=== PATIENT | male | born 1975 ===

== ENCOUNTER 2021-05-01 14:17 | Inpatient (IN) | payer BC, OTHER ==
[2021-05-01] MEDS ORDERED: MIDAZOLAM 1 MG/ML 5 ML VIAL IV STA (14:20)
[2021-05-01] MEDS ORDERED: ROCURONIUM 10 MG/ML (5 ML VIAL) IV STA (14:20)
[2021-05-01] MEDS ORDERED: AMIODARONE 360 MG in DEXTROSE 5% IN WATER 200 ML IV ONE ×2 (14:30)
[2021-05-01] MEDS ORDERED: METOPROLOL TARTRATE 5 MG/5 ML VIAL IVP STA (14:33)
[2021-05-01] MEDS ORDERED: NOREPINEPHRINE 4 MG in SODIUM CHLORIDE 0.9% 250 ML IV SCH (14:35)
[2021-05-01] MEDS ORDERED: NALOXONE 0.4 MG/ML 1 ML VIAL IV PRN (14:36)
[2021-05-01] MEDS ORDERED: HEPARIN SODIUM 1,000 UN/ML (10ML VL) IV STA (14:38)
--- NOTE | 2021-05-01 14:40 | ED ---
General Adult HPI - General Stated complaint: ROSC Source: EMS, RN notes reviewed, old records reviewed - History of Present Illness Initial comments: 45 YO presenting status post cardiac arrest. Initial call according to EMS was for an individual had collapsed while at work. He was found to be in the field. He was defibrillated by EMS. He received BVM respiration support during transport. He did also receive epinephrine and lidocaine prehospital. He had 2 episodes of recurrent V. fib and ventricular tachycardia. He received 2 defibrillations and one cardioversion. He received 1 dose of epinephrine, 1 dose of Narcan, and lidocaine prehospital. Patient did receive BVM during transport. Upon arrival the patient had a brief episode when he was alert and able to state his name and subsequently returned to ventricular fibrillation. - Related Data Allergies Allergy/AdvReac Type Severity Reaction Status Date / Time Unable to Assess Allergy Verified 05/01/21 14:27 Review of Systems ROS Statement: Those systems with pertinent positive or pertinent negative responses have been documented in the HPI. ROS Other: All systems not noted in ROS Statement are negative. General Exam General appearance: obtunded, in distress Head exam: Present: atraumatic, normocephalic Eye exam: Present: normal appearance, PERRL Respiratory exam: Present: respiratory distress, other (Patient receiving BVM) Cardiovascular Exam: Present: other (No spontaneous heart sounds) GI/Abdominal exam: Present: soft. Absent: distended, tenderness, guarding Extremities exam: Present: normal capillary refill. Absent: pedal edema, calf tenderness Neurological exam: Present: other (Patient had a brief episode where he was alert, oriented 1, moving all extremities. This was prior to rsi medication) Skin exam: Present: cyanosis, diaphoretic Course - Reevaluation(s) Reevaluation #1: 05/01/21 14:53 Please review the medical record regarding exact ACLS medications given. EKG Findings - EKG Comments: EKG Findings:: EKG: Wide complex rhythm tachycardic at rate of 156, no definitive atrial activity QRS duration widened at 162, QTC 480, ST segment elevation in the precordial leads. Procedures - Intubation Sedative: Versed Mg Given: 5 Paralytic: Rocuronium Mg Given: 50 Laryngoscope: Christen Size: 3 ET Tube Size: 7.5 ET Tube Uncuffed: Yes Tube Secured Depth (cm): 23 Tube Secured Location: lips Tube Placement Confirmation: equal breath sounds bilaterally, no breath sounds over epigastrium Patient Tolerated Procedure: well Intubation Complications: difficult intubation Additional Comments: Difficult intubation due to body habitus airway positioning. Vocal cords not visualized, cricoid repositioning performed. Patient did receive BVM in between attempts to intubate. Medical Decision Making - Medical Decision Making Patient had an out of hospital ventricular fibrillation arrest with return of spontaneous circulation. He had recurrent ventricular fibrillation and did receive defibrillation in the emergency department. He was loaded with amiodarone. He had an episode of PEA and organized bradycardia treated with both epinephrine and atropine. He was intubated. Cardiology was able to assist in the resuscitation, Dr. Aguilera available in the emergency department. Patient ultimately did have return of spontaneous circulation and was taken urgently to the [facility]. All laboratory studies and further workup is pending. I did discuss case with the admitting physician Dr. Maldonado, Dr. Portillo and Dr. Aguilera. Critical Care Time Critical Care Time: Yes Total Critical Care Time: 35 Disposition Clinical Impression: Ventricular fibrillation Disposition: ADMITTED IP TO THIS HOSP Condition: Critical Is patient prescribed a controlled substance at d/c from ED?: No Decision to Admit Reason: Admit from EC Decision Date: 05/01/21 Decision Time: 15:06
[2021-05-01] MEDS ORDERED: IV FLUID CONTINUATION 1,000 ML IV ONE (14:42)
[2021-05-01] MEDS ORDERED: LIDOCAINE 1% INJ 10MG/ML (20 ML MDV) SQ ONE (14:54)
[2021-05-01] MEDS ORDERED: HEPARIN SODIUM 1,000 UN/ML (10ML VL) ONE ×2 (14:56→16:31)
--- NOTE | 2021-05-01 15:01 | P.CRDCN ---
History of Present Illness Consult date: 05/01/21 History of present illness: HISTORY OF PRESENT ILLNESS: This is a 45-year-old male with unknown past medical history who was brought to the hospital via EMS secondary to cardiac arrest. 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 EMS was called. The patient was found to be in V. tach when EMS arrived. He was defibrillated in the field by EMS and bagged on the way to the hospital. EKG completed by EMS revealed ST elevation in septal anterolateral leads. Apparently there was some thought that the patient may have used drugs while at work. He was given Narcan by EMS with no response. Patient was lethargic but talking when he arrived to the ER. Patient then went into Vfib arrest. Patient was defibrillated and CPR was initiated. Patient received epi x 3, atropine, amiodarone, and bicarb. Patient also received a 4000 unit IV heparin bolus. Patient achieved ROSC in the emergency room. Patient was intubated by the emergency room physician. Please see code sheet for thorough code details. REVIEW OF SYSTEMS: At the time of my exam: Unable to obtain at the time of my examination secondary to mechanical ventilation PHYSICAL EXAM: VITAL SIGNS: Reviewed. GENERAL: Well-developed, unresponsive and intubated HEENT: Head is normocephalic. Pupils are equal, round. Sclerae anicteric. Mucous membranes of the mouth are moist. Neck supple. No JVD or thyromegaly LUNGS: Respirations even and unlabored-being bagged by respiratory therapy. Lungs essentially clear to auscultation bilaterally. HEART: Tachycardic. Regular rate and rhythm. S1 and S2 heard. ABDOMEN: Soft. Nondistended. Nontender. EXTREMITIES: No clubbing or cyanosis. Peripheral pulses intact. No lower extremity edema NEUROLOGIC: Obtunded ASSESSMENT: STEMI VT/VF arrest PLAN: Patient is currently intubated and there is no family present in the emergency room Patient was emergently taken for cardiac catheterization with Dr. Aguilera Will obtain 2-D echo to assess cardiac structure and function after cardiac catheterization Add aspirin, Lipitor, metoprolol Continue amiodarone infusion Further recommendations pending patient's course Nurse practitioner note has been reviewed by physician. Signing provider agrees with the documented findings, assessment, and plan of care. Medications and Allergies Allergies Allergy/AdvReac Type Severity Reaction Status Date / Time Unable to Assess Allergy Verified 05/01/21 14:27 Physical Exam Vitals: Intake and Output 04/30/21 05/01/21 05/01/21 22:59 06:59 14:59 Other: Weight 110.631 kg Results Current Medications Generic Name Dose Route Start Last Admin Trade Name Freq PRN Reason Stop Dose Admin Amiodarone HCl 360 mg/ 200 mls @ 33.333 mls/hr 05/01/21 14:30 05/01/21 14:35 Dextrose/Water IV 05/01/21 20:29 1 mg/min .Q6H ONE 33.333 mls/hr Administration Protocol 1 MG/MIN Naloxone HCl 0.2 mg 05/01/21 14:36 Naloxone 0.4 Mg/Ml 1 Ml Vial IV Q2M PRN Opioid Reversal Intake and Output 04/30/21 05/01/21 05/01/21 22:59 06:59 14:59 Other: Weight 110.631 kg Patient Weight 05/02/21 06:59 Weight 110.631 kg
[2021-05-01] MEDS: HEPARIN SODIUM 1,000 UN/ML (10ML VL) IV ONE ×4 (15:19→16:19)
[2021-05-01 15:20] LABS: Basophils # (A) 0.1 k/uL (0-0.2); Basophils % (A) 1 %; Eosinophils # (A) 0.1 k/uL (0-0.7); Eosinophils % (A) 1 %; HCT 41.1 % (39.0-53.0); HGB 13.8 gm/dL (13.0-17.5); Lymphocytes % (A) 33 %; MCH 30.3 pg (25.0-35.0); MCHC 33.6 g/dL (31.0-37.0); MCV 90.3 fL (80.0-100.0); Mean Platelet Volume 7.6; Monocytes # (A) 0.7 k/uL (0-1.0); Monocytes % (A) 5 %; Neutrophils # (A) 9.1 k/uL (1.3-7.7); Neutrophils % (A) 60 %; Platelet Count 375 k/uL (150-450); RBC 4.55 m/uL (4.30-5.90); RDW 13.1 % (11.5-15.5); WBC 15.3 k/uL (3.8-10.6)
[2021-05-01 15:31] LABS: INR 1.1 (<1.2); Partial Thromboplastin Time 48.6 sec (22.0-30.0); Prothrombin Time 11.7 sec (9.0-12.0)
[2021-05-01 15:32] LABS: Albumin 3.2 g/dL (3.5-5.0); Calcium 7.4 mg/dL (8.4-10.2); Magnesium 2.2 mg/dL (1.6-2.3); Total Bilirubin 0.5 mg/dL (0.2-1.3); Total Protein 5.9 g/dL (6.3-8.2)
[2021-05-01 15:34] VITALS: RESP 14
[2021-05-01 15:35] VITALS: BP 146/117; PULSE 135
[2021-05-01] MEDS ORDERED: IOPAMIDOL-370 100ML BTL INJ ONE (15:44)
[2021-05-01] MEDS: MIDAZOLAM 2 MG/2 ML VIAL IV ONE ×2 (16:07→16:45)
[2021-05-01] MEDS ORDERED: MIDAZOLAM 2 MG/2 ML VIAL IV ONE ×3 (16:12→17:54)
[2021-05-01] MEDS ORDERED: fentaNYL (PF) 50 MCG/ML 2 ML AMP ONE (16:13)
[2021-05-01] MEDS: fentaNYL (PF) 50 MCG/ML 2 ML AMP IV ONE ×2 (16:16→16:24)
[2021-05-01] MEDS ORDERED: POTASSIUM CHLORIDE 20 MEQ in WATER FOR INJECTION 1 100ML.BAG IVPB STA (16:18)
[2021-05-01] MEDS ORDERED: HEPARIN SODIUM,PORCINE 30 ML 30 ML ONE (16:31)
[2021-05-01] MEDS ORDERED: ASPIRIN 325 MG TAB ONE (16:56)
[2021-05-01] MEDS ORDERED: ASPIRIN 325 MG TAB OG-TUBE ONE (17:17)
[2021-05-01] MEDS ORDERED: CHLORHEXIDINE GLUCONATE 15 ML CUP MUCOUS MEM ONE (17:30)
[2021-05-01] MEDS ORDERED: SODIUM CHLORIDE 0.9% 1,000 ML IV ONE (17:45)
--- NOTE | 2021-05-01 17:46 | PCN ---
PROCEDURE NOTE DATE OF SERVICE: 05/01/2021. PROCEDURE: 1. Left heart catheterization and coronary angiography. 2. Impella heart pump placement from right femoral approach. Impella CP was placed with a 14-Chilean introducer. 3. Unsuccessful PTCA of a totally occluded LAD. PERFORMED BY: Dr. Chrissy Aguilera. ANESTHESIA: Moderate conscious sedation time was 107 minutes. 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 He was attended to by the EMT, who shocked him because of ventricular tachycardia, brought him to the emergency room, where he was again in cardiac arrest requiring multiple shocks and prolonged CPR with intubation performed in the ER by Dr. Nassar. Subsequently on Levophed drip, his pressure finally came back after prolonged CPR. He was brought to the cardiac pathology laboratory director and I talked to the sister, who was only available relative, on the phone, explained to her that we were dealing with a cardiac arrest and cardiogenic shock with a mortality rate of nearly 80%. After this discussion, I proceeded with the procedure. PROCEDURE NOTE: Under local anesthesia and strict aseptic precautions, a 6-Chilean introducer was placed in the right femoral vein and another 6-Chilean introducer in the right femoral artery. Under fluoroscopic guidance, I used an 8-Chilean and 12-Chilean dilator and then placed a 14-Chilean introducer. Subsequently I advanced an 0.035 wire with a pigtail catheter and crossed the LV. After I crossed the LV with the wire in the left ventricle, the patient went into ventricular tachycardia twice, requiring to be shocked, and he was back in sinus rhythm with sinus tachycardia. He also received 2.5 mg of metoprolol. I exchanged the wire for an 0.018 Impella wire, and over this Impella wire I advanced and positioned the Impella in a good position with decent recordings and good cardiac output of 3.4 L. The waveform was very good. Subsequently I performed coronary angiography with a right coronary diagnostic catheter and noted that the RCA was totally occluded. I then performed with a JL4 guide catheter left coronary angiogram and noted that the LAD was totally occluded after a septal branch. Circumflex did not have significant disease. I then proceeded with PCI. I used initially a run-through wire, but I was unable to cross the total occlusion which appeared now to be a chronic occlusion. I had considerable difficulty getting across the total occlusion, and the wire kept going to the septal branch. I used different combinations. With a 45-degree Supercross and a run-through wire also, I could not cross the total occlusion. At this point I decided to send him to [facility], since this seems to be more or less of a chronic occlusion. I spoke to Dr. Lino and explained to him that the patient had stabilized with Impella placement. He was on 5 mcg of Levophed. Pressure was about 118 systolic. Urine output was fairly decent once Whitten was placed and his cardiac output was 3.4 L. He will be transferred by air ambulance to [facility] pathology laboratory director for possible intervention of total occlusion of the LAD which I could not open and could not cross with a wire. I discussed this matter in detail with the patient's father and mother and also his friend who was here in the waiting room. The patient will be transferred expeditiously and I will have the parents see him prior to the transfer. This was an unsuccessful PTCA, but Impella placement helped to stabilize the patient very well. Right lower extremity Doppler pulse was good. The patient has been sedated on a propofol drip, intubated. His oxygen saturation was 98%. Blood pressure was about 118/70 with 5 mcg of Levophed and Impella with a cardiac output of 3.4 L. CARDIAC CATHETERIZATION FINDINGS: RIGHT CORONARY ARTERY: Totally occluded vessel without much antegrade flow. There were some late collaterals filling the LAD system. LEFT MAIN CORONARY ARTERY: Short, patent, disease-free vessel that bifurcates into LAD and circumflex. LEFT ANTERIOR DESCENDING CORONARY ARTERY: This vessel seems to be totally occluded after a septal branch. The diagonal branches are seen to fill late. LAD also seems to fill late, but this appears to be almost like a chronic occlusion. The septal branch is the only branch that has some flow from the LAD. LEFT POSTERIOR CIRCUMFLEX CORONARY ARTERY: Technically a codominant type vessel, gives off a first obtuse marginal then runs in the AV groove, gives 2 other obtuse marginal branches and then an AV groove branch. All these vessels have 30% to 40% narrowing and also the circumflex provides collaterals to the distal RCA branches. Circumflex therefore is nondominant, good-caliber, good-distribution vessel with 30% to 40% narrowing involving the obtuse marginal system with collaterals to the RCA. RECOMMENDATIONS: Impella placement and PCI of LAD. PCI was unsuccessful and Impella was placed successfully. Patient will be sent to [facility] for additional efforts for opening up the LAD. This was explained to the patient's family in detail. MMCHANELLE / MARIA ESTHERN: [phone] /
[2021-05-01] MEDS ORDERED: ATORVASTATIN 80 MG TAB PO SCH (21:00)
[2021-05-01] MEDS ORDERED: METOPROLOL TARTRATE 25 MG TAB PO SCH (21:00)
--- NOTE | 2021-05-01 21:45 | P.HPIM ---
History of Present Illness H&P Date: 05/01/21 Chief Complaint: s/p Cardiac arrest on field Mr. Dean is a 45-year-old male who presented to the emergency department status post cardiac arrest. The initial call to the hospital ER by EMS was for an individual who collapsed at work. Patient was found to be in ventricular tachycardia by EMS and defibrillator was applied in the field and he was bagged on the way to the hospital. EKG by EMS showed ST elevation in septal and anterolateral leads. Patient was lethargic but was communicating when he arrived to the ER then he went to [facility] and CPR was initiated. Patient received epi x3, atropine, amiodarone and bicarb and also received 4000 units of IV heparin bolus. He was intubated in the ER and STEMI code was alerted. Cardiology Dr. HUMPHREY Aguilera attended him, he was taken to the [facility] immediately. Then patient was found to have significant stenosis of right coronary artery and also left anterior descending artery. It was difficult occlusion to get through. So Impella was placed. Dr. Aguilera contacted Dr. Rai at [facility] and the patient to be airlifted to [facility]. Patient's family members were contacted about it and agreed with the transfer. I saw the patient in the [facility], he was intubated saturating at 98%. He is sedated on propofol drip with blood pressure around 130/90, on 5 mics of Levophed and Impella in place. [facility] transfer team was in the [facility] around 6 PM and he was airlifted to [facility] around 6:40 PM. Review of Systems ROS unobtainable: due to endotracheal tube Past Medical History Past Medical History: Unable to Obtain History of Any Multi-Drug Resistant Organisms: Unobtainable Past Surgical History: Unable to Obtain Past Psychological History: Unable to Obtain Smoking Status: Unknown if ever smoked Past Alcohol Use History: Unable to Obtain Past Drug Use History: Unable to Obtain Medications and Allergies Allergies Allergy/AdvReac Type Severity Reaction Status Date / Time Unable to Assess Allergy Verified 05/01/21 14:27 Physical Exam Vitals: Vital Signs Pulse Resp BP Pulse Ox 05/01/21 14:35 135 H 14 146/117 98 05/01/21 14:33 154 H 14 199/139 86 L Intake and Output 05/01/21 05/01/2105/01/21 06:59 14:59 22:59 Other: Weight 110.631 kg Patient is currently in the [employer] [facility] on the table. He is intubated and sedated. Pupils are equal and reactive to light. He is on no propofol drip. S1-S2 heard lungs are clear to auscultation. No abdominal distention. No lower extremity edema and peripheral pulses are felt bilaterally. Results CBC & Chem 7: 05/01/21 15:06 05/01/21 15:06 Labs: Abnormal Lab Results - Last 24 Hours (Table) 05/01/21 05/01/21 05/01/21 Range/Units 15:06 15:06 15:06 WBC 15.3 H (3.8-10.6) k/uL Neutrophils # 9.1 H (1.3-7.7) k/uL Lymphocytes # 5.0 H (1.0-4.8) k/uL APTT 48.6 H (22.0-30.0) sec Potassium 3.0 L (3.5-5.1) mmol/L Carbon Dioxide 16 L (22-30) mmol/L Creatinine 1.29 H (0.66-1.25) mg/dL Glucose 329 H (74-99) mg/dL Calcium 7.4 L (8.4-10.2) mg/dL AST 168 H (17-59) U/L ALT 124 H (4-49) U/L Troponin I (0.000-0.034) ng/mL Total Protein 5.9 L (6.3-8.2) g/dL Albumin 3.2 L (3.5-5.0) g/dL 05/01/21 Range/Units 15:06 WBC (3.8-10.6) k/uL Neutrophils # (1.3-7.7) k/uL Lymphocytes # (1.0-4.8) k/uL APTT (22.0-30.0) sec Potassium (3.5-5.1) mmol/L Carbon Dioxide (22-30) mmol/L Creatinine (0.66-1.25) mg/dL Glucose (74-99) mg/dL Calcium (8.4-10.2) mg/dL AST (17-59) U/L ALT (4-49) U/L Troponin I 0.121 H* (0.000-0.034) ng/mL Total Protein (6.3-8.2) g/dL Albumin (3.5-5.0) g/dL Assessment and Plan Assessment: ASSESSMENT Status post cardiac arrest on field ST elevation [place] Acute respiratory failure secondary to cardiogenic shock Status post intubation and mechanical ventilation Status post Impella device in place Obesity with BMI of 33 Patient has been airlifted to [facility] around 6:40 PM today.
[2021-05-02] MEDS ORDERED: ASPIRIN 81 MG PO SCH (09:00)
== END 2021-05-01 19:12 | disposition short-term general hospital (02) | DRG 215 ==
LOC: EC 14:17 → 2SICU 14:37
PROVIDERS: ADMIT Internal Medicine; ATTEND Internal Medicine
PROC: 3E033XZ Introduction of Vasopressor into Peripheral Vein, Percutaneous Approach (ICD-10-PCS; 2021-05-01)
PROC: 4A023N7 Measurement of Cardiac Sampling and Pressure, Left Heart, Percutaneous Approach (ICD-10-PCS; principal; 2021-05-01 15:15)
PROC: B2111ZZ Fluoroscopy of Multiple Coronary Arteries using Low Osmolar Contrast (ICD-10-PCS; principal; 2021-05-01 15:15)
PROC: 02HA3RZ Insertion of Short-term External Heart Assist System into Heart, Percutaneous Approach (ICD-10-PCS; principal; 2021-05-01 15:15)
PROC: 5A0221D Assistance with Cardiac Output using Impeller Pump, Continuous (ICD-10-PCS; principal; 2021-05-01 15:15)
PROC: 0BH17EZ Insertion of Endotracheal Airway into Trachea, Via Natural or Artificial Opening (ICD-10-PCS; 2021-05-01 15:15)
PROC: 5A1935Z Respiratory Ventilation, Less than 24 Consecutive Hours (ICD-10-PCS; 2021-05-01 15:15)
DX: I49.01 Ventricular fibrillation (principal); J96.00 Acute respiratory failure, unspecified whether with hypoxia or hypercapnia; I21.3 ST elevation (STEMI) myocardial infarction of unspecified site; I46.2 Cardiac arrest due to underlying cardiac condition; I47.2 Ventricular tachycardia; I25.10 Atherosclerotic heart disease of native coronary artery without angina pectoris; T88.4XXA Failed or difficult intubation, initial encounter; E66.9 Obesity, unspecified; Z68.33 Body mass index [BMI] 33.0-33.9, adult
CPT/HCPCS: 32551; 80053; 83735; 84484; 85025; 85610; 85730; 92950; 93005; 93454; 94002; 96365; 96375; 99291

== ENCOUNTER → 2021-06-27 | Outpatient (CLI) | payer BC ==
[2021-06-27 20:32] LABS: African American GFR (CKD) 51.9 (60.0-200.0); Anion Gap 14.8 mmol/L (10.00-18.00); Blood Urea Nitrogen 23.4 mg/dL (9.0-27.0); Calcium 9.5 mg/dL (8.7-10.3); Carbon Dioxide 21.2 mmol/L (20.0-27.5); Non-African American GFR(CKD) 44.8 (60.0-200.0); Potassium 4.6 mmol/L (3.5-5.5)
== END | disposition home or self-care (01) ==
LOC: LABWHC1 11:44
PROVIDERS: ATTEND Nurse Practitioner
DX: N17.9 Acute kidney failure, unspecified (principal); I10 Essential (primary) hypertension; I21.9 Acute myocardial infarction, unspecified
CPT/HCPCS: 36415; 80048

== ENCOUNTER 2022-02-27 09:47 | Observation (INO) | payer BC, OTHER ==
[2022-02-27] MEDS ORDERED: SODIUM CHLORIDE 0.9% 1,000 ML IV STA (10:04)
[2022-02-27] MEDS ORDERED: SODIUM CHLORIDE 0.9% 500 ML 500 ML IV ONE (10:17)
--- NOTE | 2022-02-27 10:22 | ED ---
Arrhythmia/Palpitations HPI - General Chief Complaint: Arrhythmia/Palpitations Stated Complaint: high heart rate Time Seen by Provider: 02/27/22 10:03 Source: patient, RN notes reviewed Mode of arrival: ambulatory Limitations: no limitations - History of Present Illness Initial Comments: 46-year-old male with a history of [place] and cardiac arrest in April 2021 who presents today with complaints of elevated heart rate elevated blood pressure. He states that he takes his blood pressure twice a day he notices blood pressure was elevated 140/100 also notices heart rate was 107-108 when is normally around 55. He did take his medications this morning she had no chest pain fevers chills nausea vomiting sweats no chest shortness of breath no palpitations no change in medications no change in diet. 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 He drinks about 2000 mL of fluid a day he states. No other current complaints or modifying factors he did not feel his AICD go off at all. MD Complaint: rapid heart beat - Related Data Home Medications Medication Instructions Recorded Confirmed Amiodarone [Cordarone] 300 mg PO DAILY 02/27/22 02/27/22 Apixaban [Eliquis] 5 mg PO BID 02/27/22 02/27/22 Atorvastatin Calcium [Lipitor] 40 mg PO HS 02/27/22 02/27/22 Clopidogrel [Plavix] 75 mg PO DAILY 02/27/22 02/27/22 Losartan Potassium [Cozaar] 25 mg PO DAILY 02/27/22 02/27/22 Mexiletine HCl 150 mg PO TID@0630,1430,2230 02/27/22 02/27/22 carvediloL [Coreg] 6.25 mg PO BID 02/27/22 02/27/22 Allergies Allergy/AdvReac Type Severity Reaction Status Date / Time Tetanus Vaccines and Toxoid Allergy Rash/Hives Verified 02/27/22 11:22 Review of Systems ROS Statement: Those systems with pertinent positive or pertinent negative responses have been documented in the HPI. ROS Other: All systems not noted in ROS Statement are negative. Past Medical History Past Medical History: Unable to Obtain, Myocardial Infarction ([place]) Additional Past Medical History / Comment(s): cardiac arrest apr 2021. History of Any Multi-Drug Resistant Organisms: Unobtainable Past Surgical History: Unable to Obtain, Heart Catheterization With Stent Additional Past Surgical History / Comment(s): stent x6. Past Psychological History: Unable to Obtain Smoking Status: Never smoker Past Alcohol Use History: None Reported Past Drug Use History: None Reported General Exam - General Exam Comments Initial Comments: This is a well-developed well-nourished awake alert oriented 4 male Limitations: no limitations General appearance: alert, anxious Head exam: Present: atraumatic, normocephalic, normal inspection Eye exam: Present: normal appearance, PERRL, EOMI. Absent: scleral icterus, conjunctival injection, periorbital swelling ENT exam: Present: mucous membranes dry Neck exam: Present: normal inspection, full ROM, other (No stridor JVD or bruits). Absent: tenderness, meningismus, lymphadenopathy Respiratory exam: Present: normal lung sounds bilaterally. Absent: respiratory distress, wheezes, rales, rhonchi, stridor Cardiovascular Exam: Present: normal rhythm, tachycardia, normal heart sounds. Absent: systolic murmur, diastolic murmur, rubs, gallop, clicks GI/Abdominal exam: Present: soft, normal bowel sounds. Absent: distended, tenderness, guarding, rebound, rigid Extremities exam: Present: normal inspection, full ROM, normal capillary refill. Absent: tenderness, pedal edema, joint swelling, calf tenderness Back exam: Present: normal inspection Neurological exam: Present: alert, oriented X3, CN II-XII intact Psychiatric exam: Present: normal affect, normal mood Skin exam: Present: warm, dry, intact, normal color. 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 Interval 188 QRS duration 135 daily since QTC 364/388 interventricular conduction delay evidence of ST elevation in the anterolateral leads unclear whether this is acute. EKG obtained from [facility] where th e patient and evaluation shows similar configuration. EKG Findings - EKG Results: EKG: interpreted by ERMD (Y complex tachycardia of 105 WI interval 166 QRS duration to 45 daily since QTC 442/503 right bundle-branch block left posterior fascicular block evidence of anterolateral ST elevation this is compared to an EKG done on the prior admission when the patient presented with by complex tachycardia in Se) Medical Decision Making - Medical Decision Making Patient was observed in emergency department a repeat troponin was trending upward. Dr. Padilla was consulted and did see the patient in emergency department. Patient will be admitted for further evaluation. I did discuss case with Dr. Callaway - Lab Data Result diagrams: 02/27/22 10:12 02/27/22 10:12 Lab Results 02/27/22 02/27/22 02/27/22 Range/Units 10:12 10:12 10:12 WBC 9.3 (3.8-10.6) k/uL RBC 4.88 (4.30-5.90) m/uL Hgb 14.0 (13.0-17.5) gm/dL Hct 43.2 (39.0-53.0) % MCV 88.4 (80.0-100.0) fL MCH 28.7 (25.0-35.0) pg MCHC 32.5 (31.0-37.0) g/dL RDW 12.6 (11.5-15.5) % Plt Count 268 (150-450) k/uL MPV 7.5 Neutrophils % 69 % Lymphocytes % 20 % Monocytes % 8 % Eosinophils % 1 % Basophils % 0 % Neutrophils # 6.4 (1.3-7.7) k/uL Lymphocytes # 1.9 (1.0-4.8) k/uL Monocytes # 0.7 (0-1.0) k/uL Eosinophils # 0.1 (0-0.7) k/uL Basophils # 0.0 (0-0.2) k/uL PT 11.3 (9.0-12.0) sec INR 1.1 (<1.2) APTT 26.0 (22.0-30.0) sec Sodium 139 (137-145) mmol/L Potassium 4.2 (3.5-5.1) mmol/L Chloride 104 (98-107) mmol/L Carbon Dioxide 27 (22-30) mmol/L Anion Gap 8 mmol/L BUN 15 (9-20) mg/dL Creatinine 1.54 H (0.66-1.25) mg/dL Est GFR (CKD-EPI)AfAm 62 (>60 ml/min/1.73 sqM) Est GFR (CKD-EPI)NonAf 54 (>60 ml/min/1.73 sqM) Glucose 141 H (74-99) mg/dL Calcium 9.4 (8.4-10.2) mg/dL Magnesium 2.0 (1.6-2.3) mg/dL Total Bilirubin 0.5 (0.2-1.3) mg/dL AST 59 (17-59) U/L ALT 75 H (4-49) U/L Alkaline Phosphatase 89 (38-126) U/L Troponin I (0.000-0.034) ng/mL Total Protein 7.7 (6.3-8.2) g/dL Albumin 4.4 (3.5-5.0) g/dL TSH <0.015 L (0.465-4.680) mIU/L 02/27/22 02/27/22 Range/Units 10:12 12:20 WBC (3.8-10.6) k/uL RBC (4.30-5.90) m/uL Hgb (13.0-17.5) gm/dL Hct (39.0-53.0) % MCV (80.0-100.0) fL MCH (25.0-35.0) pg MCHC (31.0-37.0) g/dL RDW (11.5-15.5) % Plt Count (150-450) k/uL MPV Neutrophils % % Lymphocytes % % Monocytes % % Eosinophils % % Basophils % % Neutrophils # (1.3-7.7) k/uL Lymphocytes # (1.0-4.8) k/uL Monocytes # (0-1.0) k/uL Eosinophils # (0-0.7) k/uL Basophils # (0-0.2) k/uL PT (9.0-12.0) sec INR (<1.2) APTT (22.0-30.0) sec Sodium (137-145) mmol/L Potassium (3.5-5.1) mmol/L Chloride (98-107) mmol/L Carbon Dioxide (22-30) mmol/L Anion Gap mmol/L BUN (9-20) mg/dL Creatinine (0.66-1.25) mg/dL Est GFR (CKD-EPI)AfAm (>60 ml/min/1.73 sqM) Est GFR (CKD-EPI)NonAf (>60 ml/min/1.73 sqM) Glucose (74-99) mg/dL Calcium (8.4-10.2) mg/dL Magnesium (1.6-2.3) mg/dL Total Bilirubin (0.2-1.3) mg/dL AST (17-59) U/L ALT (4-49) U/L Alkaline Phosphatase (38-126) U/L Troponin I 0.018 0.031 (0.000-0.034) ng/mL Total Protein (6.3-8.2) g/dL Albumin (3.5-5.0) g/dL TSH (0.465-4.680) mIU/L - Radiology Data Radiology results: report reviewed (Imaging reviewed as well as report no acute findings), image reviewed Critical Care Time Critical Care Time: Yes Total Critical Care Time: 39 Critical Care Time: Critical care time including initial presentation with history physical labs x- rays multiple reevaluation the patient multiple discussions with the patient family discussion with the admitting physician and consult physicians. Disposition Clinical Impression: Wide-complex tachycardia, Hypertension, Elevated troponin Disposition: ADMITTED IP TO THIS [facility] Condition: Stable Referrals: Nonstaff,Physician [REFERRING] - 1-2 days Decision Date: 02/27/22 Decision Time: 15:00
[2022-02-27 10:38] LABS: Basophils % (A) 0 %; Eosinophils % (A) 1 %; HCT 43.2 % (39.0-53.0); Lymphocytes # (A) 1.9 k/uL (1.0-4.8); Lymphocytes % (A) 20 %; MCH 28.7 pg (25.0-35.0); MCHC 32.5 g/dL (31.0-37.0); MCV 88.4 fL (80.0-100.0); Mean Platelet Volume 7.5; Monocytes # (A) 0.7 k/uL (0-1.0); Monocytes % (A) 8 %; Neutrophils # (A) 6.4 k/uL (1.3-7.7); Neutrophils % (A) 69 %; Platelet Count 268 k/uL (150-450); RBC 4.88 m/uL (4.30-5.90); RDW 12.6 % (11.5-15.5); WBC 9.3 k/uL (3.8-10.6)
[2022-02-27 10:39] LABS: Eosinophils # (A) 0.1 k/uL (0-0.7)
[2022-02-27 10:54] LABS: ALT 75 U/L (4-49); AST 59 U/L (17-59); African American GFR (CKD) 62 (>60 ml/min/1.73 sqM); Albumin 4.4 g/dL (3.5-5.0); Alkaline Phosphatase 89 U/L (38-126); Anion Gap 8 mmol/L; Blood Urea Nitrogen 15 mg/dL (9-20); Calcium 9.4 mg/dL (8.4-10.2); Carbon Dioxide 27 mmol/L (22-30); Chloride 104 mmol/L (98-107); Glucose 141 mg/dL (74-99); Non-African American GFR(CKD) 54 (>60 ml/min/1.73 sqM); Potassium 4.2 mmol/L (3.5-5.1); Sodium 139 mmol/L (137-145); Total Bilirubin 0.5 mg/dL (0.2-1.3); Total Protein 7.7 g/dL (6.3-8.2)
[2022-02-27 11:12] LABS: INR 1.1 (<1.2); Prothrombin Time 11.3 sec (9.0-12.0)
--- NOTE | 2022-02-27 11:20 | XR ---
EXAMINATION TYPE: XR chest 2V DATE OF EXAM: 02/27/2022 COMPARISON: NONE HISTORY: Dysrhythmia TECHNIQUE: Frontal and lateral views of the chest are obtained. FINDINGS: There is a generator in the left pectoral region, lead in the right ventricle. There is no focal air space opacity, pleural effusion, or pneumothorax seen. The cardiac silhouette size is bord hannah enlarged, coronary stent is in place, there are coronary artery calcifications. The osseous structures are intact, there is a spinal curvature. IMPRESSION: Heart size is borderline increased.
--- NOTE | 2022-02-27 13:49 | P.CRDCN ---
History of Present Illness History of present illness: This is a 46 year old male with a past medical history of VT/VF cardiac arrest transferred to [facility] in cardiogenic shock with STEMI 04/2021 status post cardiac catheterization revealed a total occlusion of the LAD chronic with no viable myocardium in the distribution, RCA was chronically totally occluded and patient underwent stenting RCA at [facility], ischemic cardiomyopathy with severe LV dysfunction status post AICD implantation at [facility], LV thrombus on Eliquis, dyslipidemia. He follows with Dr. Tamez at [facility] and has seen Dr. Aguilera in the past. We have been consulted for tachycardia and EKG changes. Patient presents emergency department secondary to his BP and heart rate being abnormal at home. He states he takes his BP morning and night. This morning BP 150/100, HR 107. He states this was higher than his normal readings, he came to the ER. He did not have any symptoms. Denies any chest pain, shortness of breath, palpitations, lightheadedness, dizziness, syncope or near syncope. He is overall feeling well. No new medications or recent cardiac workup. DIAGNOSTICS * Inital EKG reveals sinus tachycardia, HR 105, right bundle branch block, left fasicular block * Repeat EKG sinus rhythm HR 72, right bundle-branch block, ST abnormalities in anterior leads * Echocardiogram is 06/2021 revealed an EF of 30%, hypokinesis anterolateral and inferolateral wall from the base, mandible, hypokinesia inferoseptal wall from the base midportion. Mild mitral regurgitation, mild tricuspid regurgitation * Telemetry tracings indicate sinus rhythm HR 60s-70s * Chest xray no focal consolidation, pleural effusion or pneumothorax. Cardiac silhouette size is borderline enlarged * Laboratory reviewed, troponin negative 2, CBC unremarkable, sodium 139, potassium 4.2, BUN 15, serum creatinine 1.5, TSH <0.015 * Current home cardiac medications include amiodarone 200 mg daily, atorvastatin 40 mg daily, losartan 25 mg daily, carvedilol 6.25 mg twice a day, Plavix 75 mg daily, Eliquis 5 mg twice a day, mexiletine 150mg TID REVIEW OF SYSTEMS At the time of my exam: CONSTITUTIONAL: Denies fever or chills. CARDIOVASCULAR: Denies chest pain, shortness of breath, orthopnea, PND or palpitations. RESPIRATORY: Denies cough. GASTROINTESTINAL: Denies abdominal pain, diarrhea, constipation, nausea or vomiting. MUSCULOSKELETAL: Denies myalgias. NEUROLOGIC: Denies numbness, tingling, headacbe or weakness. ENDOCRINE: Denies fatigue, weight change, polydipsia or polyurina. GENITOURINARY: Denies burning, hematuria or urgency with micturation. HEMATOLOGIC: Denies history of anemia or bleeding. PHYSICAL EXAMINATION Blood [id number] HR 67, afebrile 100% on room air CONSTITUTIONAL: No apparent distress. HEENT: Head is normocephalic. Pupils are equal, round. Sclerae anicteric. Mucous membranes of the mouth are moist. No JVD. No carotid bruit. CHEST EXAMINATION: Lungs are clear to auscultation. No chest wall tenderness is noted on palpation or with deep breathing. HEART EXAMINATION: Regular rate and rhythm. S1, S2 heard. No murmurs, gallops or rub. ABDOMEN: Soft, nontender. Positive bowel sounds. EXTREMITIES: 2+ peripheral pulses, no lower extremity edema and no calf tenderness. NEUROLOGIC EXAMINATION: Patient is awake, alert and oriented x3. ASSESSMENT Episode at home with elevated BP and tachycardia, patient asymptomatic Sinus tachycardia Abnormal EKG History of VT/VF cardiac arrest transferred to [facility] in cardiogenic shock with STEMI 04/2021 Coronary artery disease. with total occlusion of the LAD chronic with no viable myocardium in the distribution, RCA was chronically totally occluded s/p stenting RCA at [facility] Ischemic cardiomyopathy with severe LV dysfunction status post AICD implantation at [facility] History of LV thrombus on Eliquis Dyslipidemia PLAN Patient's EKG reviewed with Dr. Padilla, ST abnormalities in the anterior leads likely chronic. Troponin negative x 2. Patient is asymptomatic has no symptoms. We obtain records from [facility] to compare old EKG. Obtain 2D echocardiogram and doppler study to assess cardiac structure and function. Monitor on telemetry Continue home cardiac medications Further recommendations based on clinical course Nurse practitioner note has been reviewed by physician. Signing provider agrees with the documented findings, assessment, and plan of care. Past Medical History Past Medical History: Unable to Obtain, Myocardial Infarction ([place]) Additional Past Medical History / Comment(s): cardiac arrest apr 2021. History of Any Multi-Drug Resistant Organisms: Unobtainable Past Surgical History: Unable to Obtain, Heart Catheterization With Stent Additional Past Surgical History / Comment(s): stent x6. Past Psychological History: Unable to Obtain Smoking Status: Never smoker Past Alcohol Use History: None Reported Past Drug Use History: None Reported Medications and Allergies Home Medications Medication Instructions Recorded Confirmed Type Amiodarone [Cordarone] 300 mg PO DAILY 02/27/22 02/27/22 History Apixaban [Eliquis] 5 mg PO BID 02/27/22 02/27/22 History Atorvastatin Calcium [Lipitor] 40 mg PO HS 02/27/22 02/27/22 History Clopidogrel [Plavix] 75 mg PO DAILY 02/27/22 02/27/22 History Losartan Potassium [Cozaar] 25 mg PO DAILY 02/27/22 02/27/22 History Mexiletine HCl 150 mg PO TID@0630,1430,2230 02/27/22 02/27/22 History carvediloL [Coreg] 6.25 mg PO BID 02/27/22 02/27/22 History Allergies Allergy/AdvReac Type Severity Reaction Status Date / Time Tetanus Vaccines and Toxoid Allergy Rash/Hives Verified 02/27/22 11:22 Physical Exam Vitals: Vital Signs Temp Pulse Pulse Resp BP Pulse Ox 02/27/22 10:14 105 H 147/108 02/27/22 10:13 106 H 02/27/22 09:51 97.8 F 104 H 18 166/115 100 Intake and Output 02/26/22 02/27/22 02/27/22 22:59 06:59 14:59 Other: Weight 77.564 kg Results 02/27/22 10:12 02/27/22 10:12 Cardiac Enzymes 02/27/22 02/27/22 Range/Units 10:12 10:12 AST 59 (17-59) U/L Troponin I 0.018 (0.000-0.034) ng/mL Coagulation 02/27/22 Range/Units 10:12 PT 11.3 (9.0-12.0) sec APTT 26.0 (22.0-30.0) sec CBC 02/27/22 Range/Units 10:12 WBC 9.3 (3.8-10.6) k/uL RBC 4.88 (4.30-5.90) m/uL Hgb 14.0 (13.0-17.5) gm/dL Hct 43.2 (39.0-53.0) % Plt Count 268 (150-450) k/uL Comprehensive Metabolic Panel 02/27/22 Range/Units 10:12 Sodium 139 (137-145) mmol/L Potassium 4.2 (3.5-5.1) mmol/L Chloride 104 (98-107) mmol/L Carbon Dioxide 27 (22-30) mmol/L BUN 15 (9-20) mg/dL Creatinine 1.54 H (0.66-1.25) mg/dL Glucose 141 H (74-99) mg/dL Calcium 9.4 (8.4-10.2) mg/dL AST 59 (17-59) U/L ALT 75 H (4-49) U/L Alkaline Phosphatase 89 (38-126) U/L Total Protein 7.7 (6.3-8.2) g/dL Albumin 4.4 (3.5-5.0) g/dL Current Medications Generic Name Dose Route Start Last Admin Trade Name Freq PRN Reason Stop Dose Admin Amiodarone HCl 300 mg 02/28/22 09:00 Amiodarone 200 Mg Tab PO DAILY KRISHNA Apixaban 5 mg 02/27/22 21:00 Apixaban 5 Mg Tab PO BID KRISHNA Protocol Atorvastatin Calcium 40 mg 02/27/22 21:00 Atorvastatin 40 Mg Tab PO HS KRISHNA Carvedilol 6.25 mg 02/27/22 21:00 Carvedilol 6.25 Mg Tab PO BID KRISHNA Clopidogrel Bisulfate 75 mg 02/28/22 09:00 Clopidogrel 75 Mg Tab PO DAILY KRISHNA Sodium Chloride 1,000 mls @ 50 mls/hr 02/27/22 10:04 02/27/22 11:30 Saline 0.9% IV 02/28/22 06:03 Not Given .Q20H STA Losartan Potassium 25 mg 02/28/22 09:00 Losartan 25 Mg Tab PO DAILY KRISHNA Mexiletine HCl 150 mg 02/27/22 14:30 Mexiletine 150 Mg Cap PO TID@0630,1430,2230 KRISHNA Intake and Output 02/26/22 02/27/22 02/27/22 22:59 06:59 14:59 Other: Weight 77.564 kg Patient Weight 02/28/22 06:59 Weight 77.564 kg 02/27/22 10:12 02/27/22 10:12
[2022-02-27] MEDS ORDERED: NITROGLYCERIN SL TABS 0.4 MG TAB SUBLINGUAL PRN (15:23)
--- NOTE | 2022-02-27 15:49 | P.HPIM ---
History of Present Illness H&P Date: 02/27/22 Chief Complaint: hypertension, tachycardia 46-year-old man with a medical history of CAD, VT/VF cardiac arrest with STEMI in April 2021, hypertension, hyperlipidemia presented after noting elevated blood pressure and fast heart rate. Patient says that he takes his blood pressure twice a day and noticed that it was more elevated that is normal for him, at 140/100, he also noticed that he was tachycardic to 106 whereas normally he is 55. He states he has taken his blood pressure medications and heart medications. Otherwise, he has no symptoms. He denies fevers, chills, nausea, vomiting, chest pain, palpitations, syncope, presyncope, cough, dyspnea, abdominal pain, constipation, diarrhea, dysuria, dyschezia, numbness/weakness of extremities. In the emergency room, patient is afebrile, 166/115, heart rate 104, 100% on room air. CBC is unremarkable. Chemistries are unremarkable. LFTs show mild elevation of AST to 75, otherwise unremarkable. Initial troponin was 0.018. Repeat troponin was 0.031. TSH was less than 0.015, free T4 is pending. Coags are unremarkable. Initial EKG shows wide complex tachycardia likely sinus with aberrancy. Repeat EKG is in normal sinus rhythm with chronic ST elevation changes in the anterior leads. Chest x-ray demonstrates a heart size is borderline increased. Cardiology was consulted and recommended observing the patient for 1 night. All Systems reviewed and pertinent positives and negatives noted in HPI, all other symptoms are negative Gen: in no apparent distress, resting comfortably in bed Eyes: PERRL, no scleral injection or icterus HENT: normocephalic, atraumatic, good hearing acuity, moist mucous membranes Neck: no tracheal deviation, full range of motion Resp: good air exchange, breathing comfortably with no accessory muscle use, no tactile fremitus CVS: good distal perfusion x 4, no pitting edema GI: soft, NTTP, ND, no hepatosplenomegaly : no suprapubic tenderness, no CVAT, mijares catheter not present MSK: no clubbing, no cyanosis, no noted contractures of extremities Skin: no noted rashes, petechiae; temperature of skin is appropriate Neuro: moving all extremities without signs of weakness, CN II-XII intact Psych: cooperative, euthymic mood, insight and judgment intact Assessment/plan: Tachycardia Hypertension History of CAD History of cardiac arrest Hyperlipidemia Low TSH Plan: Admit to observation, telemetry -Cardiology consult -Obtain free T4 -Trend troponins -Resume home meds Past Medical History Past Medical History: Unable to Obtain, Myocardial Infarction ([place]) Additional Past Medical History / Comment(s): cardiac arrest apr 2021. History of Any Multi-Drug Resistant Organisms: Unobtainable Past Surgical History: Unable to Obtain, Heart Catheterization With Stent Additional Past Surgical History / Comment(s): stent x6. Past Psychological History: Unable to Obtain Smoking Status: Never smoker Past Alcohol Use History: None Reported Past Drug Use History: None Reported Medications and Allergies Home Medications Medication Instructions Recorded Confirmed Type Amiodarone [Cordarone] 300 mg PO DAILY 02/27/22 02/27/22 History Apixaban [Eliquis] 5 mg PO BID 02/27/22 02/27/22 History Atorvastatin Calcium [Lipitor] 40 mg PO HS 02/27/22 02/27/22 History Clopidogrel [Plavix] 75 mg PO DAILY 02/27/22 02/27/22 History Losartan Potassium [Cozaar] 25 mg PO DAILY 02/27/22 02/27/22 History Mexiletine HCl 150 mg PO TID@0630,1430,2230 02/27/22 02/27/22 History carvediloL [Coreg] 6.25 mg PO BID 02/27/22 02/27/22 History Allergies Allergy/AdvReac Type Severity Reaction Status Date / Time Tetanus Vaccines and Toxoid Allergy Rash/Hives Verified 02/27/22 11:22 Physical Exam Osteopathic Statement: *. No significant issues noted on an osteopathic structural exam other than those noted in the History and Physical/Consult. Vitals: Vital Signs Temp Pulse Pulse Resp BP Pulse Ox 02/27/22 10:14 105 H 147/108 02/27/22 10:13 106 H 02/27/22 09:51 97.8 F 104 H 18 166/115 100 Intake and Output 02/27/22 02/27/22 02/27/22 06:59 14:59 22:59 Other: Weight 77.564 kg Results CBC & Chem 7: 02/27/22 10:12 02/27/22 10:12 Labs: Abnormal Lab Results - Last 24 Hours (Table) 07/26/22 Range/Units 10:12 Creatinine 1.54 H (0.66-1.25) mg/dL Glucose 141 H (74-99) mg/dL ALT 75 H (4-49) U/L TSH <0.015 L (0.465-4.680) mIU/L
[2022-02-27] MEDS: MEXILETINE 150 MG CAP PO SCH ×2 (16:31→22:06)
[2022-02-27] MEDS ORDERED: carvediloL 6.25 MG TAB PO SCH (17:30)
[2022-02-27] MEDS ORDERED: ATORVASTATIN 40 MG TAB PO SCH (21:00)
[2022-02-27] MEDS: APIXABAN 5 MG TAB PO SCH (21:07)
[2022-02-27] MEDS: predniSONE 50 MG TAB PO SCH (21:07)
[2022-02-27] MEDS: carvediloL 6.25 MG TAB PO SCH (21:07)
--- NOTE | 2022-02-27 22:11 | US ---
EXAMINATION TYPE: US thyroid st tissue head/neck DATE OF EXAM: 02/27/2022 COMPARISON: NONE CLINICAL HISTORY: thyrotoxicosis. GLAND SIZE: Right Lobe: 3.7 x 2.3 x 2.1 cm Overall Parenchyma: heterogenous Left Lobe: 4.3 x 2.5 x 1.6 cm Overall Parenchyma: heterogeneous Isthmus Thickness: 0.2 cm No significant increased vascularity bilaterally. NODULES RIGHT: # of nodules measured on right: 0 LEFT: # of nodules measured on left: 0 ISTHMUS: # of nodules measured in the isthmus: 0 Bilateral neck scanned, no evidence of lymphadenopathy. IMPRESSION: Enlarged thyroid bilaterally without evidence of discrete nodule. Findings may relate to multinodular goiter. Correlate with serum markers.
[2022-02-28] MEDS: MEXILETINE 150 MG CAP PO SCH (06:16)
[2022-02-28 07:27] VITALS: BP 133/74; PULSE 63; RESP 12; TEMP 97.8
[2022-02-28] MEDS ORDERED: MEXILETINE 200 MG CAP PO SCH (08:45)
[2022-02-28] MEDS ORDERED: ASPIRIN 325 MG TAB PO SCH (09:00)
[2022-02-28] MEDS ORDERED: LOSARTAN 25 MG TAB PO SCH (09:00)
[2022-02-28] MEDS ORDERED: AMIODARONE 200 MG TAB PO SCH (09:00)
[2022-02-28] MEDS ORDERED: AMIODARONE 100 MG TAB PO SCH (09:00)
[2022-02-28] MEDS ORDERED: methIMAzole 5 MG TAB PO SCH (09:00)
[2022-02-28] MEDS ORDERED: CLOPIDOGREL 75 MG TAB PO SCH (09:00)
[2022-02-28] MEDS: APIXABAN 5 MG TAB PO SCH (09:16)
[2022-02-28] MEDS: carvediloL 6.25 MG TAB PO SCH (09:16)
[2022-02-28] MEDS: predniSONE 50 MG TAB PO SCH (09:17)
[2022-02-28 09:27] LABS: HDL Cholesterol 43.7 mg/dL (40.00-60.00); Triglycerides 45.2 mg/dL (0.00-149.00)
[2022-02-28 09:40] LABS: Chol/HDL Ratio 2.88 Ratio; LDL Cholesterol,Direct Reflex 73.5 mg/dL (0.00-129.00)
--- NOTE | 2022-02-28 09:49 | CA ---
Transthoracic Echo Report Name: Jaylin Dean Age: 46 Gender: M : 1975 Exam Date: 02/27/2022 13:37 Exam Location: [place] [facility] Ht (in): 67 Wt (lb): 171 Ordering Physician: Shana Sanders Attending/Referring Phys: Locomotive Inspector Alicia Page RDCS Procedure CPT: Indications: LV function Cardiac Hx: AICD Technical Quality: Good Contrast 1: Total Dose (mL): Contrast 2: Total Dose (mL): MEASUREMENTS (Male / Female) Normal Values 2D ECHO LV Diastolic Diameter PLAX 5.4 cm 4.2 - 5.9 / 3.9 - 5.3 cm LV Systolic Diameter PLAX 5.0 cm IVS Diastolic Thickness 1.0 cm 0.6 - 1.0 / 0.6 - 0.9 cm LVPW Diastolic Thickness 1.1 cm 0.6 - 1.0 / 0.6 - 0.9 cm LV Relative Wall Thickness 0.4 RV Internal Dim ED PLAX 3.7 cm LA Systolic Diameter LX 3.6 cm 3.0 - 4.0 / 2.7 - 3.8 cm LV Diastolic Volume MOD BP 159.9 cm??? 67 - 155 / 56 - 104 cm??? LV Systolic Volume MOD BP 79.9 cm??? 22 - 58 / 19 - 49 cm??? LV Ejection Fraction MOD BP 50.0 % >= 55 % LV Diastolic Volume MOD 4C 168.1 cm??? LV Systolic Volume MOD 4C 90.6 cm??? LV Ejection Fraction MOD 4C 46.1 % LV Diastolic Length 4C 10.3 cm LV Systolic Length 4C 8.9 cm LV Diastolic Volume MOD 2C 165.9 cm??? LV Systolic Volume MOD 2C 68.7 cm??? LV Ejection Fraction MOD 2C 58.6 % LV Diastolic Length 2C 9.0 cm LV Systolic Length 2C 5.7 cm LA Volume 55.3 cm??? 18 - 58 / 22 - 52 cm??? M-MODE Aortic Root Diameter MM 2.7 cm MV E Point Septal Separation 0.8 cm AV Cusp Separation MM 2.1 cm DOPPLER AV Peak Velocity 129.3 cm/s AV Peak Gradient 6.7 mmHg MV Area PHT 4.2 cm??? Mitral E Point Velocity 81.1 cm/s Mitral A Point Velocity 92.7 cm/s Mitral E to A Ratio 0.9 MV Deceleration Time 181.1 ms MV E' Velocity 5.9 cm/s Mitral E to MV E' Ratio 13.7 TR Peak Velocity 222.6 cm/s TR Peak Gradient 19.8 mmHg Right Ventricular Systolic Press 23.8 mmHg FINDINGS Left Ventricle Left ventricular ejection fraction is estimated at 30-35 %. Left ventricular cavity size normal. Borderline left ventricular hypertrophy. Anterior wall and septal akinesia Right Ventricle Mild right ventricular dilatation. Right ventricular systolic pressure within normal limits. Right Atrium Normal right atrial size Left Atrium Normal left atrial size. No evidence for an atrial septal defect. Mitral Valve Mitral annular calcification. Structurally normal mitral valve. No mitral stenosis, regurgitation or prolapse. Aortic Valve Trileaflet aortic valve. No aortic valve stenosis or regurgitation. Tricuspid Valve Mild tricuspid regurgitation. Pulmonic Valve Pulmonic valve not well visualized. Pericardium Normal pericardium. No pericardial effusion. Aorta Normal size aortic root and proximal ascending aorta. CONCLUSIONS Left ventricle is at upper limits of normal with the anteroseptal apical akinesia ejection fraction of 30-35% with mild right ventricular enlargement, no significant abnormality on the Doppler exam and no pericardial effusion Previewed by: Dr. Neida Aguilera MD (Electronically Signed) Final Date: 28 February 2022 09:48
--- NOTE | 2022-02-28 12:30 | P.DS ---
Providers Date of admission: 02/27/22 15:25 Expected date of discharge: 02/28/22 Attending physician: Travis Callaway MD Consults: 02/27/22 13:05 Consult Physician Urgent Consulting Provider: Erik Padilla Consult Reason/Comments: EKG changes, tachycardia Do you want consulting provider notified?: Already Contacted Primary care physician: Stated None Hospital Course: Amiodarone-induced thyroiditis Tachycardia Hypertension History of CAD History of cardiac arrest Hyperlipidemia 46-year-old man with a medical history of CAD, VT/VF cardiac arrest with STEMI in April 2021, hypertension, hyperlipidemia presented after noting elevated blood pressure and fast heart rate. In the emergency room, patient is afebrile, 166/115, heart rate 104, 100% on room air. CBC is unremarkable. Chemistries are unremarkable. LFTs show mild elevation of AST to 75, otherwise unremarkable. Initial troponin was 0.018. Repeat troponin was 0.031. TSH was less than 0.015, free T4 is pending. Coags are unremarkable. Initial EKG shows wide complex tachycardia likely sinus with aberrancy. Repeat EKG is in normal sinus rhythm with chronic ST elevation changes in the anterior leads. Chest x- ray demonstrates a heart size is borderline increased. Cardiology was consulted and recommended observing the patient for 1 night. Patient's free T4 ultimately came back high and patient was noted to have amiodarone-induced thyrotoxicosis. Patient was seen by cardiology who recommended discontinuing amiodarone, increasing mexiletine, starting methimazole. Patient was also started on steroid. Patient was referred to endocrinology as well as electrophysiology on follow-up. Patient was discharged with the medication regimen, and appropriate follow-up. Gen: in no apparent distress, resting comfortably in bed Eyes: PERRL, no scleral injection or icterus HENT: normocephalic, atraumatic, good hearing acuity, moist mucous membranes Neck: no tracheal deviation, full range of motion Resp: good air exchange, breathing comfortably with no accessory muscle use, no tactile fremitus CVS: good distal perfusion x 4, no pitting edema GI: soft, NTTP, ND, no hepatosplenomegaly : no suprapubic tenderness, no CVAT, mijares catheter not present MSK: no clubbing, no cyanosis, no noted contractures of extremities Skin: no noted rashes, petechiae; temperature of skin is appropriate Neuro: moving all extremities without signs of weakness, CN II-XII intact Psych: cooperative, euthymic mood, insight and judgment intact Patient Condition at Discharge: Good Plan - Discharge Summary New Discharge Prescriptions: New predniSONE [Deltasone] 20 mg PO DAILY #5 tab methIMAzole [Tapazole] 5 mg PO BID #60 tab Mexiletine [Mexitil] 200 mg PO Q8HR #90 cap Continue Losartan Potassium [Cozaar] 25 mg PO DAILY Clopidogrel [Plavix] 75 mg PO DAILY Mexiletine HCl 150 mg PO TID@0630,1430,2230 Atorvastatin Calcium [Lipitor] 40 mg PO HS carvediloL [Coreg] 6.25 mg PO BID Apixaban [Eliquis] 5 mg PO BID Discontinued Amiodarone [Cordarone] 300 mg PO DAILY Discharge Medication List Apixaban [Eliquis] 5 mg PO BID 02/27/22 [History] Atorvastatin Calcium [Lipitor] 40 mg PO HS 02/27/22 [History] Clopidogrel [Plavix] 75 mg PO DAILY 02/27/22 [History] Losartan Potassium [Cozaar] 25 mg PO DAILY 02/27/22 [History] Mexiletine HCl 150 mg PO TID@0630,1430,2230 02/27/22 [History] carvediloL [Coreg] 6.25 mg PO BID 02/27/22 [History] Mexiletine [Mexitil] 200 mg PO Q8HR #90 cap 02/28/22 [Rx] methIMAzole [Tapazole] 5 mg PO BID #60 tab 02/28/22 [Rx] predniSONE [Deltasone] 20 mg PO DAILY #5 tab 02/28/22 [Rx] Follow up Appointment(s)/Referral(s): Garcia Barboza MD [STAFF PHYSICIAN] - 03/06/22 10:15 am Ekaterinataff,Physician [REFERRING] - 1-2 days Fide Brown MD [STAFF PHYSICIAN] - 1 Week Discharge Disposition: HOME SELF-CARE
--- NOTE | 2022-02-28 13:29 | PN ---
PROGRESS NOTE This is a 46-year-old gentleman with significant ischemic cardiomyopathy, ejection fraction of 30% to 35%, with extensive wall motion abnormality in the LAD distribution. Patient presented with cardiac arrest sometime last fall. He had RCA PCI performed. Circumflex has no significant disease and LAD is totally occluded and chronic. Patient came in with tachycardia, palpitations, was in sinus tachycardia with a right bundle. This is a rate-related bundle branch block. Patient has previous anterior [place]. He is on amiodarone and mexiletine combination for ventricular tachycardia and sudden cardiac . He also has an ICD. However, his thyroid functions are abnormal. He is hyperthyroid with more than 2.0 of free T4 and also TSH is nondetectable. I am recommending we will discontinue amiodarone, increase mexiletine to 200 mg t.i.d., add Tapazole 5 mg b.i.d. Advised to see his zoogler and family member caretaker at [facility] and also seek endocrinology evaluation. I discussed my thoughts in detail with the patient and gave him written instructions. Physical exam revealed no JVD. S1-S2 heard normally. No significant murmurs. Lungs are clear. Abdomen and lower extremity exam unchanged. I discussed my thoughts in detail with the patient. He can be discharged today and I will see him in the office as scheduled. MMODL / IJN: [id number] /
== END 2022-02-28 13:25 | disposition home or self-care (01) ==
LOC: EC 09:47 → 6NMEDSUR 15:25
PROVIDERS: ADMIT Internal Medicine; ATTEND Internal Medicine
DX: E06.4 Drug-induced thyroiditis (principal); T46.2X5A Adverse effect of other antidysrhythmic drugs, initial encounter; I11.9 Hypertensive heart disease without heart failure; R77.8 Other specified abnormalities of plasma proteins; I25.2 Old myocardial infarction; I45.2 Bifascicular block; I25.10 Atherosclerotic heart disease of native coronary artery without angina pectoris; I25.5 Ischemic cardiomyopathy; M43.9 Deforming dorsopathy, unspecified; E78.5 Hyperlipidemia, unspecified; E05.90 Thyrotoxicosis, unspecified without thyrotoxic crisis or storm; I08.1 Rheumatic disorders of both mitral and tricuspid valves; Z86.74 Personal history of sudden cardiac arrest; Z95.810 Presence of automatic (implantable) cardiac defibrillator; Z79.899 Other long term (current) drug therapy; Z79.01 Long term (current) use of anticoagulants; Z79.02 Long term (current) use of antithrombotics/antiplatelets
CPT/HCPCS: 99291; 36415; 93005; 93306; 84439; 80061; 80053; 83735; 84443; 84484; 85025; 85610; 85730; 83721; 71046; 76536; G0378 ×2; J7512

== ENCOUNTER 2022-03-07 18:21 | Observation (INO) | payer BC ==
[2022-03-07 19:59] LABS: INR 1.1 (<1.2); Prothrombin Time 11.7 sec (9.0-12.0)
[2022-03-07 20:00] LABS: Potassium 3.9 mmol/L (3.5-5.1); Total Bilirubin 0.6 mg/dL (0.2-1.3); Total Protein 6.9 g/dL (6.3-8.2)
[2022-03-07 20:01] LABS: Basophils % (A) 0 %; Eosinophils # (A) 0.1 k/uL (0-0.7); Eosinophils % (A) 1 %; HCT 42.4 % (39.0-53.0); HGB 14.3 gm/dL (13.0-17.5); Lymphocytes # (A) 0.7 k/uL (1.0-4.8); Lymphocytes % (A) 7 %; MCH 29.2 pg (25.0-35.0); MCHC 33.7 g/dL (31.0-37.0); MCV 86.8 fL (80.0-100.0); Monocytes # (A) 0.5 k/uL (0-1.0); Monocytes % (A) 5 %; Neutrophils # (A) 8.4 k/uL (1.3-7.7); Neutrophils % (A) 87 %; Platelet Count 163 k/uL (150-450); RBC 4.88 m/uL (4.30-5.90); WBC 9.7 k/uL (3.8-10.6)
--- NOTE | 2022-03-07 20:06 | XR ---
EXAMINATION TYPE: XR chest 2V DATE OF EXAM: 03/07/2022 COMPARISON: 02/27/2022 HISTORY: Syncope TECHNIQUE: FINDINGS: Heart and mediastinum are normal. Lungs are clear. Diaphragm is normal. There is left axill dean pacemaker. There is no pleural effusion. IMPRESSION: No active cardiopulmonary disease. Normal heart. No change.
[2022-03-07] MEDS ORDERED: BEBTELOVIMAB (EUA) 175 MG/2 ML VIAL IV ONE (21:30)
[2022-03-07] MEDS ORDERED: ACETAMINOPHEN TAB 325 MG TAB PO PRN (21:39)
[2022-03-07] MEDS ORDERED: NALOXONE 0.4 MG/ML 1 ML VIAL IV PRN (21:39)
--- NOTE | 2022-03-07 21:48 | ED ---
General Adult HPI - General Chief complaint: Syncope Stated complaint: Covid+, syncope Time Seen by Provider: 03/07/22 19:17 Source: patient, RN notes reviewed, old records reviewed Mode of arrival: ambulatory Limitations: no limitations - History of Present Illness Initial comments: 46-year-old male recently admitted presents for evaluation of brief loss consciousness. Patient is currently Covid positive. He was presenting to an outside hospital for monoclonal antibodies while driving he had a loss of consciousness. There was no chest pain or palpitations. Patient does not feel his defibrillator went off. He has history of previous ventricular defibrillation and cardiac arrest. He has known CAD. Patient is asymptomatic at the time my evaluation. No dyspnea. No chest pain. He has been eating and drinking. - Related Data Home Medications Medication Instructions Recorded Confirmed Apixaban [Eliquis] 5 mg PO BID 02/27/22 02/27/22 Atorvastatin Calcium [Lipitor] 40 mg PO HS 02/27/22 02/27/22 Clopidogrel [Plavix] 75 mg PO DAILY 02/27/22 02/27/22 Losartan Potassium [Cozaar] 25 mg PO DAILY 02/27/22 02/27/22 Mexiletine HCl 150 mg PO TID@0630,1430,2230 02/27/22 02/27/22 carvediloL [Coreg] 6.25 mg PO BID 02/27/22 02/27/22 Previous Rx's Medication Instructions Recorded Mexiletine [Mexitil] 200 mg PO Q8HR #90 cap 02/28/22 Mexiletine [Mexitil] 200 mg PO Q8HR #90 capsule 02/28/22 methIMAzole [Tapazole] 5 mg PO BID #60 tab 02/28/22 predniSONE [Deltasone] 20 mg PO DAILY #5 tab 02/28/22 Allergies Allergy/AdvReac Type Severity Reaction Status Date / Time Tetanus Vaccines and Toxoid Allergy Rash/Hives Verified 03/07/22 19:11 Review of Systems ROS Statement: Those systems with pertinent positive or pertinent negative responses have been documented in the HPI. ROS Other: All systems not noted in ROS Statement are negative. Past Medical History Past Medical History: Myocardial Infarction ([place]) Additional Past Medical History / Comment(s): cardiac arrest apr 2021. Last Myocardial Infarction Date:: 05/01/2021 History of Any Multi-Drug Resistant Organisms: Unobtainable Past Surgical History: Unable to Obtain, Heart Catheterization With Stent Additional Past Surgical History / Comment(s): stent x6. Date of Last Stent Placement:: 06/14/2021 Past Psychological History: Unable to Obtain Smoking Status: Never smoker Past Alcohol Use History: None Reported Past Drug Use History: None Reported General Exam Limitations: no limitations General appearance: alert, in no apparent distress Head exam: Present: atraumatic, normocephalic Eye exam: Present: normal appearance, PERRL ENT exam: Present: normal exam Neck exam: Present: normal inspection. Absent: tenderness, meningismus Respiratory exam: Present: normal lung sounds bilaterally. Absent: respiratory distress, wheezes Cardiovascular Exam: Present: regular rate, normal rhythm GI/Abdominal exam: Present: soft. Absent: distended, tenderness, guarding, re bound Extremities exam: Present: normal inspection, normal capillary refill. Absent: pedal edema Neurological exam: Present: alert, oriented X3, CN II-XII intact. Absent: motor sensory deficit Psychiatric exam: Present: normal affect, normal mood Skin exam: Present: warm, dry, intact Course Vital Signs 03/07/22 19:08 Temperature 99.1 F Pulse Rate 63 Respiratory 16 Rate Blood Pressure 103/65 O2 Sat by Pulse 100 Oximetry EKG Findings - EKG Comments: EKG Findings:: EKG: Sinus rhythm ventricular rate of 62, NC interval 181, QRS duration 120, QTC 368, ST segment elevation in lead V3 and V4 which is stable from prior EKGs. Medical Decision Making - Medical Decision Making 46-year-old male presenting with brief syncopal episode, known coronavirus infection for the past 2 days. Patient well-appearing with stable vitals. He did receive workup for his syncopal episode prior to my evaluation. He has a normal CBC. He has mildly elevated troponin which appears chronic for this patient. His creatinine is 1.51. He has a transaminitis without any abdominal pain or vomiting. No abdominal tenderness on exam. This level will be repeated. His cardiac enzymes will be trended. Be monitored on telemetry with cardiology consultation both for his syncopal episode and is mildly elevated troponin. Case discussed with Hawa ortega for [facility] hospitalists. - Lab Data Result diagrams: 03/07/22 19:14 03/07/22 19:14 Lab Results 0803/07/22 03/07/22 Range/Units 19:14 19:14 19:14 WBC 9.7 (3.8-10.6) k/uL RBC 4.88 (4.30-5.90) m/uL Hgb 14.3 (13.0-17.5) gm/dL Hct 42.4 (39.0-53.0) % MCV 86.8 (80.0-100.0) fL MCH 29.2 (25.0-35.0) pg MCHC 33.7 (31.0-37.0) g/dL RDW 13.0 (11.5-15.5) % Plt Count 163 (150-450) k/uL MPV 8.0 Neutrophils % 87 % Lymphocytes % 7 % Monocytes % 5 % Eosinophils % 1 % Basophils % 0 % Neutrophils # 8.4 H (1.3-7.7) k/uL Lymphocytes # 0.7 L (1.0-4.8) k/uL Monocytes # 0.5 (0-1.0) k/uL Eosinophils # 0.1 (0-0.7) k/uL Basophils # 0.0 (0-0.2) k/uL PT 11.7 (9.0-12.0) sec INR 1.1 (<1.2) APTT 27.0 (22.0-30.0) sec Sodium 134 L (137-145) mmol/L Potassium 3.9 (3.5-5.1) mmol/L Chloride 99 (98-107) mmol/L Carbon Dioxide 29 (22-30) mmol/L Anion Gap 6 mmol/L BUN 18 (9-20) mg/dL Creatinine 1.51 H (0.66-1.25) mg/dL Est GFR (CKD-EPI)AfAm 64 (>60 ml/min/1.73 sqM) Est GFR (CKD-EPI)NonAf 55 (>60 ml/min/1.73 sqM) Glucose 98 (74-99) mg/dL Calcium 9.0 (8.4-10.2) mg/dL Total Bilirubin 0.6 (0.2-1.3) mg/dL AST 1257 H (17-59) U/L ALT 1321 H (4-49) U/L Alkaline Phosphatase 69 (38-126) U/L Troponin I (0.000-0.034) ng/mL Total Protein 6.9 (6.3-8.2) g/dL Albumin 4.0 (3.5-5.0) g/dL 03/07/22 Range/Units 19:14 WBC (3.8-10.6) k/uL RBC (4.30-5.90) m/uL Hgb (13.0-17.5) gm/dL Hct (39.0-53.0) % MCV (80.0-100.0) fL MCH (25.0-35.0) pg MCHC (31.0-37.0) g/dL RDW (11.5-15.5) % Plt Count (150-450) k/uL MPV Neutrophils % % Lymphocytes % % Monocytes % % Eosinophils % % Basophils % % Neutrophils # (1.3-7.7) k/uL Lymphocytes # (1.0-4.8) k/uL Monocytes # (0-1.0) k/uL Eosinophils # (0-0.7) k/uL Basophils # (0-0.2) k/uL PT (9.0-12.0) sec INR (<1.2) APTT (22.0-30.0) sec Sodium (137-145) mmol/L Potassium (3.5-5.1) mmol/L Chloride (98-107) mmol/L Carbon Dioxide (22-30) mmol/L Anion Gap mmol/L BUN (9-20) mg/dL Creatinine (0.66-1.25) mg/dL Est GFR (CKD-EPI)AfAm (>60 ml/min/1.73 sqM) Est GFR (CKD-EPI)NonAf (>60 ml/min/1.73 sqM) Glucose (74-99) mg/dL Calcium (8.4-10.2) mg/dL Total Bilirubin (0.2-1.3) mg/dL AST (17-59) U/L ALT (4-49) U/L Alkaline Phosphatase (38-126) U/L Troponin I 0.081 H* (0.000-0.034) ng/mL Total Protein (6.3-8.2) g/dL Albumin (3.5-5.0) g/dL Disposition Clinical Impression: Elevated troponin, COVID-19, Syncope, Transaminitis Disposition: ADMITTED IP TO THIS HOSP Condition: Stable Is patient prescribed a controlled substance at d/c from ED?: No Referrals: None,Stated [Primary Care Provider] - 1-2 days Time of Disposition: 21:20
[2022-03-07] MEDS: SODIUM CHLORIDE 0.9% 1,000 ML IV SCH (22:12)
[2022-03-08] MEDS: MEXILETINE 200 MG CAP PO SCH ×3 (06:20→20:47)
[2022-03-08] MEDS: carvediloL 6.25 MG TAB PO SCH ×2 (08:09→20:45)
[2022-03-08] MEDS: CLOPIDOGREL 75 MG TAB PO SCH (08:09)
[2022-03-08] MEDS: LOSARTAN 25 MG TAB PO SCH (08:09)
[2022-03-08] MEDS: APIXABAN 5 MG TAB PO SCH ×2 (08:09→20:44)
[2022-03-08] MEDS ORDERED: methIMAzole 5 MG TAB PO SCH (09:00)
[2022-03-08 10:28] LABS: Basophils % (A) 1 %; Eosinophils % (A) 0 %; HCT 38.4 % (39.0-53.0); HGB 12.6 gm/dL (13.0-17.5); Lymphocytes % (A) 17 %; MCH 28.9 pg (25.0-35.0); MCHC 32.8 g/dL (31.0-37.0); MCV 87.9 fL (80.0-100.0); Mean Platelet Volume 7.8; Monocytes # (A) 0.3 k/uL (0-1.0); Monocytes % (A) 5 %; Neutrophils # (A) 4.5 k/uL (1.3-7.7); Neutrophils % (A) 77 %; Platelet Count 121 k/uL (150-450); RBC 4.37 m/uL (4.30-5.90); RDW 13.1 % (11.5-15.5); WBC 5.8 k/uL (3.8-10.6)
--- NOTE | 2022-03-08 10:28 | P.HPIM ---
History of Present Illness Patient is a pleasant 44-year-old male with known history of coronary artery disease cardiac arrest and sudden cardiac in the past congestive heart failure with EF of around 30-35% does have a defibrillator in place came in with after a syncopal episode while his is driving him to [facility]. Patient felt nauseous before the episode. Patient denied any fever chills vomiting. Patient denied any orthopnea or shortness of breath at this time. Patient was diagnosed with Cordarone 3 days ago chest x-ray did not show any pneumonic process. Patient was diagnosed with hyperthyroidism and was started on methimazole. His hyperthyroidism was considered secondary to amiodarone induced thyroiditis which she is been using for atrial fibrillation patient is also on anticoagulation with Eliquis for atrial fibrillation. Patient blood pressure is low normal at this time. Cardiology was consulted because of the syncopal episode patient has highly elevated liver enzymes which were close to normal during his last hospitalization. REVIEW OF SYSTEMS: CONSTITUTIONAL: No fever, no malaise, no fatigue. HEENT: No recent visual problems or hearing problems. Denied any sore throat. CARDIOVASCULAR: No chest pain, orthopnea, PND, no palpitations. PULMONARY: No shortness of breath, no cough, no hemoptysis. GASTROINTESTINAL: No diarrhea, no nausea, no vomiting, no abdominal pain. NEUROLOGICAL: No headaches, no weakness, no numbness. HEMATOLOGICAL: Denies any bleeding or petechiae. GENITOURINARY: Denies any burning micturition, frequency, or urgency. MUSCULOSKELETAL/RHEUMATOLOGICAL: Denies any joint pain, swelling, or any muscle pain. ENDOCRINE: Denies any polyuria or polydipsia. The rest of the 14-point review of systems is negative. PHYSICAL EXAMINATION: GENERAL: The patient is alert and oriented x3, not in any acute distress. Well developed, well nourished. HEENT: Pupils are round and equally reacting to light. EOMI. No scleral icterus. No conjunctival pallor. Normocephalic, atraumatic. No pharyngeal erythema. No thyromegaly. CARDIOVASCULAR: S1 and S2 present. No murmurs, rubs, or gallops. PULMONARY: Chest is clear to auscultation, no wheezing or crackles. ABDOMEN: Soft, nontender, nondistended, normoactive bowel sounds. No palpable organomegaly. MUSCULOSKELETAL: No joint swelling or deformity. EXTREMITIES: No cyanosis, clubbing, or pedal edema. NEUROLOGICAL: Gross neurological examination did not reveal any focal deficits. SKIN: No rashes. Assessment and plan 1 syncope: Cardiology will evaluate the patient and his pacemaker and defibrillator will be incarcerated. There may be a competent of dehydration for which patient received IV fluids causing his EF is around 30-35% at this can you IV fluids patient doesn't have any lightheadedness at this time -atrial fibrillation probably paroxysmal presently sinus rhythm patient will be continued on beta alex and anticoagulation -Coronary artery disease -Congestive heart heart failure chronic systolic dysfunction without any acute exacerbation patient has EF of around 30 to that they were sent -Hyperthyroidism and the amiodarone induced thyroiditis; was discussed in your -Elevated liver enzymes probably hepatitis drug induced, can be related to previous amiodarone use and can be related to methimazole gastroneurology will be consulted will repeat liver enzymes tomorrow DVT prophylaxis:on Eliquis Past Medical History Past Medical History: Myocardial Infarction ([place]) Additional Past Medical History / Comment(s): cardiac arrest apr 2021, ventricular tachycardia Last Myocardial Infarction Date:: 05/01/2021 History of Any Multi-Drug Resistant Organisms: None Reported Past Surgical History: Unable to Obtain, Heart Catheterization With Stent Additional Past Surgical History / Comment(s): "stent x5 or 6 RCA june 2021" Past Anesthesia/Blood Transfusion Reactions: No Reported Reaction Date of Last Stent Placement:: 06/14/2021 Past Psychological History: Unable to Obtain Smoking Status: Never smoker Past Alcohol Use History: None Reported Past Drug Use History: None Reported Medications and Allergies Home Medications Medication Instructions Recorded Confirmed Type Apixaban [Eliquis] 5 mg PO BID 02/27/22 03/07/22 History Atorvastatin Calcium [Lipitor] 40 mg PO HS 02/27/22 03/07/22 History Clopidogrel [Plavix] 75 mg PO DAILY 02/27/22 03/07/22 History Losartan Potassium [Cozaar] 25 mg PO DAILY 02/27/22 03/07/22 History Mexiletine HCl 150 mg PO DIRECTED 02/27/22 03/07/22 History carvediloL [Coreg] 6.25 mg PO BID 02/27/22 03/07/22 History Mexiletine [Mexitil] 200 mg PO Q8HR #90 cap 02/28/22 03/07/22 Rx methIMAzole [Tapazole] 5 mg PO BID #60 tab 02/28/22 03/07/22 Rx Allergies Allergy/AdvReac Type Severity Reaction Status Date / Time Tetanus Vaccines and Toxoid Allergy Rash/Hives Verified 03/07/22 22:08 Physical Exam Vitals: Vital Signs Temp Pulse Pulse Resp BP BP Pulse Ox 03/08/22 08:50 98.7 F 95 16 112/59 95 03/08/22 04:00 98.6 F 63 16 119/60 96 03/08/22 02:00 16 03/07/22 23:10 99.0 F 65 16 118/65 97 03/07/22 19:08 99.1 F 63 16 103/65 100 Intake and Output 03/07/22 03/08/22 03/08/22 22:59 06:59 14:59 Intake Total 222 Balance 222 Intake: Oral 222 Other: Voiding Method Urinal # Voids 1 Weight 77.564 kg 78 kg Results CBC & Chem 7: 03/07/22 19:14 03/07/22 19:14 Labs: Abnormal Lab Results - Last 24 Hours (Table) 03/07/22 03/07/22 03/07/22 Range/Units 19:14 19:14 19:14 Neutrophils # 8.4 H (1.3-7.7) k/uL Lymphocytes # 0.7 L (1.0-4.8) k/uL Sodium 134 L (137-145) mmol/L Creatinine 1.51 H (0.66-1.25) mg/dL AST 1257 H (17-59) U/L ALT 1321 H (4-49) U/L Troponin I 0.081 H* (0.000-0.034) ng/mL 03/07/22 03/08/22 Range/Units 22:24 01:37 Neutrophils # (1.3-7.7) k/uL Lymphocytes # (1.0-4.8) k/uL Sodium (137-145) mmol/L Creatinine (0.66-1.25) mg/dL AST (17-59) U/L ALT (4-49) U/L Troponin I 0.087 H* 0.082 H* (0.000-0.034) ng/mL Thrombosis Risk Factor Assmnt - Choose All That Apply Any of the Below Risk Factors Present?: Yes Each Factor Represents 1 point: Age 41-60 years, Heart failure (<1month), Obesity (BMI >25) Other Risk Factors: No Other congenital or acquired thrombophilia - If yes, enter type in comment: No Thrombosis Risk Factor Assessment Total Risk Factor Score: 3 Thrombosis Risk Factor Assessment Level: Moderate Risk
[2022-03-08 10:49] LABS: Albumin 3.3 g/dL (3.5-5.0); Calcium 8.3 mg/dL (8.4-10.2); Magnesium 1.7 mg/dL (1.6-2.3); Potassium 3.9 mmol/L (3.5-5.1); Total Bilirubin 0.7 mg/dL (0.2-1.3)
--- NOTE | 2022-03-08 12:25 | P.CRDCN ---
History of Present Illness History of present illness: This is a 46 year old male with a past medical history of VT/VF cardiac arrest transferred to [facility] in cardiogenic shock with STEMI 04/2021 status post cardiac catheterization revealed a total occlusion of the LAD chronic with no viable myocardium in the distribution, RCA was chronically totally occluded and patient underwent stenting RCA at [facility], ischemic cardiomyopathy with severe LV dysfunction status post AICD implantation at [facility], LV thrombus on Eliquis, dyslipidemia. He follows with Dr. Tamez at [facility] and Dr. Aguilera. He currently follows at the heart transplant clinic. We have been consulted for syncope. Patient presents emergency department secondary to a syncopal episode. He was in the car, in the passenger seat, he states he "felt weird" Experienced "tunnel vision" and apparently lost consciousness. Denies any chest pain, shortness of breath, palpitations, lightheadedness, dizziness. Denies any warning signs. He is overall feeling well, no further episodes. He has had fevers at home and was diagnosed with COvid-19 outpatient. DIAGNOSTICS * EKG sinus rhythm HR 62, right bundle-branch block, ST abnormalities in anterior leads that are not new, prior EKG with similar findings * Echocardiogram is 02/2022 revealed an EF of 30-35%, hypokinesis anteroseptal apical akinesia * Telemetry tracings indicate sinus rhythm HR 50s-60s * Chest xray no focal consolidation, pleural effusion or pneumothorax. Cardiac silhouette size is borderline enlarged * Laboratory reviewed, troponin 0.083, sodium 134, potassium 3.9, BUN 14, serum creatinine 1.28, LFts elevated * Current home cardiac medications include amiodarone 200 mg daily, atorvastatin 40 mg daily, losartan 25 mg daily, carvedilol 6.25 mg twice a day, Plavix 75 mg daily, Eliquis 5 mg twice a day, mexiletine 150mg TID REVIEW OF SYSTEMS At the time of my exam: CONSTITUTIONAL: Denies fever or chills. CARDIOVASCULAR: Denies chest pain, shortness of breath, orthopnea, PND or palp itations. RESPIRATORY: Denies cough. GASTROINTESTINAL: Denies abdominal pain, diarrhea, constipation, nausea or vomiting. MUSCULOSKELETAL: Denies myalgias. NEUROLOGIC: Denies numbness, tingling, headacbe or weakness. ENDOCRINE: Denies fatigue, weight change, polydipsia or polyurina. GENITOURINARY: Denies burning, hematuria or urgency with micturation. HEMATOLOGIC: Denies history of anemia or bleeding. PHYSICAL EXAMINATION Vitals reviewed CONSTITUTIONAL: No apparent distress. HEENT: Head is normocephalic. No JVD. CHEST EXAMINATION: Lungs are clear to auscultation. No chest wall tenderness is noted on palpation or with deep breathing. HEART EXAMINATION: Regular rate and rhythm. S1, S2 heard. No murmurs, gallops or rub. ABDOMEN: Soft, nontender. Positive bowel sounds. EXTREMITIES: 2+ peripheral pulses, no lower extremity edema and no calf tenderness. NEUROLOGIC EXAMINATION: Patient is awake, alert and oriented x3. ASSESSMENT Syncopal Episode Elevated liver enzymes History of VT/VF cardiac arrest transferred to [facility] in cardiogenic shock with STEMI 04/2021 Coronary artery disease. with total occlusion of the LAD chronic with no viable myocardium in the distribution, RCA was chronically totally occluded s/p stenting RCA at [facility] Ischemic cardiomyopathy with severe LV dysfunction status post AICD implantation at [facility] History of LV thrombus on Eliquis Dyslipidemia PLAN Interrogate patient's device Continue home cardiac medications Continue to monitor on telemetry Further recommendations based on clinical course Nurse practitioner note has been reviewed by physician. Signing provider agrees with the documented findings, assessment, and plan of care. Past Medical History Past Medical History: Myocardial Infarction ([place]) Additional Past Medical History / Comment(s): cardiac arrest apr 2021, ventricular tachycardia Last Myocardial Infarction Date:: 05/01/2021 History of Any Multi-Drug Resistant Organisms: None Reported Past Surgical History: Unable to Obtain, Heart Catheterization With Stent Additional Past Surgical History / Comment(s): "stent x5 or 6 RCA june 2021" Past Anesthesia/Blood Transfusion Reactions: No Reported Reaction Date of Last Stent Placement:: 06/14/2021 Past Psychological History: Unable to Obtain Smoking Status: Never smoker Past Alcohol Use History: None Reported Past Drug Use History: None Reported Medications and Allergies Home Medications Medication Instructions Recorded Confirmed Type Apixaban [Eliquis] 5 mg PO BID 02/27/22 03/07/22 History Atorvastatin Calcium [Lipitor] 40 mg PO HS 02/27/22 03/07/22 History Clopidogrel [Plavix] 75 mg PO DAILY 02/27/22 03/07/22 History Losartan Potassium [Cozaar] 25 mg PO DAILY 02/27/22 03/07/22 History Mexiletine HCl 150 mg PO DIRECTED 02/27/22 03/07/22 History carvediloL [Coreg] 6.25 mg PO BID 02/27/22 03/07/22 History Mexiletine [Mexitil] 200 mg PO Q8HR #90 cap 02/28/22 03/07/22 Rx methIMAzole [Tapazole] 5 mg PO BID #60 tab 02/28/22 03/07/22 Rx Allergies Allergy/AdvReac Type Severity Reaction Status Date / Time Tetanus Vaccines and Toxoid Allergy Rash/Hives Verified 03/07/22 22:08 Physical Exam Vitals: Vital Signs Temp Pulse Pulse Resp BP BP Pulse Ox 03/08/22 04:00 98.6 F 63 16 119/60 96 03/08/22 02:00 16 03/07/22 23:10 99.0 F 65 16 118/65 97 03/07/22 19:08 99.1 F 63 16 103/65 100 Intake and Output 03/07/22 03/08/22 03/08/22 22:59 06:59 14:59 Intake Total 222 Balance 222 Intake: Oral 222 Other: # Voids 1 Weight 77.564 kg 78 kg Results 03/08/22 09:47 03/08/22 09:47 Cardiac Enzymes 03/07/22 03/07/22 03/07/22 Range/Units 19:14 19:14 22:24 AST 1257 H (17-59) U/L Troponin I 0.081 H* 0.087 H* (0.000-0.034) ng/mL 03/08/22 Range/Units 01:37 AST (17-59) U/L Troponin I 0.082 H* (0.000-0.034) ng/mL Coagulation 03/07/22 Range/Units 19:14 PT 11.7 (9.0-12.0) sec APTT 27.0 (22.0-30.0) sec CBC 03/07/22 Range/Units 19:14 WBC 9.7 (3.8-10.6) k/uL RBC 4.88 (4.30-5.90) m/uL Hgb 14.3 (13.0-17.5) gm/dL Hct 42.4 (39.0-53.0) % Plt Count 163 (150-450) k/uL Comprehensive Metabolic Panel 03/07/22 Range/Units 19:14 Sodium 134 L (137-145) mmol/L Potassium 3.9 (3.5-5.1) mmol/L Chloride 99 (98-107) mmol/L Carbon Dioxide 29 (22-30) mmol/L BUN 18 (9-20) mg/dL Creatinine 1.51 H (0.66-1.25) mg/dL Glucose 98 (74-99) mg/dL Calcium 9.0 (8.4-10.2) mg/dL AST 1257 H (17-59) U/L ALT 1321 H (4-49) U/L Alkaline Phosphatase 69 (38-126) U/L Total Protein 6.9 (6.3-8.2) g/dL Albumin 4.0 (3.5-5.0) g/dL Current Medications Generic Name Dose Route Start Last Admin Trade Name Freq PRN Reason Stop Dose Admin Acetaminophen 650 mg 03/07/22 21:39 Acetaminophen Tab 325 Mg Tab PO Q6HR PRN Mild Pain or Fever > 100.5 Apixaban 5 mg 03/08/22 09:00 Apixaban 5 Mg Tab PO BID [facility] Protocol Atorvastatin Calcium 40 mg 03/08/22 21:00 Atorvastatin 40 Mg Tab PO HS [facility] Carvedilol 6.25 mg 03/08/22 07:30 Carvedilol 6.25 Mg Tab PO BID-W/MEALS [facility] Clopidogrel Bisulfate 75 mg 03/08/22 09:00 Clopidogrel 75 Mg Tab PO DAILY [facility] Sodium Chloride 1,000 mls @ 75 mls/hr 03/07/22 21:45 03/07/22 22:12 Saline 0.9% IV 75 mls/hr .[id number] KRISHNA Administration Losartan Potassium 25 mg 03/08/22 09:00 Losartan 25 Mg Tab PO DAILY KRISHNA Methimazole 5 mg 03/08/22 09:00 Methimazole 5 Mg Tab PO BID [facility] Mexiletine HCl 200 mg 03/08/22 06:30 03/08/22 06:20 Mexiletine 200 Mg Cap PO 200 mg Q8H KRISHNA Administration Naloxone HCl 0.2 mg 03/07/22 21:39 Naloxone 0.4 Mg/Ml 1 Ml Vial IV Q2M PRN Opioid Reversal Intake and Output 03/07/22 03/08/22 03/08/22 22:59 06:59 14:59 Intake Total 222 Balance 222 Intake: Oral 222 Other: # Voids 1 Weight 77.564 kg 78 kg 03/07/22 19:14 03/07/22 19:14
--- NOTE | 2022-03-08 14:20 | P.CONS ---
History of Present Illness - Reason for Consult Consult date: 03/08/22 Elevated LFTs Requesting physician: Dona Subramanian - Chief Complaint Syncope/collapse - History of Present Illness There is a pleasant 46-year-old male who presented to the emergency department after he states he passed out. He was recently diagnosed with Covid 19 on Saturday of this past week. He went to [facility] in [place] because he had 102 fever and tested positive for Kovic. Yesterday he did undergo monoclonal antibodies and while he was being driven by his he had a brief loss of consciousness. Patient has past medical history of coronary artery disease, cardiac arrest, stenting, ischemic cardiomyopathy, hyperthyroidism and currently has defibrillator. As part of his workup in the emergency room his blood work revealed elevated AST and ALT. Gastroenterology was consulted for the above. Patient denies any previous history of liver disease, no history of alcoholism, or hepatitis. Patient states he was given monoclonal antibodies no new antibiotics. He was started on Tapazole one week ago for hyperthyroidism. Patient is also currently on Lipitor. He is denying any abdominal pain, nausea or vomiting. Denies any shortness of breath or chest pain. No further syncopal episodes. WBC 5.8 hemoglobin 12.6 hematocrit 38 platelet count 121,000 INR 1.1 sodium 134 potassium 3.9 BUN 14 creatinine 1.8 glucose 85 total bilirubin 0.7 AST 1763 ALT 2020 alkaline phosphatase 68 troponins 0.082 Review of Systems REVIEW OF SYSTEMS: CARDIOPULMONARY: No chest pain or shortness of breath. Gastrointestinal: No abdominal pain. No nausea or vomiting. No hematemesis, coffee-ground emesis. No rectal bleeding, or melena. GENITOURINARY: No dysuria or hematuria. MUSCULOSKELETAL: Reports normal range of motion. SKIN: No rashes. No jaundice. ENDOCRINE: No chills, fevers. No excessive weight gain or loss. No polydipsia or polyuria. PSYCHIATRIC: Unremarkable. NEUROLOGY: No change in mental status. Denies dizziness, headache. ENT: Vision unremarkable. CONSTITUTIONAL: No recent weight loss. No fever, chills, night sweats. Past Medical History Past Medical History: Myocardial Infarction ([place]) Additional Past Medical History / Comment(s): cardiac arrest apr 2021, ventricular tachycardia Last Myocardial Infarction Date:: 05/01/2021 History of Any Multi-Drug Resistant Organisms: None Reported Past Surgical History: Unable to Obtain, Heart Catheterization With Stent Additional Past Surgical History / Comment(s): "stent x5 or 6 RCA june 2021" Past Anesthesia/Blood Transfusion Reactions: No Reported Reaction Date of Last Stent Placement:: 06/14/2021 Past Psychological History: Unable to Obtain Smoking Status: Never smoker Past Alcohol Use History: None Reported Past Drug Use History: None Reported Medications and Allergies Home Medications Medication Instructions Recorded Confirmed Type Apixaban [Eliquis] 5 mg PO BID 02/27/22 03/07/22 History Atorvastatin Calcium [Lipitor] 40 mg PO HS 02/27/22 03/07/22 History Clopidogrel [Plavix] 75 mg PO DAILY 02/27/22 03/07/22 History Losartan Potassium [Cozaar] 25 mg PO DAILY 02/27/22 03/07/22 History Mexiletine HCl 150 mg PO DIRECTED 02/27/22 03/07/22 History carvediloL [Coreg] 6.25 mg PO BID 02/27/22 03/07/22 History Mexiletine [Mexitil] 200 mg PO Q8HR #90 cap 02/28/22 03/07/22 Rx methIMAzole [Tapazole] 5 mg PO BID #60 tab 02/28/22 03/07/22 Rx Allergies Allergy/AdvReac Type Severity Reaction Status Date / Time Tetanus Vaccines and Toxoid Allergy Rash/Hives Verified 03/07/22 22:08 Physical Exam Vitals: Vital Signs Temp Pulse Pulse Resp BP BP Pulse Ox 03/08/22 11:38 99.2 F 58 L 14 101/53 95 03/08/22 08:50 98.7 F 95 16 112/59 95 03/08/22 04:00 98.6 F 63 16 119/60 96 03/08/22 02:00 16 03/07/22 23:10 99.0 F 65 16 118/65 97 03/07/22 19:08 99.1 F 63 16 103/65 100 Intake and Output 03/07/22 03/08/22 03/08/22 22:59 06:59 14:59 Intake Total 222 Balance 222 Intake: Oral 222 Other: Voiding Method Urinal # Voids 1 Weight 77.564 kg 78 kg General appearance: The patient is alert, oriented, appears in no acute distress. HET: Head is normocephalic and atraumatic. Conjunctiva pink. Sclera anicteric. Neck: Supple without lymphadenopathy. Trachea midline. Heart: S1 S2. Regular rate and rhythm. Lungs: Clear to auscultation. Abdomen: Soft, nontender, nondistended with bowel sounds. No guarding or rigidity. Skin: No rashes. No jaundice. Extremities: Normal skin color and turgor. No pedal edema. Neurological: No focal deficits. Alert and oriented x3. Results CBC & Chem 7: 03/08/22 09:47 03/08/22 09:47 Labs: Abnormal Lab Results - Last 24 Hours (Table) 03/07/22 03/07/22 03/07/22 Range/Units 19:14 19:14 19:14 Hgb (13.0-17.5) gm/dL Hct (39.0-53.0) % Plt Count (150-450) k/uL Neutrophils # 8.4 H (1.3-7.7) k/uL Lymphocytes # 0.7 L (1.0-4.8) k/uL Sodium 134 L (137-145) mmol/L Creatinine 1.51 H (0.66-1.25) mg/dL Calcium (8.4-10.2) mg/dL AST 1257 H (17-59) U/L ALT 1321 H (4-49) U/L Troponin I 0.081 H* (0.000-0.034) ng/mL Total Protein (6.3-8.2) g/dL Albumin (3.5-5.0) g/dL 03/07/22 03/08/22 03/08/22 Range/Units 22:24 01:37 09:47 Hgb 12.6 L (13.0-17.5) gm/dL Hct 38.4 L (39.0-53.0) % Plt Count 121 L (150-450) k/uL Neutrophils # (1.3-7.7) k/uL Lymphocytes # (1.0-4.8) k/uL Sodium (137-145) mmol/L Creatinine (0.66-1.25) mg/dL Calcium (8.4-10.2) mg/dL AST (17-59) U/L ALT (4-49) U/L Troponin I 0.087 H* 0.082 H* (0.000-0.034) ng/mL Total Protein (6.3-8.2) g/dL Albumin (3.5-5.0) g/dL 03/08/22 Range/Units 09:47 Hgb (13.0-17.5) gm/dL Hct (39.0-53.0) % Plt Count (150-450) k/uL Neutrophils # (1.3-7.7) k/uL Lymphocytes # (1.0-4.8) k/uL Sodium 134 L (137-145) mmol/L Creatinine 1.28 H (0.66-1.25) mg/dL Calcium 8.3 L (8.4-10.2) mg/dL AST 1763 H (17-59) U/L ALT 2021 H (4-49) U/L Troponin I (0.000-0.034) ng/mL Total Protein 6.0 L (6.3-8.2) g/dL Albumin 3.3 L (3.5-5.0) g/dL Assessment and Plan (1) Transaminitis Narrative/Plan: 46-year-old male with no prior history of liver disease presented to the emergency department after a syncopal episode. Patient recently diagnosed with COVID-19 infection and received monoclonal antibodies yesterday. Patient has significant cardiac history. Patient had been seen for [place] for elevated temp of 102 diagnoses with COVID-19 on Saturday. He had a syncopal episode of who is driving in the car with his yesterday and came for further evaluation and was noted to have significantly elevated LFTs. Again patient denies any previous history of liver disease, no history of hepatitis, or history of alcohol abuse. Patient did state that he was recently started on Tapazole for his thyroid approximately 1 week ago. Patient also currently on Lipitor. Possible etiology for elevated LFTs include medication induced will discontinue Tapazole and Lipitor. Also need to consider possible underlying COVID-19 infection. Will order ultrasound of the liver as well as acute hepatitis panel. Current Visit: Yes Status: Acute Code(s): R74.01 - ELEVATION OF LEVELS OF LIVER TRANSAMINASE LEVELS SNOMED Code(s): 955685978 (2) COVID-19 Current Visit: Yes Status: Acute Code(s): U07.1 - COVID-19 SNOMED Code(s): 473393437 (3) Elevated troponin Current Visit: Yes Status: Acute Code(s): R77.8 - OTHER SPECIFIED ABNORMALITIES OF PLASMA PROTEINS SNOMED Code(s): 919437893 (4) Syncope Current Visit: Yes Status: Acute Code(s): R55 - SYNCOPE AND COLLAPSE SNOMED Code(s): 900194591 Plan: 1. Continue symptomatic and supportive care 2. Discontinue Tapazole and Lipitor 3. Liver ultrasound ordered 4. Acute hepatitis panel ordered 5. Daily CMP 6. Avoid hepatotoxic medications 7. Further recommendations forthcoming Thank you for this consultation, we'll continue to follow. Dr. Alicia Padilla I agree with the dictator's note, documented as a scribe by Neisha SANDOVAL.
--- NOTE | 2022-03-08 16:52 | US ---
EXAMINATION TYPE: US liver DATE OF EXAM: 03/08/2022 COMPARISON: NONE CLINICAL HISTORY: elevated LFTs. Elevated LFTs. Hx kidney issues. TECHNIQUE: Multiple sonographic images of the right upper quadrant are obtained. FINDINGS: EXAM MEASUREMENTS: Liver Length: 14.7 cm Gallbladder Wall: 0.20 cm CBD: 0.29 cm Right Kidney: 10.8 x 5.7 x 5.1 cm CARPET CUTTER NOTES: Limited due to gas. Pancreas: Limited due to gas. Liver: Appears slightly coarse in echotexture. Gallbladder: Limited, appears partially contracted. However, there appears to be a hyperechoic area possibly within the gallbladder wall that shows twinkle artifact: 0.3 x 0.4 x 0.3 cm. Evidence for sonographic Santos's sign: No CBD: Portions seen appear wnl Right Kidney: No hydronephrosis or masses seen Visualized pancreas is heterogeneous. Significant portions obscured by overlying bowel gas. Visualize d liver is heterogeneously hyperechoic. No surrounding ascites. No biliary dilatation. Gallbladder is contracted without visualized shadowing mobile gallstones. Gallbladder wall thickness is upper limit s of normal. No surrounding fluid. No right-sided hydronephrosis. IMPRESSION: Heterogeneous hyperechoic appearance of liver consistent with diffuse fatty infiltration and/or underlying hepatocellular disease.
[2022-03-08 19:18] LABS: Hepatitis C IgG Antibody Nonreactive (Nonreactive)
[2022-03-08 19:19] LABS: Hepatitis A Antibody IgM Nonreactive (Nonreactive); Hepatitis B Core IgM Nonreactive (Nonreactive); Hepatitis B Surface Antigen Nonreactive (Nonreactive)
[2022-03-08] MEDS: SODIUM CHLORIDE 0.9% 1,000 ML IV SCH (20:43)
[2022-03-08] MEDS ORDERED: ATORVASTATIN 40 MG TAB PO SCH (21:00)
[2022-03-09] MEDS: SODIUM CHLORIDE 0.9% 1,000 ML IV SCH (02:02)
[2022-03-09 03:47] VITALS: RESP 16
[2022-03-09] MEDS: MEXILETINE 200 MG CAP PO SCH ×2 (06:21→14:55)
[2022-03-09] MEDS: APIXABAN 5 MG TAB PO SCH (08:25)
[2022-03-09] MEDS: CLOPIDOGREL 75 MG TAB PO SCH (08:25)
[2022-03-09] MEDS: LOSARTAN 25 MG TAB PO SCH (08:25)
[2022-03-09] MEDS: carvediloL 6.25 MG TAB PO SCH (08:25)
[2022-03-09 10:54] LABS: HCT 41.5 % (39.0-53.0); HGB 13.3 gm/dL (13.0-17.5); MCH 28.2 pg (25.0-35.0); MCHC 32.1 g/dL (31.0-37.0); MCV 88.1 fL (80.0-100.0); Mean Platelet Volume 7.8; Platelet Count 144 k/uL (150-450); RBC 4.71 m/uL (4.30-5.90); RDW 12.6 % (11.5-15.5); WBC 5.1 k/uL (3.8-10.6)
[2022-03-09 11:09] LABS: African American GFR (CKD) 79 (>60 ml/min/1.73 sqM); Albumin 3.5 g/dL (3.5-5.0); Alkaline Phosphatase 70 U/L (38-126); Anion Gap 3 mmol/L; Blood Urea Nitrogen 16 mg/dL (9-20); Calcium 8.6 mg/dL (8.4-10.2); Carbon Dioxide 30 mmol/L (22-30); Chloride 102 mmol/L (98-107); Glucose 108 mg/dL (74-99); Non-African American GFR(CKD) 68 (>60 ml/min/1.73 sqM); Potassium 4.1 mmol/L (3.5-5.1); Sodium 135 mmol/L (137-145); Total Bilirubin 0.5 mg/dL (0.2-1.3); Total Protein 6.3 g/dL (6.3-8.2)
--- NOTE | 2022-03-09 11:09 | P.PN ---
Subjective Progress Note Date: 03/09/22 Principal diagnosis: Transaminitis There is a pleasant 46-year-old male who presented to the emergency department after he states he passed out. He was recently diagnosed with Covid 19 on Saturday of this past week. He went to [facility] in [place] because he had 102 fever and tested positive for Kovic. Yesterday he did undergo monoclonal antibodies and while he was being driven by his he had a brief loss of consciousness. Patient has past medical history of coronary artery disease, cardiac arrest, stenting, ischemic cardiomyopathy, hyperthyroidism and currently has defibrillator. As part of his workup in the emergency room his blood work revealed elevated AST and ALT. Gastroenterology was consulted for the above. Patient denies any previous history of liver disease, no history of alcoholism, or hepatitis. Patient states he was given monoclonal antibodies no new antibiotics. He was started on Tapazole one week ago for hyperthyroidism. Patient is also currently on Lipitor. 03/09/2022: The patient seen and examined today as a follow-up for elevated AST/ALT. Patient states he had a good night. He is not complaining of any abdominal pain, nausea, or vomiting. He denies any shortness of breath or chest pain. Denies dizziness or any syncopal episodes. Awaiting labs from today. Acute hepatitis panel nonreactive. Liver ultrasound shows heterogeneous hyperechoic appearance of liver consistent with diffuse fatty liver and/or underlying hepatocellular disease. Objective - Vital Signs Vital signs: Vital Signs Temp 97.8 F 03/09/22 08:00 Pulse 49 L 03/09/22 08:00 Resp 16 03/09/22 08:00 BP 100/54 03/09/22 08:00 Pulse Ox 100 03/09/22 08:00 FiO2 Intake & Output 03/08/22 03/09/22 03/09/22 18:59 06:59 18:59 Intake Total 120 Output Total 1 Balance 120 -1 Intake: Oral 120 Output: Urine 1 Other: Voiding Method Urinal Toilet Urinal # Voids 1 2 - Exam General appearance: The patient is alert, oriented, appears in no acute distress. HET: Head is normocephalic and atraumatic. Conjunctiva pink. Sclera anicteric. Neck: Supple without lymphadenopathy. Abdomen: Soft, nontender, nondistended with bowel sounds. No guarding or rigidity. Extremities: Normal skin color and turgor. No pedal edema Skin: No rashes, no jaundice Neurological: No focal deficits. Alert and oriented -3. - Labs CBC & Chem 7: 03/09/22 10:24 03/08/22 09:47 Labs: Abnormal Lab Results - Last 24 Hours (Table) 03/08/22 03/09/22 Range/Units 09:47 10:24 Plt Count 144 L (150-450) k/uL AST 1763 H (17-59) U/L Assessment and Plan (1) Transaminitis Narrative/Plan: 46-year-old male with no prior history of liver disease presented to the emergency department after a syncopal episode. Patient recently diagnosed with COVID-19 infection and received monoclonal antibodies yesterday. Patient has significant cardiac history. Patient had been seen for [place] for elevated temp of 102 diagnoses with COVID-19 on Saturday. He had a syncopal episode of who is driving in the car with his yesterday and came for fur ther evaluation and was noted to have significantly elevated LFTs. Again patient denies any previous history of liver disease, no history of hepatitis, or history of alcohol abuse. Patient did state that he was recently started on Tapazole for his thyroid approximately 1 week ago. Patient also currently on Lipitor. Possible etiology for elevated LFTs include medication induced will discontinue Tapazole and Lipitor. Also need to consider possible underlying COVID-19 infection. Will order ultrasound of the liver as well as acute hepatitis panel. Ultrasound showing diffuse fatty liver and/or underlying hepatocellular disease. Patient very well may have underlying hepatocellular disease compounded by medication induced hepatitis. Recommend continuing to trend LFTs. Patient will need close follow-up. Current Visit: Yes Status: Acute Code(s): R74.01 - ELEVATION OF LEVELS OF LIVER TRANSAMINASE LEVELS SNOMED Code(s): 879423454 (2) COVID-19 Current Visit: Yes Status: Acute Code(s): U07.1 - COVID-19 SNOMED Code(s): 857078630 (3) Elevated troponin Current Visit: Yes Status: Acute Code(s): R77.8 - OTHER SPECIFIED ABNORMALITIES OF PLASMA PROTEINS SNOMED Code(s): 630391779 (4) Syncope Current Visit: Yes Status: Acute Code(s): R55 - SYNCOPE AND COLLAPSE SNOMED Code(s): 032603333 (5) Coronary artery disease Current Visit: Yes Status: Acute Code(s): I25.10 - ATHSCL HEART DISEASE OF [place] CORONARY ARTERY W/O ANG PCTRS SNOMED Code(s): 05761655 Plan: 1. Continue symptomatic and supportive care 2. Discontinue Tapazole and Lipitor 3. Liver ultrasound ordered and reviewed showing a few speech Nasrin liver/and/or hepatocellular disease 4. Acute hepatitis panel ordered, nonreactive 5. Daily CMP until LFTs are trending down 6. Avoid hepatotoxic medications 7. Await LFTs from today. Patient will need close follow-up with gastroenterology outpatient for trending of liver enzymes. Thank you for this consultation. Thank you for allowing us to participate in the care of the patient, the GI service will sign off, gastroenterology will not be available at the hospital this weekend and through next week. If further evaluation by gastroenterology is required the patient will need transfer as per the primary team's discretion. Dr. Alicia Padilla I agree with the dictator's note, documented as a scribe by Neisha Cooper.
[2022-03-09 11:24] LABS: T4, Free (Free Thyroxine) 2.77 ng/dL (0.78-2.19)
[2022-03-09 11:26] LABS: ALT 1707 U/L (4-49); AST 923 U/L (17-59)
[2022-03-09 12:03] VITALS: BP 90/54; PULSE 53; TEMP 98.5
--- NOTE | 2022-03-09 14:04 | P.PN ---
Subjective This is a 46 year old male with a past medical history of VT/VF cardiac arrest transferred to [facility] in cardiogenic shock with STEMI 04/2021 status post cardiac catheterization revealed a total occlusion of the LAD chronic with no viable myocardium in the distribution, RCA was chronically totally occluded and patient underwent stenting RCA at [facility], ischemic cardiomyopathy with severe LV dysfunction status post AICD implantation at [facility], LV thrombus on Eliquis, dyslipidemia. He follows with Dr. Tamez at [facility] and Dr. Aguilera. He currently follows at the heart transplant clinic. We have been consulted for syncope. Patient presents emergency department secondary to a syncopal episode. He was in the car, in the passenger seat, he states he "felt weird" Experienced "tunnel vision" and apparently lost consciousness. Denies any chest pain, shortness of breath, palpitations, lightheadedness, dizziness. Denies any warning signs. He is overall feeling well, no further episodes. He has had fevers at home and was diagnosed with COvid-19 outpatient. DIAGNOSTICS * EKG sinus rhythm HR 62, right bundle-branch block, ST abnormalities in anterior leads that are not new, prior EKG with similar findings * Echocardiogram is 02/2022 revealed an EF of 30-35%, hypokinesis anteroseptal apical akinesia * Telemetry tracings indicate sinus rhythm HR 50s-60s, no ectopy noted. * Chest xray no focal consolidation, pleural effusion or pneumothorax. Cardiac silhouette size is borderline enlarged * Laboratory reviewed, troponin 0.083, sodium 134, potassium 3.9, BUN 14, serum creatinine 1.28, LFts elevated * Current home cardiac medications include amiodarone 200 mg daily, atorvastatin 40 mg daily, losartan 25 mg daily, carvedilol 6.25 mg twice a day, Plavix 75 mg daily, Eliquis 5 mg twice a day, mexiletine 150mg TID 03/09/2022 Patient seen and examined at bedside, no acute distress. He is feeling well. No further episodes of syncope or near syncope. VSS. LFTs continue to be elevated. Telemetry reviewed, patient to with ectopy noted. He is maintaining sinus mechanism, no arrythmia noted. Device interrogated with no concerns. No evidence of VT/VF, no shocks, no arrythmia. PHYSICAL EXAMINATION Vitals reviewed CONSTITUTIONAL: No apparent distress. HEENT: Head is normocephalic. No JVD. CHEST EXAMINATION: Lungs are clear to auscultation. No chest wall tenderness is noted on palpation or with deep breathing. HEART EXAMINATION: Regular rate and rhythm. S1, S2 heard. No murmurs, gallops or rub. ABDOMEN: Soft, nontender. Positive bowel sounds. EXTREMITIES: 2+ peripheral pulses, no lower extremity edema and no calf tenderness. NEUROLOGIC EXAMINATION: Patient is awake, alert and oriented x3. ASSESSMENT Syncopal Episode, possibly vasovagal patient did have some prodromal symptoms unable to be specific, rule out cardiac cause Elevated liver enzymes History of VT/VF cardiac arrest transferred to [facility] in cardiogenic shock with STEMI 04/2021 Coronary artery disease. with total occlusion of the LAD chronic with no viable myocardium in the distribution, RCA was chronically totally occluded s/p stenting RCA at [facility] Ischemic cardiomyopathy with severe LV dysfunction status post AICD implantation at [facility] History of LV thrombus on Eliquis Dyslipidemia PLAN Patient's device interrogated with no cardiac events reported. No evidence of VT/VF, no shocks, no arrythmia. Device functioning normally. Continue home cardiac medications From a cardiology perspective no further inpatient work up at this time. Recommend outpatient follow with Dr. Aguilera and transplant clinic . Nurse practitioner note has been reviewed by physician. Signing provider agrees with the documented findings, assessment, and plan of care. Objective - Vital Signs Vital signs: Vital Signs Temp 98.5 F 03/09/22 12:00 Pulse 53 L 03/09/22 12:00 Resp 16 03/09/22 12:00 BP 90/54 03/09/22 12:00 Pulse Ox 99 03/09/22 12:00 FiO2 Intake & Output 03/08/22 03/09/22 03/09/22 18:59 06:59 18:59 Intake Total 120 Output Total 1 Balance 120 -1 Intake: Oral 120 Output: Urine 1 Other: Voiding Method Urinal Toilet Urinal # Voids 1 2 - Labs CBC & Chem 7: 03/09/22 10:24 03/09/22 10:24 Labs: Abnormal Lab Results - Last 24 Hours (Table) 03/09/22 03/09/22 Range/Units 10:24 10:24 Plt Count 144 L (150-450) k/uL Sodium 135 L (137-145) mmol/L Creatinine 1.26 H (0.66-1.25) mg/dL Glucose 108 H (74-99) mg/dL AST 923 H (17-59) U/L ALT 1707 H (4-49) U/L TSH <0.015 L (0.465-4.680) mIU/L Free T4 2.77 H (0.78-2.19) ng/dL
--- NOTE | 2022-03-11 16:06 | P.DS ---
Providers Date of admission: 03/07/22 21:39 Attending physician: Pawan Contreras Consults: 03/07/22 21:39 Consult Physician Routine Consulting Provider: Vannesa Villalba Consult Reason/Comments: Syncope, COVID, trop elevated Do you want consulting provider notified?: Yes 03/08/22 10:21 Consult Physician Routine Consulting Provider: Velia Padilla Consult Reason/Comments: Elevated liver enzymes Do you want consulting provider notified?: Yes Primary care physician: Stated None Hospital Course: Diagnosis Syncope possibly from dehydration. 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 Cleared by GI services and will follow up in the office. Repeat CMP on saturday, patient is given script. Discontinue lipitor and methimazole on discharge. Discussed with Dr. Smith and patient will discharge on propylthiouracil 100 mg PO twice a day. Follow up with endocrinology outpatient. Hospital Course This is a 46 year old male with medical history significant for myocardial infarction wtih cardiac arrest in Apr post PCI with multiple stents, ventricular tachycardia, with known EF of around 30%, patient has a defi brillator. Also hisotry of left ventricular thrombus and is on eliquis therapy. Patient is a never smoker. Presents to the with brief loss of consciousness. Patient is positive for COVID and was driving to hospital for monoclonal antibodies when he had a syncopal episode. He did not feel his defibrillator go off. He has no chest pain, no shortness of breath on presentation. Chest xray is negative. Labs show troponin elevation at 0.081, 0.087, 0.082, elevated liver enzymes AST 1257, ALT 1321, creatinine of 1.51, sodium 134. Patient admitted with consultations placed to cardiology and GI services. He was recently taken off amiodarone outpatient and was started on methimazole for thyroid. He was taken off lipitor and methimazole and also received hydration which his creatinine and liver enzymes did improve. He also presented with low grade temp 99.1, and blood pressure 103/65. Suspect syncopal episodes probably from dehydration. Patient had liver ultrasound done which shows diffuse fatty infiltration and/or underlying hepatocellular disease, hepatitis panel negative. Defibrillator was interrogated and no shock, Vtach, Vfib or other arrythmia noted, reviewed by cardiology. Recommended to follow up with his orthophotography technician Dr HUMPHREY Aguilera as well as transplant clinic post discharge. 03/09/22 Patient evaluated today sitting up in chair. Feeling well, no acute events overnight. He denies chest pain, denies shortness of breath. No abdominal pain, tolerating diet. Lungs are clear, S1 S2 auscultated. No epidsodes of syncope, no dizziness or lightheadedness while hospitalized. Labs today showing white count 5.1, hgb 13.3, sodium 135, potassium 4.1, BUN 16, creatinine 1.26, AST 923, ALT 1707, TSH <0.015, free T4 2.77. Afebrile heart rate 53, blood pressure 100/54, 99% room air. He is cleared by cardiology recommended to follow up in the office. GI services will see patient in the office, repeat CMP on saturday. Please see medication reconciliation for a list of current medications. Thank you for allowing us to participate in the care of this patient. Total time taken in discharge planning greater than 35 minutes. The impression and plan of care has been dictated by Dolores Gonzáles, Nurse Practitioner as directed. Dr. Marilynn MD I have performed a history and physical examination and medical decision making of this patient, discussed the same with the dictator, and agree with the dictators assessment and plan as written, documented as a scribe. Based on total visit time, I have performed more than 50% of this visit. Patient Condition at Discharge: Stable Plan - Discharge Summary Discharge Rx Participant: Yes New Discharge Prescriptions: New propylthiouraciL [Propylthiouracil] 100 mg PO BID #60 tab Continue Losartan Potassium [Cozaar] 25 mg PO DAILY Clopidogrel [Plavix] 75 mg PO DAILY Mexiletine HCl 150 mg PO DIRECTED carvediloL [Coreg] 6.25 mg PO BID Apixaban [Eliquis] 5 mg PO BID Mexiletine [Mexitil] 200 mg PO Q8HR #90 cap Discontinued methIMAzole [Tapazole] 5 mg PO BID #60 tab Atorvastatin Calcium [Lipitor] 40 mg PO HS Discharge Medication List Apixaban [Eliquis] 5 mg PO BID 02/27/22 [History] Clopidogrel [Plavix] 75 mg PO DAILY 02/27/22 [History] Losartan Potassium [Cozaar] 25 mg PO DAILY 02/27/22 [History] Mexiletine HCl 150 mg PO DIRECTED 02/27/22 [History] carvediloL [Coreg] 6.25 mg PO BID 02/27/22 [History] Mexiletine [Mexitil] 200 mg PO Q8HR #90 cap 02/28/22 [Rx] propylthiouraciL [Propylthiouracil] 100 mg PO BID #60 tab 03/09/22 [Rx] Follow up Appointment(s)/Referral(s): Neida Aguilera MD [STAFF PHYSICIAN] - 1 Week (pt to call and make an appointment) Rudolph Smith MD [REFERRING] - 1 Week (pt to call and make an appointment) Velia Padilla MD [STAFF PHYSICIAN] - 1 Week (Office is closed please call during normal business hours Dr Gabriella Padilla would like to see you next week ) None,Stated [Primary Care Provider] - 1-2 days Ambulatory/Diagnostic Orders: Comprehensive Metabolic Panel [LAB.AMB] Time Frame: 03/12/22, Location: None Selected Patient Instructions/Handouts: Coronary Artery Disease (DC) Activity/Diet/Wound Care/Special Instructions: Discontinue lipitor and tapazole Discharge on propylthiouracil 100 mg PO BID Follow up at Dr. Alicia Orozco office with GI services next week Follow up with Dr. Zoltan Smith with endocrinology next week Repeat labs on saturday, scripts have been provided Follow up with Dr HUMPHREY Aguilera, and Dr. Tamez at [facility] Follow up with primary care provider and notify that lipitor and tapazole have been discontinued Discharge Disposition: HOME SELF-CARE
== END 2022-03-09 16:46 | disposition home or self-care (01) ==
LOC: EC 18:21 → INTOOBSV 21:39 → 3SCARD 21:39 → UNDODISIN 03-09 16:46
PROVIDERS: ADMIT Hospitalist; ATTEND Hospitalist
PROC: XW033H6 Introduction of Other New Technology Monoclonal Antibody into Peripheral Vein, Percutaneous Approach, New Technology Group 6 (ICD-10-PCS; principal; 2022-03-07)
DX: R55 Syncope and collapse (principal); U07.1 COVID-19; I50.22 Chronic systolic (congestive) heart failure; I25.5 Ischemic cardiomyopathy; E06.4 Drug-induced thyroiditis; T46.2X5A Adverse effect of other antidysrhythmic drugs, initial encounter; I25.10 Atherosclerotic heart disease of native coronary artery without angina pectoris; I25.82 Chronic total occlusion of coronary artery; I48.91 Unspecified atrial fibrillation; I45.10 Unspecified right bundle-branch block; I51.3 Intracardiac thrombosis, not elsewhere classified; I25.2 Old myocardial infarction; E78.5 Hyperlipidemia, unspecified; E05.90 Thyrotoxicosis, unspecified without thyrotoxic crisis or storm; R74.01 Elevation of levels of liver transaminase levels; R79.89 Other specified abnormal findings of blood chemistry; E66.9 Obesity, unspecified; Z68.27 Body mass index [BMI] 27.0-27.9, adult; Z79.01 Long term (current) use of anticoagulants; Z79.02 Long term (current) use of antithrombotics/antiplatelets; Z79.899 Other long term (current) drug therapy; Z88.7 Allergy status to serum and vaccine; Z86.74 Personal history of sudden cardiac arrest; Z95.5 Presence of coronary angioplasty implant and graft; Z95.810 Presence of automatic (implantable) cardiac defibrillator
CPT/HCPCS: 99285; 36415; 93005; 84439; 83880; 80053 ×3; 80074; 83735; 84436; 84443; 84484 ×2; 85025 ×2; 85027; 85610; 85730; 71046; 76705; G0378 ×3; M0222; Q0222

== ENCOUNTER → 2022-03-12 | Outpatient (CLI) | payer BC ==
[2022-03-12 15:16] LABS: African American GFR (CKD) 56.8 (60.0-200.0); Albumin 3.9 g/dL (3.8-4.9); Albumin/Globulin Ratio 1.22 (1.60-3.17); Anion Gap 9.7 mmol/L (10.00-18.00); BUN/Creat Ratio 11.45 Ratio (12.00-20.00); Calcium 9.4 mg/dL (8.7-10.3); Carbon Dioxide 25.7 mmol/L (20.0-27.5); Globulin 3.2 g/dL (1.6-3.3); Potassium 4.7 mmol/L (3.5-5.5); Total Bilirubin 0.5 mg/dL (0.30-1.20); Total Protein 7.1 g/dL (6.2-8.2)
== END | disposition home or self-care (01) ==
LOC: LABWHC1 09:11
PROVIDERS: ATTEND Internal Medicine Gastroenterology
DX: E87.1 Hypo-osmolality and hyponatremia (principal); R74.01 Elevation of levels of liver transaminase levels
CPT/HCPCS: 36415; 80053

== ENCOUNTER → 2022-03-15 | Outpatient (CLI) | payer BC ==
[2022-03-15 10:41] LABS: African American GFR (CKD) 59.4 (60.0-200.0); Anion Gap 5.4 mmol/L (10.00-18.00); BUN/Creat Ratio 10.69 Ratio (12.00-20.00); Blood Urea Nitrogen 17.1 mg/dL (9.0-27.0); Calcium 9.1 mg/dL (8.7-10.3); Carbon Dioxide 30.6 mmol/L (20.0-27.5); Non-African American GFR(CKD) 51.3 (60.0-200.0); Potassium 4.4 mmol/L (3.5-5.5)
== END | disposition home or self-care (01) ==
LOC: LABWHC1 07:57
PROVIDERS: ATTEND Internal Medicine Interventional Cardiology
DX: N18.9 Chronic kidney disease, unspecified (principal)
CPT/HCPCS: 36415; 80048

== ENCOUNTER → 2022-04-27 | Outpatient (CLI) | payer BC ==
[2022-04-27 14:35] LABS: Basophils # (A) 0.03 X 10*3/uL (0.00-0.10); Basophils % (A) 0.4 %; Eosinophils # (A) 0.11 X 10*3/uL (0.04-0.35); Eosinophils % (A) 1.6 %; HCT 38.4 % (39.6-50.0); HGB 12.2 g/dL (13.0-17.0); Immature Grans, Automated 0.4 %; Lymphocytes # (A) 1.61 X 10*3/uL (0.90-5.00); Lymphocytes % (A) 23.8 %; MCH 28.1 pg (27.0-32.0); MCHC 31.8 g/dL (32.0-37.0); MCV 88.5 fL (80.0-97.0); Mean Platelet Volume 10.5 fL (9.5-12.2); Monocytes # (A) 0.71 X 10*3/uL (0.20-1.00); Monocytes % (A) 10.5 %; NRBC Per 100 WBC 0 /100 WBCS (0.0-0.0); Neutrophils # (A) 4.28 X 10*3/uL (1.80-7.70); Neutrophils % (A) 63.3 %; Platelet Count 226 X 10*3/uL (140-440); RBC 4.34 X 10*6/uL (4.40-5.60); RDW 12.8 % (11.5-14.5); WBC 6.77 X 10*3/uL (4.50-10.00)
[2022-04-27 15:10] LABS: African American GFR (CKD) 64.2 (60.0-200.0); Albumin/Globulin Ratio 1.54 (1.60-3.17); Anion Gap 9.5 mmol/L (10.00-18.00); BUN/Creat Ratio 12.2 Ratio (12.00-20.00); Blood Urea Nitrogen 18.3 mg/dL (9.0-27.0); Calcium 9.2 mg/dL (8.7-10.3); Carbon Dioxide 28.5 mmol/L (20.0-27.5); Globulin 2.6 g/dL (1.6-3.3); Non-African American GFR(CKD) 55.4 (60.0-200.0); Potassium 4.8 mmol/L (3.5-5.5); Total Bilirubin 0.3 mg/dL (0.30-1.20); Total Protein 6.6 g/dL (6.2-8.2)
== END | disposition home or self-care (01) ==
LOC: LABWHC1 08:30
PROVIDERS: ATTEND Internal Medicine Gastroenterology
DX: B17.9 Acute viral hepatitis, unspecified (principal)
CPT/HCPCS: 36415; 80053; 85025

== ENCOUNTER 2022-05-16 01:41 | Inpatient (IN) | payer BC ==
[2022-05-16] MEDS ORDERED: SODIUM CHLORIDE 0.9% 1,000 ML IV STA ×2 (02:04)
--- NOTE | 2022-05-16 02:04 | ED ---
Arrhythmia/Palpitations HPI - General Chief Complaint: Arrhythmia/Palpitations Stated Complaint: Tachycardia Time Seen by Provider: 05/16/22 02:00 Source: patient, RN notes reviewed, old records reviewed Mode of arrival: wheelchair Limitations: no limitations - History of Present Illness Initial Comments: This is a 46-year-old male to the emergency department for evaluation patient presents today for evaluation of elevated heart rate severely elevated heart rate during sexual intercourse tonight patient heart rate elevated, he became very diaphoretic with chest pain. His heart is returned normal rate he is diaphoretic currently. MD Complaint: rapid heart beat (Heart rate is returned to normal), "heart racing", palpitations -: days(s) Context: occurred during rest Arrhythmia History: SVT Associated Symptoms: chest pain, diaphoresis Treatments Prior to Arrival: other (0) - Related Data Home Medications Medication Instructions Recorded Confirmed Apixaban [Eliquis] 5 mg PO BID 02/27/22 03/07/22 Clopidogrel [Plavix] 75 mg PO DAILY 02/27/22 03/07/22 Losartan Potassium [Cozaar] 25 mg PO DAILY 02/27/22 03/07/22 Mexiletine HCl 150 mg PO DIRECTED 02/27/22 03/07/22 carvediloL [Coreg] 6.25 mg PO BID 02/27/22 03/07/22 Previous Rx's Medication Instructions Recorded Mexiletine [Mexitil] 200 mg PO Q8HR #90 cap 02/28/22 propylthiouraciL [Propylthiouracil] 100 mg PO BID #60 tab 03/09/22 Allergies Allergy/AdvReac Type Severity Reaction Status Date / Time Tetanus Vaccines and Toxoid Allergy Rash/Hives Verified 05/16/22 01:51 Review of Systems ROS Statement: Those systems with pertinent positive or pertinent negative responses have been documented in the HPI. ROS Other: All systems not noted in ROS Statement are negative. Past Medical History Past Medical History: Myocardial Infarction (TN) Additional Past Medical History / Comment(s): cardiac arrest apr 2021, ventricular tachycardia Last Myocardial Infarction Date:: 05/01/2021 History of Any Multi-Drug Resistant Organisms: None Reported Past Surgical History: Unable to Obtain, Heart Catheterization With Stent, Pacemaker Additional Past Surgical History / Comment(s): "stent x5 or 6 RCA june 2021" Past Anesthesia/Blood Transfusion Reactions: No Reported Reaction Date of Last Stent Placement:: 06/14/2021 Past Psychological History: Unable to Obtain Smoking Status: Never smoker Past Alcohol Use History: None Reported Past Drug Use History: None Reported General Exam General appearance: alert, in no apparent distress, anxious Head exam: Present: atraumatic, normocephalic, normal inspection Eye exam: Present: normal appearance, PERRL, EOMI. Absent: scleral icterus, conjunctival injection, periorbital swelling ENT exam: Present: normal exam, mucous membranes moist Neck exam: Present: normal inspection. Absent: tenderness, meningismus, lymphadenopathy Respiratory exam: Present: normal lung sounds bilaterally. Absent: respiratory distress, wheezes, rales, rhonchi, stridor Cardiovascular Exam: Present: regular rate, normal rhythm, normal heart sounds. Absent: systolic murmur, diastolic murmur, rubs, gallop, clicks GI/Abdominal exam: Present: soft, normal bowel sounds. Absent: distended, tenderness, guarding, rebound, rigid Extremities exam: Present: normal inspection, full ROM, normal capillary refill. Absent: tenderness, pedal edema, joint swelling, calf tenderness Back exam: Present: normal inspection Neurological exam: Present: alert, oriented X3, CN II-XII intact Psychiatric exam: Present: normal affect, normal mood Skin exam: Present: warm, dry, intact, normal color. Absent: rash Course Vital Signs 05/16/22 01:44 Temperature 97.9 F Pulse Rate 78 Respiratory 18 Rate Blood Pressure 144/91 O2 Sat by Pulse 100 Oximetry - Reevaluation(s) Reevaluation #1: 05/16/22 02:12 Medical record is reviewed ST elevated TN is paged upon receipt initial EKG Reevaluation #2: 05/16/22 02:12 Patient resting comfortably no chest pain mild diaphoresis Reevaluation #3: 05/16/22 02:12 Patient informed results and questions answered EKG Findings - EKG Comments: EKG Findings:: EKG shows sinus rhythm 66 TN 203 QRS [address] elevation V1 V2 V3 V4 Medical Decision Making - Medical Decision Making 46 male be admitted for ST elevated TN - Radiology Data Radiology results: report reviewed (CHest x-rays negative for acute disease), image reviewed Critical Care Time Critical Care Time: Yes Total Critical Care Time: 31 Disposition Clinical Impression: Coronary artery disease, Unstable angina, STEMI (ST elevation myocardial infarction) Disposition: ADMITTED IP TO THIS HOSP Condition: Serious Is patient prescribed a controlled substance at d/c from ED?: No Referrals: Micaela Galdamez MD [Primary Care Provider] - 1-2 days Time of Disposition: 02:15
[2022-05-16 02:24] LABS: Basophils % (A) 0 %; Eosinophils # (A) 0.1 k/uL (0-0.7); Eosinophils % (A) 1 %; HCT 40.7 % (39.0-53.0); Lymphocytes # (A) 1.7 k/uL (1.0-4.8); Lymphocytes % (A) 17 %; MCH 29.5 pg (25.0-35.0); MCHC 34.3 g/dL (31.0-37.0); Mean Platelet Volume 7.6; Monocytes # (A) 0.7 k/uL (0-1.0); Monocytes % (A) 7 %; Neutrophils # (A) 7.3 k/uL (1.3-7.7); Neutrophils % (A) 73 %; Platelet Count 240 k/uL (150-450); RBC 4.73 m/uL (4.30-5.90); RDW 13.1 % (11.5-15.5)
[2022-05-16 02:32] LABS: INR 1.1 (<1.2); Prothrombin Time 11.4 sec (9.0-12.0)
[2022-05-16 02:33] LABS: Partial Thromboplastin Time 24.9 sec (22.0-30.0)
[2022-05-16 02:36] LABS: Albumin 4.3 g/dL (3.5-5.0); Calcium 9.8 mg/dL (8.4-10.2); Magnesium 2.1 mg/dL (1.6-2.3); Phosphorus 2.6 mg/dL (2.5-4.5); Potassium 4.1 mmol/L (3.5-5.1); Total Bilirubin 0.5 mg/dL (0.2-1.3); Total Protein 7.2 g/dL (6.3-8.2)
--- NOTE | 2022-05-16 02:50 | XR ---
EXAMINATION TYPE: XR chest 1V DATE OF EXAM: 05/16/2022 COMPARISON: 8 10/08/2021 HISTORY: Chest pain TECHNIQUE: FINDINGS: Heart and mediastinum are normal. Lungs are clear. Diaphragm is normal. Bony thorax is inta ct. There is a left axillary pacemaker. IMPRESSION: No active cardiopulmonary disease. No change.
[2022-05-16] MEDS ORDERED: MIDAZOLAM 2 MG/2 ML VIAL IV ONE ×2 (02:54→02:57)
[2022-05-16] MEDS ORDERED: LIDOCAINE 1% INJ 10MG/ML (30 ML VIAL-PF) SQ ONE ×2 (02:56→02:58)
[2022-05-16] MEDS ORDERED: ASPIRIN 81 MG PO ONE ×2 (02:56→02:57)
[2022-05-16] MEDS ORDERED: IV FLUID CONTINUATION 1,000 ML IV ONE ×2 (02:57)
[2022-05-16] MEDS ORDERED: ASPIRIN 81 MG ONE (02:59)
[2022-05-16] MEDS ORDERED: NITROGLYCERIN SL TABS 0.4 MG TAB SUBLINGUAL PRN (03:09)
[2022-05-16] MEDS ORDERED: MORPHINE SULFATE 4 MG/ML SYRINGE IV PRN (03:09)
[2022-05-16] MEDS ORDERED: ASPIRIN 81 MG PO STA (03:09)
[2022-05-16] MEDS ORDERED: RX INFO: IV CONTRAST WAS GIVEN 1 EACH MISC MISCELLANE PRN (03:23)
[2022-05-16 03:54] LABS: Glucose,Whole Blood 111 mg/dL (70-110)
[2022-05-16 04:48] LABS: Basophils % (A) 0 %; Eosinophils # (A) 0.1 k/uL (0-0.7); Eosinophils % (A) 1 %; HCT 35.3 % (39.0-53.0); Lymphocytes # (A) 1.3 k/uL (1.0-4.8); Lymphocytes % (A) 13 %; MCH 29.2 pg (25.0-35.0); MCHC 34.1 g/dL (31.0-37.0); MCV 85.6 fL (80.0-100.0); Mean Platelet Volume 8.1; Monocytes # (A) 0.5 k/uL (0-1.0); Monocytes % (A) 5 %; Neutrophils # (A) 8.5 k/uL (1.3-7.7); Neutrophils % (A) 81 %; Platelet Count 214 k/uL (150-450); RBC 4.13 m/uL (4.30-5.90); WBC 10.6 k/uL (3.8-10.6)
[2022-05-16 05:08] LABS: Calcium 8.8 mg/dL (8.4-10.2); Potassium 4.2 mmol/L (3.5-5.1)
--- NOTE | 2022-05-16 06:39 | CC ---
CARDIAC CATHETERIZATION REPORT INDICATIONS: Acute anterior wall myocardial infarction. This is a 46-year-old gentleman with history of extensive coronary artery disease with prior coronary intervention, who came in to hospital with sudden onset sustained palpitations during intercourse. An EKG that was done in the emergency room showed ST-segment elevation in the precordial leads that per the ER physician's interpretation was much worse than his baseline ST elevation due to which STEMI Team was activated and I met the patient in the blender laborer. At the time of my evaluation, he is chest pain free. Apparently, he was diaphoretic earlier. PROCEDURE NOTE: After obtaining informed consent, left heart catheterization and coronary angiogram were performed via the right femoral artery using standard Chris catheters. The right coronary artery was engaged using a LUANNE catheter. Left ventricular hemodynamics were obtained using the right Chris catheter. The patient tolerated the procedure well without any obvious immediate complications. A femoral angiogram was performed and decision was made for manual hemostasis because of site of entry into the femoral artery. FINDINGS: 1. Hemodynamics: Left ventricular end-diastolic pressure is 20 mm. There is no significant gradient across the aortic valve. 2. Left ventriculogram: Left ventriculogram is not performed. 3. Angiographic Data: a.Left main coronary artery: Left main coronary artery is a normal-sized vessel and is free of stenosis, divides into left anterior descending coronary artery and circumflex coronary artery. b. LAD appears totally occluded in the proximal portion. c.Circumflex coronary artery in the AV groove circ appears diffusely diseased. d.Right coronary artery is a large dominant vessel that was stented previously and the stent appears patent. CONCLUSIONS: Patent stent within the right coronary artery, chronically occluded left anterior descending artery. We reviewed angiographic data with Dr. Villalba, the on-call hog feeder, and we have decided to manage him with optimal medical therapy. MMODL / IJN: [id number] /
[2022-05-16] MEDS: SODIUM CHLORIDE 0.9% 1,000 ML IV SCH ×2 (06:55→09:29)
[2022-05-16] MEDS: MEXILETINE 200 MG CAP PO SCH ×3 (06:55→23:43)
[2022-05-16] MEDS: carvediloL 6.25 MG TAB PO SCH ×2 (06:55→13:45)
--- NOTE | 2022-05-16 07:13 | CONS ---
CONSULTATION CHIEF COMPLAINT: Sustained palpitations. HISTORY OF PRESENT ILLNESS: Jaylin is a 46-year-old gentleman with history of coronary artery disease status post prior intervention who presented to [facility] with acute onset sustained palpitations during intercourse where the heart rate was elevated apparently into the 130s, felt little diaphoretic and he came to the ER from there he was evaluated by Dr. Thayer, the emergency room physician and the STEMI Team was activated because of ST-segment elevation in the precordial leads. I met the patient in the cleaner laboratory equipment. He has persistent ST elevation in the precordial leads, was chest pain-free and hemodynamically stable. PAST MEDICAL HISTORY: Significant for coronary artery disease, status post prior angioplasty of the right coronary artery and chronic occlusion of the LAD. His right coronary artery was totally occluded and was stented. He also has had an AICD and had a left ventricular apical thrombus, on Eliquis. He apparently did not have any viable myocardium in the LAD distribution. MEDICATIONS: Medications at home include, 1. . 2. Coreg. 3. Mexiletine. 4. Cozaar. 5. Plavix. 6. Eliquis. ALLERGIES: Allergic to tetanus. FAMILY HISTORY: Negative for premature coronary artery disease. SOCIAL HISTORY: Negative for current smoking, EtOH abuse or drug abuse. REVIEW OF SYSTEMS: HEENT: Unremarkable. CARDIAC: As described above. RESPIRATORY: As described above. GASTROINTESTINAL: Negative. GENITOURINARY: Negative. ALLERGY/IMMUNOLOGY: Negative. SKIN: Negative. MUSCULOSKELETAL: Significant for arthritis. PSYCHOSOCIAL: Negative. DERM: Negative. CONSTITUTIONAL: Negative. ONCOLOGICAL: Negative. LEATHER CLEANER: Negative. PHYSICAL EXAMINATION: GENERAL: Comfortable at rest. VITAL SIGNS: Stable. NECK: There is no jugular venous distention. Carotid upstroke is normal. There is no bruit. CHEST: Reveals good air entry bilaterally. HEART: Reveals first and second heart sounds. No gallop, no murmur. ABDOMEN: Soft. EXTREMITIES: Does not reveal any edema. Peripheral pulses are felt. LABORATORY DATA: His BUN is 21, creatinine is 1.7. IMPRESSION AND PLAN: Acute coronary syndrome. EKG findings suggestive of acute anterior wall myocardial infarction. He always had ST-segment elevation in the precordial leads, but the current EKG looks worse. The patient will undergo emergent catheterization. The patient understands risks, benefits, including the risk of bleeding and vascular access complications. MMODL / IJN: [id number] /
--- NOTE | 2022-05-16 08:43 | CONS ---
CONSULTATION HISTORY OF PRESENT ILLNESS: Jaylin is a 46-year-old gentleman with history of ischemic cardiomyopathy, ventricular tachycardia, intracardiac thrombus, who presented to the hospital early this morning with sustained palpitations during intercourse and was thought to have ST-segment elevation in the precordial leads due to which he was brought to the cardiac cath technician as a STEMI. He underwent cardiac catheterization that revealed chronically occluded LAD and a patent stent within the right coronary artery was managed with optimal medical therapy. His lab showed that the troponin was 0.03 and subsequently had gone up to 0.07. This morning he appears comfortable at rest and is free of symptoms, stable hemodynamically. PHYSICAL EXAMINATION: GENERAL: Comfortable at rest. VITAL SIGNS: Stable. CHEST: Exam reveals good air entry bilaterally. HEART: Exam reveals first and second heart sounds with no gallop. : Groin is free of bleeding, bruit, hematoma. Foot pulses are intact. LABS: Showed a potassium of 4.2, creatinine is 1.5, his hemoglobin is 12, creatinine is 1.5. Troponin is mildly elevated. BNP is 1060. ASSESSMENT: 1. Palpitations. 2. Acute coronary syndrome. 3. History of hypothyroidism. 4. History of ventricular tachycardia. PLAN: I will resume the sotalol that he was on along with the PTU. I will hold the Eliquis today and tomorrow morning. We should get his AICD checked to make sure that he did not have an episode of V tach or V fib last night. We will move him out to the regular floor and discharge home tomorrow morning. MMCHANELLE / MARIA ESTHERN: [id number] /
[2022-05-16] MEDS: SOTALOL 80 MG TAB PO SCH (09:16)
[2022-05-16] MEDS: propylthiouraciL 50 MG TAB PO SCH ×2 (09:25→20:27)
[2022-05-16] MEDS: CLOPIDOGREL 75 MG TAB PO SCH (09:25)
[2022-05-16] MEDS: LOSARTAN 25 MG TAB PO SCH (09:25)
--- NOTE | 2022-05-16 10:35 | P.PN ---
Subjective Progress Note Date: 05/16/22 The patient is a 46-year-old male with past medical history of coronary artery disease, ischemic cardiomyopathy status post AICD, ventricular tachycardia, and intracardiac thrombus, who presented to the hospital with palpitations and elevated heart rate. The patient was having intercourse with his when his heart rate remained sustained thereafter. He states his heart rate was in the 120s for at least an hour. He states he did not have any chest pain or chest pressure. Initial EKG showed mild anteroseptal ST elevation. He ultimately underwent coronary angiogram where there was no progression of disease. He has a known occlusion of the LAD. The patient was interviewed and examined lying comfortably in bed. He states he remains completely asymptomatic, but he has not gotten out of bed. He states he does take his medications, however the sotalol is new. He has an appointment within the next week and a half at [facility], or they will likely reduce his mexiletine. GENERAL: Well-appearing, well-nourished and in no acute distress. NECK: Supple without JVD or thyromegaly. LUNGS: Breath sounds clear to auscultation bilaterally. Respiration equal and unlabored. No wheezes, rales or rhonchi. HEART: Regular rate and rhythm without murmurs, rubs or gallops. S1 and S2 heard. EXTREMITIES: Normal range of motion, no edema. No clubbing or cyanosis. Peripheral pulses intact and strong. VITALS: Blood pressure 115/71, respiratory rate 16, pulse 54, afebrile, SpO2 97% on room air TELEMETRY: Sinus rhythm overnight LABS: W BC 10.6, hemoglobin 12.0, hematocrit 35.3, platelet 214, sodium 136, potassium 4.2, BUN 19, creatinine 1.5 to, troponin 0.03, 0.07, 0.12 IMPRESSION: Acute onset of palpitations Acute coronary syndrome History of CAD, known occlusion of the LAD Ischemic cardiomyopathy, EF around 35%, status post AICD History of ventricular tachycardia, on sotalol and mexiletine PLAN: Device interrogation to check for arrhythmia No changes in his current cardiac medication regimen Recommend the patient ambulate Further recommendations to be based on clinical course I am dictating on behalf of Dr Garcia Barboza's history/physical and assessment/plan. Objective - Vital Signs Vital signs: Vital Signs Temp 97.6 F 05/16/22 08:00 Pulse 54 L 05/16/22 09:00 Resp 11 L 05/16/22 10:00 BP 115/71 05/16/22 10:00 Pulse Ox 97 05/16/22 10:00 FiO2 Intake & Output 05/15/22 05/16/22 05/16/22 18:59 06:59 18:59 Intake Total 225 465 Output Total 0 900 Balance 225 -435 Weight 80.286 kg Intake: Intake, IV Titration 225 225 Amount Sodium Chloride 0.9% 1, 225 225 000 ml @ 75 mls/hr IV . [id number] [facility] Rx#:[id number] Oral 240 Output: Urine 0 900 Other: Voiding Method Urinal Urinal - Labs CBC & Chem 7: 05/16/22 04:25 05/16/22 04:25 Labs: Abnormal Lab Results - Last 24 Hours (Table) 05/16/22 05/16/22 05/16/22 Range/Units 02:17 03:52 04:25 RBC (4.30-5.90) m/uL Hgb (13.0-17.5) gm/dL Hct (39.0-53.0) % Neutrophils # (1.3-7.7) k/uL Sodium (137-145) mmol/L BUN 21 H (9-20) mg/dL Creatinine 1.71 H (0.66-1.25) mg/dL Glucose 117 H (74-99) mg/dL POC Glucose (mg/dL) 111 H (70-110) mg/dL Troponin I 0.071 H* (0.000-0.034) ng/mL 05/16/22 05/16/22 05/16/22 Range/Units 04:25 04:25 07:59 RBC 4.13 L (4.30-5.90) m/uL Hgb 12.0 L (13.0-17.5) gm/dL Hct 35.3 L (39.0-53.0) % Neutrophils # 8.5 H (1.3-7.7) k/uL Sodium 136 L (137-145) mmol/L BUN (9-20) mg/dL Creatinine 1.52 H (0.66-1.25) mg/dL Glucose 114 H (74-99) mg/dL POC Glucose (mg/dL) (70-110) mg/dL Troponin I 0.129 H* (0.000-0.034) ng/mL
--- NOTE | 2022-05-16 13:06 | P.HPIM ---
History of Present Illness H&P Date: 05/16/22 This is a 46 year old male with medical history significant for cardiac arrest in 2020, ventricular tachycardia status post permanent pacemaker, previous cardiac stenting to the RCA, history LV thrombus maintained on eliquis outpatient. Recent admission for covid infection and found to have hyperthyr oiditis and amidarone induced thyroiditis at that time. Maintained on propylthiouracil outpatient. Patient is a former smoker. Patient presented to the EC brought in by with concern for elevated heart rate that was not coming down. Patient was having sexual intercourse with and experienced palpitations and tachycardia, states heart rate was in between 110 and 120. He denies chest pain, dizziness, lightheadedness. Reports no cough, fever, recent illness. No diaphoresis. 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 Upon presentation to the ER, EKG performed showed mild anteroseptal ST elevation and patient admitted for ST elevation myocardial infarction and brought to the cardiac lab technician by Dr. Padilla. Patient was found to have patent RCA stenting and chronic LAD occlusion. Cardiology planning to medically manage patient. There is plan today for interrogation of pacemaker. Currently denying chest pain. He is being monitored in intensive care unit currently. Eliquis will be resumed tomorrow per cardiology. Labs on admission showing white count 10.6, hgb 12.0, sodium 136, potassium 4.2, BUN 19, creatinine 1.52. Blood glucose 110s. Troponin elevation 0.034, 0.071, 0.129, proBNP level 1060 Patient is afebrile, heart rate 64, blood pressure 127/78, 96% room air, heart rate 64 REVIEW OF SYSTEMS: CONSTITUTIONAL: No fever, no malaise, no fatigue. HEENT: No recent visual problems or hearing problems. Denied any sore throat. CARDIOVASCULAR: No chest pain, orthopnea, PND, no palpitations, no syncope. PULMONARY: No shortness of breath, no cough, no hemoptysis. GASTROINTESTINAL: No diarrhea, no nausea, no vomiting, no abdominal pain. NEUROLOGICAL: No headaches, no weakness, no numbness. HEMATOLOGICAL: Denies any bleeding or petechiae. GENITOURINARY: Denies any burning micturition, frequency, or urgency. MUSCULOSKELETAL/RHEUMATOLOGICAL: Denies any joint pain, swelling, or any muscle pain. ENDOCRINE: Denies any polyuria or polydipsia. The rest of the 14-point review of systems is negative. PHYSICAL EXAMINATION: GENERAL: The patient is alert and oriented x3, not in any acute distress. Well developed, well nourished. HEENT: Pupils are round and equally reacting to light. EOMI. No scleral icterus. No conjunctival pallor. Normocephalic, atraumatic. No pharyngeal erythema. No thyromegaly. CARDIOVASCULAR: S1 and S2 present. No murmurs, rubs, or gallops. PULMONARY: Chest is clear to auscultation, no wheezing or crackles. ABDOMEN: Soft, nontender, nondistended, normoactive bowel sounds. No palpable organomegaly. MUSCULOSKELETAL: No joint swelling or deformity. EXTREMITIES: No cyanosis, clubbing, or pedal edema. NEUROLOGICAL: Gross neurological examination did not reveal any focal deficits. SKIN: No rashes. 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 Dr. Marilynn MD I have performed a history and physical examination and medical decision making of this patient, discussed the same with the dictator, and agree with the dictators assessment and plan as written, documented as a scribe. Based on total visit time, I have performed more than 50% of this visit. Past Medical History Past Medical History: Myocardial Infarction ([place]) Additional Past Medical History / Comment(s): cardiac arrest apr 2021, ventricular tachycardia Last Myocardial Infarction Date:: 05/01/2021 History of Any Multi-Drug Resistant Organisms: None Reported Past Surgical History: Heart Catheterization With Stent, Pacemaker Additional Past Surgical History / Comment(s): "stent x5 or 6 RCA june 2021" Past Anesthesia/Blood Transfusion Reactions: No Reported Reaction Date of Last Stent Placement:: 06/14/2021 Type of Cardiac Device: Permanent Pacemaker Device Placement Date:: 05/2021 Past Psychological History: No Psychological Hx Reported Smoking Status: Former smoker Past Alcohol Use History: None Reported Past Drug Use History: None Reported Medications and Allergies Home Medications Medication Instructions Recorded Confirmed Type Apixaban [Eliquis] 5 mg PO BID 02/27/22 05/16/22 History Clopidogrel [Plavix] 75 mg PO DAILY 02/27/22 05/16/22 History Losartan Potassium [Cozaar] 25 mg PO DAILY 02/27/22 05/16/22 History carvediloL [Coreg] 6.25 mg PO BID 02/27/22 05/16/22 History Mexiletine [Mexitil] 200 mg PO Q8HR #90 cap 02/28/22 05/16/22 Rx propylthiouraciL [Propylthiouracil] 100 mg PO BID #60 tab 03/09/22 05/16/22 Rx Atorvastatin Calcium 40 mg PO DIRECTED 05/16/22 05/16/22 History Sotalol [Betapace] 80 mg PO DIRECTED 05/16/22 05/16/22 History Allergies Allergy/AdvReac Type Severity Reaction Status Date / Time Tetanus Vaccines and Toxoid Allergy Rash/Hives Verified 05/16/22 06:38 Physical Exam Vitals: Vital Signs Temp Pulse Pulse Resp BP BP Pulse Ox 05/16/22 07:10 95 05/16/22 07:08 58 L 16 94 L 05/16/22 07:00 61 16 108/62 95 05/16/22 06:08 58 L 16 108/63 94 L 05/16/22 06:00 59 L 8 L 100/63 93 L 05/16/22 05:08 57 L 18 96/56 94 L 05/16/22 05:00 58 L 18 107/62 97 05/16/22 04:45 58 L 18 105/63 97 05/16/22 04:42 97 05/16/22 04:38 60 16 107/62 94 L 05/16/22 04:30 58 L 12 104/62 97 05/16/22 04:15 60 16 110/80 97 05/16/22 04:08 60 16 104/62 95 05/16/22 04:00 98.5 F 60 17 113/66 93 L 05/16/22 03:53 59 L 16 110/80 95 05/16/22 03:51 60 30 H 96 05/16/22 03:38 98.5 F 60 16 113/66 95 05/16/22 02:21 77 15 144/89 100 05/16/22 01:44 97.9 F 78 18 144/91 100 Intake and Output 05/15/22 05/16/22 05/16/22 22:59 06:59 14:59 Intake Total 225 75 Output Total 0 0 Balance 225 75 Intake: Intake, IV Titration 225 75 Amount Sodium Chloride 0.9% 1, 225 75 000 ml @ 75 mls/hr IV . [id number] [facility] Rx#:[id number] Output: Urine 0 0 Other: Voiding Method Urinal Urinal Weight 80.286 kg Results CBC & Chem 7: 05/16/22 04:25 05/16/22 04:25 Labs: Abnormal Lab Results - Last 24 Hours (Table) 05/16/22 05/16/22 05/16/22 Range/Units 02:17 03:52 04:25 RBC (4.30-5.90) m/uL Hgb (13.0-17.5) gm/dL Hct (39.0-53.0) % Neutrophils # (1.3-7.7) k/uL Sodium (137-145) mmol/L BUN 21 H (9-20) mg/dL Creatinine 1.71 H (0.66-1.25) mg/dL Glucose 117 H (74-99) mg/dL POC Glucose (mg/dL) 111 H (70-110) mg/dL Troponin I 0.071 H* (0.000-0.034) ng/mL 05/16/22 05/16/22 Range/Units 04:25 04:25 RBC 4.13 L (4.30-5.90) m/uL Hgb 12.0 L (13.0-17.5) gm/dL Hct 35.3 L (39.0-53.0) % Neutrophils # 8.5 H (1.3-7.7) k/uL Sodium 136 L (137-145) mmol/L BUN (9-20) mg/dL Creatinine 1.52 H (0.66-1.25) mg/dL Glucose 114 H (74-99) mg/dL POC Glucose (mg/dL) (70-110) mg/dL Troponin I (0.000-0.034) ng/mL Assessment and Plan Time with Patient: Less than 30
[2022-05-16 14:34] LABS: T4, Free (Free Thyroxine) 1.64 ng/dL (0.78-2.19)
[2022-05-16] MEDS ORDERED: ATORVASTATIN 40 MG TAB PO SCH (21:00)
[2022-05-17 06:37] VITALS: RESP 16
[2022-05-17] MEDS ORDERED: ASPIRIN 325 MG TAB PO SCH (09:00)
[2022-05-17] MEDS: propylthiouraciL 50 MG TAB PO SCH (09:11)
[2022-05-17] MEDS: carvediloL 6.25 MG TAB PO SCH (09:12)
[2022-05-17] MEDS: MEXILETINE 200 MG CAP PO SCH (09:12)
[2022-05-17] MEDS: CLOPIDOGREL 75 MG TAB PO SCH (09:12)
[2022-05-17] MEDS: LOSARTAN 25 MG TAB PO SCH (09:14)
[2022-05-17] MEDS: SOTALOL 80 MG TAB PO SCH (09:55)
[2022-05-17] MEDS ORDERED: carvediloL 3.125 MG TAB PO SCH (10:30)
--- NOTE | 2022-05-17 12:05 | P.PN ---
Subjective Progress Note Date: 05/17/22 The patient is a 46-year-old male with past medical history of coronary artery disease, ischemic cardiomyopathy status post AICD, ventricular tachycardia, and intracardiac thrombus, who presented to the hospital with palpitations and elevated heart rate. The patient was having intercourse with his when his heart rate remained sustained thereafter. He states his heart rate was in the 120s for at least an hour. He states he did not have any chest pain or chest pressure. Initial EKG showed mild anteroseptal ST elevation. He ultimately underwent coronary angiogram where there was no progression of disease. He has a known occlusion of the LAD. Device interrogation shows no arrhythmias. The patient was interviewed and examined lying comfortably in bed. He states he remains completely asymptomatic. He states he did well overnight and is eager to be discharged. GENERAL: Well-appearing, well-nourished and in no acute distress. NECK: Supple without JVD or thyromegaly. LUNGS: Breath sounds clear to auscultation bilaterally. Respiration equal and unlabored. No wheezes, rales or rhonchi. HEART: Regular rate and rhythm without murmurs, rubs or gallops. S1 and S2 heard. EXTREMITIES: Normal range of motion, no edema. No clubbing or cyanosis. Peripheral pulses intact and strong. VITALS: Blood pressure 119/73, pulse 58, respiratory rate 96, SpO2 97.6F TELEMETRY: Sinus rhythm overnight IMPRESSION: Acute onset of palpitations Acute coronary syndrome History of CAD, known occlusion of the LAD Ischemic cardiomyopathy, EF around 35%, status post AICD History of ventricular tachycardia, on sotalol and mexiletine Hypothyroidism, suppressed TSH PLAN: We discovered of all 3.125 as he was not previously taking at home Continue all other medications Recommend the patient ambulate Patient may be discharged from the cardiac standpoint. The patient has an outpatient follow-up with Azar Hair scheduled within the next 2 weeks. I am dictating on behalf of Dr Garcia Barboza's history/physical and assessment/plan. Objective - Vital Signs Vital signs: Vital Signs Temp 97.6 F 05/17/22 08:00 Pulse 58 L 05/17/22 10:44 Resp 16 05/17/22 08:00 BP 119/73 05/17/22 10:44 Pulse Ox 96 05/17/22 08:00 FiO2 Intake & Output 05/16/22 05/17/22 05/17/22 18:59 06:59 18:59 Intake Total 965 850 240 Output Total 900 Balance 65 850 240 Weight 82.2 kg Intake: Intake, IV Titration 225 450 Amount Sodium Chloride 0.9% 1, 225 450 000 ml @ 75 mls/hr IV . [id number] [facility] Rx#:[id number] Oral 740 400 240 Output: Urine 900 Other: Voiding Method Urinal Urinal Urinal # Voids 2 2 - Labs CBC & Chem 7: 05/16/22 04:25 05/16/22 04:25 Labs: Abnormal Lab Results - Last 24 Hours (Table) 05/16/22 Range/Units 04:25 TSH 0.361 L (0.465-4.680) mIU/L
[2022-05-17 12:16] LABS: Chol/HDL Ratio 3.16 Ratio; LDL Cholesterol,Calculated 91.6 mg/dL (0.0-131.0)
[2022-05-17 16:12] VITALS: BP 112/58; PULSE 52; TEMP 98
[2022-05-18] MEDS ORDERED: ASPIRIN 81 MG PO SCH (09:00)
--- NOTE | 2022-05-18 22:14 | P.DS ---
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 Pacemaker has been interrogated. He has been cleared by cardiology. Will discharge on oral eliquis 5 mg PO BID and also p lavix 75 mg PO BID. Patient has been resumed back on his home carvedilol as well. Patient recommended to follow up with his ophthalmic medical technician at [facility] on discharge. Hospital Course This is a 46 year old male with medical history significant for cardiac arrest in 2020, ventricular tachycardia status post permanent pacemaker, previous cardiac stenting to the RCA, history LV thrombus maintained on eliquis outpatient. Recent admission for covid infection and found to have hyperthyroiditis and amidarone induced thyroiditis at that time. Maintained on propylthiouracil outpatient. Patient is a former smoker. Patient presented to the EC brought in by with concern for elevated heart rate that was not coming down. Patient was having sexual intercourse with and experienced palpitations and tachycardia, states heart rate was in between 110 and 120. He denies chest pain, dizziness, lightheadedness. Reports no cough, fever, recent illness. No diaphoresis. 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 Upon presentation to the ER, EKG performed showed mild anteroseptal ST elevation and patient admitted for ST elevation myocardial infarction and brought to the cardiac builder's labourer by Dr. Padilla. Patient was found to have patent RCA stent and chronic LAD occlusion. Cardiology planning to medically manage patient. Patient was admitted to the hospital and monitored in intensive care unit. His pacemaker was interrogated. Heart rate normalized and he has been chest pain free. Right femoral groin access has remained soft with no evidence for hematoma. Patient will be discharged home to follow up with his own ophthalmic medical technician. Labs on admission showing white count 10.6, hgb 12.0, sodium 136, potassium 4.2, BUN 19, creatinine 1.52. Blood glucose 110s. Troponin elevation 0.034, 0.071, 0.129, proBNP level 1060 Patient is afebrile, heart rate 64, blood pressure 127/78, 96% room air, heart rate 64 05/17/2022 Patient evaluated today in intensive care unit. Resting in bed. No acute events overnight. No reports of chest pain, no palpitations, dizziness or lightheadedness. His heart rate is regular rhythm and rate and he has maintained in normal sinus bradycardia with a heart rate around 58 BMP. Blood pressure 112/58, afebrile. His lungs are clear, Focal neurological exam is negative. Patient does have elevated creatinine at baseline. TSH was checked at 00.361, and Free T4 found to be 1.64. He states he sees endocrine in the next 2 weeks. His propylthiouracil dose has been decreased to 50 mg BID outpatient which will be continued on discharge. Patient stable for discharge home. Please see medication reconciliation for a list of current medication. Thank you for allowing us to participate in the care of this patient. Total time taken in discharge planning greater than 35 minutes. The impression and plan of care has been dictated by Dolores Gonzáles Nurse Practitioner as directed. Dr. Marilynn MD I have performed a history and physical examination and medical decision making of this patient, discussed the same with the dictator, and agree with the dictators assessment and plan as written, documented as a scribe. Based on total visit time, I have performed more than 50% of this visit. Plan - Discharge Summary New Discharge Prescriptions: New carvediloL [Coreg] 3.125 mg PO BID-W/MEALS #60 tab propylthiouraciL [Propylthiouracil] 50 mg PO BID tab Clopidogrel [Plavix] 75 mg PO DAILY #30 tablet Continue Losartan Potassium [Cozaar] 25 mg PO DAILY Sotalol [Betapace] 80 mg PO DAILY propylthiouraciL [Propylthiouracil] 50 mg PO BID Apixaban [Eliquis] 5 mg PO BID Mexiletine [Mexitil] 200 mg PO Q8HR #90 cap Changed Atorvastatin Calcium 40 mg PO HS #0 Discontinued Clopidogrel [Plavix] 75 mg PO DAILY Discharge Medication List Apixaban [Eliquis] 5 mg PO BID 02/27/22 [History] Losartan Potassium [Cozaar] 25 mg PO DAILY 02/27/22 [History] Mexiletine [Mexitil] 200 mg PO Q8HR #90 cap 02/28/22 [Rx] Sotalol [Betapace] 80 mg PO DAILY 05/16/22 [History] Atorvastatin Calcium 40 mg PO HS #0 05/17/22 [Rx] Clopidogrel [Plavix] 75 mg PO DAILY #30 tablet 05/17/22 [Rx] carvediloL [Coreg] 3.125 mg PO BID-W/MEALS #60 tab 05/17/22 [Rx] propylthiouraciL [Propylthiouracil] 50 mg PO BID 05/17/22 [History] propylthiouraciL [Propylthiouracil] 50 mg PO BID tab 05/17/22 [Rx] Follow up Appointment(s)/Referral(s): Micaela Galdamez MD [Primary Care Provider] - 1-2 days Ambulatory/Diagnostic Orders: Basic Metabolic Panel [LAB.AMB] Time Frame: 3 Days, Location: None Selected Patient Instructions/Handouts: Heart Catheterization (DC) Activity/Diet/Wound Care/Special Instructions: Please follow up with your stencil printer as previously scheduled. Follow up at Cardiology [facility] as previously scheduled Discharge/Stand Alone Forms: Work/School Release / Restrict Discharge Disposition: HOME SELF-CARE
== END 2022-05-17 16:15 | disposition home or self-care (01) | DRG 282 ==
LOC: SUPCPDRO 01:41 → EC 01:41 → 2SICU 03:09
PROVIDERS: ADMIT Hospitalist; ATTEND Hospitalist
PROC: B2111ZZ Fluoroscopy of Multiple Coronary Arteries using Low Osmolar Contrast (ICD-10-PCS; 2022-05-16)
PROC: 4A023N7 Measurement of Cardiac Sampling and Pressure, Left Heart, Percutaneous Approach (ICD-10-PCS; principal; 2022-05-16 02:39)
DX: I21.09 ST elevation (STEMI) myocardial infarction involving other coronary artery of anterior wall (principal); E03.9 Hypothyroidism, unspecified; Z86.74 Personal history of sudden cardiac arrest; I25.110 Atherosclerotic heart disease of native coronary artery with unstable angina pectoris; I25.5 Ischemic cardiomyopathy; I24.9 Acute ischemic heart disease, unspecified; R00.1 Bradycardia, unspecified; R79.89 Other specified abnormal findings of blood chemistry; Z95.810 Presence of automatic (implantable) cardiac defibrillator; I25.2 Old myocardial infarction; Z86.16 Personal history of COVID-19; Z87.891 Personal history of nicotine dependence; Z79.899 Other long term (current) drug therapy; Z79.02 Long term (current) use of antithrombotics/antiplatelets; Z79.01 Long term (current) use of anticoagulants; Z88.7 Allergy status to serum and vaccine; Z95.5 Presence of coronary angioplasty implant and graft; Z86.718 Personal history of other venous thrombosis and embolism; Z86.79 Personal history of other diseases of the circulatory system; Z28.310 Unvaccinated for COVID-19
CPT/HCPCS: 36415; 71045; 80048; 80053; 80061; 83605; 83735; 83880; 84100; 84439; 84443; 84484; 85025; 85610; 85730; 93005; 93458

== ENCOUNTER 2024-09-26 08:13 | Observation (INO) | payer BC ==
--- NOTE | 2024-09-26 08:30 | ED ---
Nausea/Vomiting/Diarrhea HPI - General Chief complaint: Nausea/Vomiting/Diarrhea Stated complaint: Nausea,irreg heart rate Time Seen by Provider: 09/26/24 08:28 Source: patient, RN notes reviewed, old records reviewed Mode of arrival: ambulatory - History of Present Illness Initial comments: 48-year-old male presented to the ER for evaluation of nausea. Patient states last evening around 6 PM he was either playing video games or having dinner with his family when he felt a nauseous abdominal discomfort. He states he looked at his smart watch at that time and was having "downward sweeps" and his heart rate. His watch noted this as a PVC. He states the nauseous feeling comes and goes and he states these PVCs correlate. He does report an extensive cardiac history with and internal defibrillator/pacemaker in place. He states when he felt like this prior he was having an abnormal heart rhythm , V tach, many years ago which prompted defibrillator placement. He denies any abdominal pain, vomiting, constipation/diarrhea, urinary complaints, chest pain, shortness of breath, dizziness, lightheadedness, fevers, chills, cough, congestion or peripheral edema. Patient has not taken any medications for his symptoms at this time. No aggravating or alleviating factors. No other complaints - Related Data Home Medications Medication Instructions Recorded Confirmed Apixaban [Eliquis] 5 mg PO BID 02/27/22 09/26/24 Sotalol [Betapace] 80 mg PO DAILY 05/16/22 09/26/24 Atorvastatin [Lipitor] 80 mg PO HS 09/26/24 09/26/24 Empagliflozin [Jardiance] 10 mg PO DAILY 09/26/24 09/26/24 Metoprolol Succinate [Metoprolol 25 mg PO DAILY 09/26/24 09/26/24 Succinate ER] Nitroglycerin Sl Tabs [Nitrostat] 0.4 mg SUBLINGUAL Q5M PRN 09/26/24 09/26/24 Sacubitril/Valsartan [Entresto 49 1 tab PO BID 09/26/24 09/26/24 mg-51 mg Tablet] Super B Complex With Vitamin C 1 tab PO DAILY 09/26/24 09/26/24 Ubidecarenone [Coenzyme Q10] 100 mg PO DAILY 09/26/24 09/26/24 Zinc Gluconate [Zinc] 25 mg PO DAILY 09/26/24 09/26/24 Previous Rx's Medication Instructions Recorded Mexiletine [Mexitil] 200 mg PO Q8HR #90 cap 02/28/22 Allergies Allergy/AdvReac Type Severity Reaction Status Date / Time Tetanus Vaccines and Toxoid Allergy Rash/Hives Verified 09/26/24 10:09 Review of Systems ROS Statement: Those systems with pertinent positive or pertinent negative responses have been documented in the HPI. ROS Other: All systems not noted in ROS Statement are negative. Past Medical History Past Medical History: Myocardial Infarction ([place]) Additional Past Medical History / Comment(s): cardiac arrest apr 2021, ventricular tachycardia Last Myocardial Infarction Date:: 05/01/2021 History of Any Multi-Drug Resistant Organisms: None Reported Past Surgical History: Heart Catheterization With Stent, Pacemaker Additional Past Surgical History / Comment(s): "stent x5 or 6 RCA june 2021" Past Anesthesia/Blood Transfusion Reactions: No Reported Reaction Date of Last Stent Placement:: 06/14/2021 Type of Cardiac Device: Permanent Pacemaker Device Placement Date:: 05/2021 Past Psychological History: No Psychological Hx Reported Smoking Status: Former smoker Past Alcohol Use History: None Reported Past Drug Use History: None Reported General Exam Limitations: no limitations General appearance: alert, in no apparent distress Respiratory exam: Present: normal lung sounds bilaterally. Absent: respiratory distress, wheezes, rales, rhonchi, stridor Cardiovascular Exam: Present: regular rate, normal rhythm, normal heart sounds. Absent: systolic murmur, diastolic murmur, rubs, gallop, clicks GI/Abdominal exam: Present: soft, normal bowel sounds, other (no focal tenderness) Extremities exam: Present: normal inspection, full ROM, normal capillary refill. Absent: tenderness, pedal edema, joint swelling, calf tenderness Neurological exam: Present: alert, oriented X3, CN II-XII intact Skin exam: Present: warm, dry, intact, normal color. Absent: rash Course Vital Signs 09/26/24 09/26/24 09/26/24 08:14 09:18 10:18 Temperature 97.9 F Pulse Rate 78 69 68 Respiratory 18 17 17 Rate Blood Pressure 126/84 117/76 91/54 O2 Sat by Pulse 100 100 100 Oximetry 09/26/24 12:00 Temperature Pulse Rate 67 Respiratory 18 Rate Blood Pressure 99/67 O2 Sat by Pulse 98 Oximetry - Reevaluation(s) Reevaluation #1: 09/26/24 11:05 Case discussed with Luis Felipe cardozo, accepts admission. Medical Decision Making - Medical Decision Making Was pt. sent in by a medical professional or institution (, PA, CYBER FORENSIC SPECIALIST, urgent care, hospital, or fci...) When possible be specific @ -No Did you speak to anyone other than the patient for history (EMS, parent, family, police, friend...)? What history was obtained from this source @ -No Did you review nursing and triage notes (agree or disagree)? Why? @ -I reviewed and agree with nursing and triage notes Were old charts reviewed (outside hosp., previous admission, EMS record, old EKG, old radiological studies, urgent care reports/EKG's, fci records)? Report findings @ -EKG reviewed from 05-16-[address] elevation. Patient treated for STEMI. Differential Diagnosis (chest pain, altered mental status, abdominal pain women, abdominal pain men, vaginal bleeding, weakness, fever, dyspnea, syncope, headache, dizziness, GI bleed, back pain, seizure, CVA, palpatations, mental health, musculoskeletal)? @ -Differential Abdominal Pain Men:Appendicitis, cholecystitis, diverticulosis, ischemic bowel, pancreatitis, hepatitis, UTI, gastroenteritis, AAA, incarcerated hernia, bowel obstruction, constipation, inflammatory bowel, hepati tis, peptic ulcer disease, splenic infarction, perforated viscus, testicular torsion, this is not meant to be an all-inclusive list EKG interpreted by me (3pts min.). @ -As above X-rays interpreted by me (1pt min.). @ -CXR interpreted me negative for focal consolidations, pneumothorax or pleural effusions CT interpreted by me (1pt min.). @ -None done U/S interpreted by me (1pt. min.). @ -None done What testing was considered but not performed or refused? (CT, X-rays, U/S, labs)? Why? @ -None What meds were considered but not given or refused? Why? @ -Patient refused zofran. Did you discuss the management of the patient with other professionals (professionals i.e. , PA, CYBER FORENSIC SPECIALIST, lab, RT, psych nurse, protective services social worker, marine photographer, teacher, airconditioning drafting officer, nurse case manager)? Give summary @ -Case discussed with Luis Felipe cardozo, accepts admission. Was smoking cessation discussed for >3mins.? @ -No Was critical care preformed (if so, how long)? @ -No Were there social determinants of health that impacted care today? How? (Homelessness, low income, unemployed, alcoholism, drug addiction, transport ation, low edu. Level, literacy, decrease access to med. care, half-way, rehab)? @ -No Was there de-escalation of care discussed even if they declined (Discuss DNR or withdrawal of care, Hospice)? DNR status @ -No What co-morbidities impacted this encounter? (DM, HTN, Smoking, COPD, CAD, Cancer, CVA, ARF, Chemo, Hep., AIDS, mental health diagnosis, sleep apnea, morbid obesity)? @ -None Was patient admitted / discharged? Hospital course, mention meds given and route, prescriptions, significant lab abnormalities, going to OR and other pertinent info. @ -Admitted. 48-year-old male presented to the ER for evaluation of nausea. Upon rooming, history and physical exam completed. Vitals within acceptable limits. Patient in no signs of acute distress nontoxic-appearing. No focal abd ominal tenderness. As patient reports nausea which was patients only symptoms with prior cardiac events, cardiac workup was obtained. Laboratory studies showed a WBC of 11.1. Troponin 0.015. Lipase 165. Viral swabs negative. Chest x-ray negative. EKG showing a sinus rhythm with ST elevation in anterior lateral leads. This is similar to prior, 05-16-2022. EKG findings discussed with Dr. Fischer at time of EKG completion. Patient refused Zofran. Patient given 1 L IV fluid bolus in the ER. Defibrillator interrogated with no recent events identified. HEART score 4. Given patient's extensive cardiac history and presenting with similar symptoms to prior events admission was considered a nd discussed with Yao Cardozo CYBER FORENSIC SPECIALIST, for cardiac rule out. Cardiology on consult. Upon reevaluation, patient resting comfortably in exam room no signs of acute distress. Results discussed with patient, all questions answered. Patient is agreeable for admission. Case discussed in detail with ED attending, Dr. Fischer. Undiagnosed new problem with uncertain prognosis? @ -No Drug Therapy requiring intensive monitoring for toxicity (Heparin, Nitro, Insulin, Cardizem)? @ -No Were any procedures done? @ -No Diagnosis/symptom? @ -Nausea r/o cardiac etiology Acute, or Chronic, or Acute on Chronic? @ -Acute Uncomplicated (without systemic symptoms) or Complicated (systemic symptoms)? @ -Complicated Side effects of treatment? @ -No Exacerbation, Progression, or Severe Exacerbation? @ -No Poses a threat to life or bodily function? How? (Chest pain, [place], [place], pneumonia, PE, COPD, DKA, ARF, appy, cholecystitis, CVA, Diverticulitis, Homicidal, Suicidal, threat to staff... and all critical care pts) @ -Yes, cannot rule out ACS - Lab Data Result diagrams: 09/26/24 08:35 09/26/24 08:35 Lab Results 09/26/24 09/26/24 09/26/24 Range/Units 08:35 08:35 08:35 WBC 11.1 H (3.8-10.6) k/uL RBC 5.24 (4.30-5.90) m/uL Hgb 14.9 (13.0-17.5) gm/dL Hct 46.4 (39.0-53.0) % MCV 88.5 (80.0-100.0) fL MCH 28.5 (25.0-35.0) pg MCHC 32.2 (31.0-37.0) g/dL RDW 12.8 (11.5-15.5) % Plt Count 225 (150-450) k/uL MPV 7.2 Neutrophils % 74 % Lymphocytes % 16 % Monocytes % 6 % Eosinophils % 2 % Basophils % 1 % Neutrophils # 8.2 H (1.3-7.7) k/uL Lymphocytes # 1.8 (1.0-4.8) k/uL Monocytes # 0.7 (0-1.0) k/uL Eosinophils # 0.3 (0-0.7) k/uL Basophils # 0.1 (0-0.2) k/uL PT 10.7 (10.0-12.5) sec INR 1.0 (<1.2) APTT 19.8 L (22.0-30.0) sec Sodium 139 (137-145) mmol/L Potassium 4.4 (3.5-5.1) mmol/L Chloride 104 (98-107) mmol/L Carbon Dioxide 26 (22-30) mmol/L Anion Gap 9 mmol/L BUN 17 (9-20) mg/dL Creatinine 1.22 (0.66-1.25) mg/dL Est GFR (CKD-EPI)AfAm 82 (>60 ml/min/1.73 sqM) Est GFR (CKD-EPI)NonAf 71 (>60 ml/min/1.73 sqM) Glucose 108 H (74-99) mg/dL Calcium 9.1 (8.4-10.2) mg/dL Magnesium 2.1 (1.6-2.3) mg/dL Total Bilirubin 0.7 (0.2-1.3) mg/dL AST 26 (17-59) U/L ALT 16 (4-49) U/L Alkaline Phosphatase 79 (38-126) U/L Troponin I (0.000-0.034) ng/mL Total Protein 7.4 (6.3-8.2) g/dL Albumin 4.2 (3.5-5.0) g/dL Amylase 78 (30-110) U/L Lipase 165 (23-300) U/L Influenza Type A (PCR) (Not Detectd) Influenza Type B (PCR) (Not Detectd) RSV (PCR) (Not Detectd) SARS-CoV-2 (PCR) (Not Detectd) 09/26/24 09/26/24 Range/Units 08:35 08:35 WBC (3.8-10.6) k/uL RBC (4.30-5.90) m/uL Hgb (13.0-17.5) gm/dL Hct (39.0-53.0) % MCV (80.0-100.0) fL MCH (25.0-35.0) pg MCHC (31.0-37.0) g/dL RDW (11.5-15.5) % Plt Count (150-450) k/uL MPV Neutrophils % % Lymphocytes % % Monocytes % % Eosinophils % % Basophils % % Neutrophils # (1.3-7.7) k/uL Lymphocytes # (1.0-4.8) k/uL Monocytes # (0-1.0) k/uL Eosinophils # (0-0.7) k/uL Basophils # (0-0.2) k/uL PT (10.0-12.5) sec INR (<1.2) APTT (22.0-30.0) sec Sodium (137-145) mmol/L Potassium (3.5-5.1) mmol/L Chloride (98-107) mmol/L Carbon Dioxide (22-30) mmol/L Anion Gap mmol/L BUN (9-20) mg/dL Creatinine (0.66-1.25) mg/dL Est GFR (CKD-EPI)AfAm (>60 ml/min/1.73 sqM) Est GFR (CKD-EPI)NonAf (>60 ml/min/1.73 sqM) Glucose (74-99) mg/dL Calcium (8.4-10.2) mg/dL Magnesium (1.6-2.3) mg/dL Total Bilirubin (0.2-1.3) mg/dL AST (17-59) U/L ALT (4-49) U/L Alkaline Phosphatase (38-126) U/L Troponin I 0.015 (0.000-0.034) ng/mL Total Protein (6.3-8.2) g/dL Albumin (3.5-5.0) g/dL Amylase (30-110) U/L Lipase (23-300) U/L Influenza Type A (PCR) Not Detected (Not Detectd) Influenza Type B (PCR) Not Detected (Not Detectd) RSV (PCR) Not Detected (Not Detectd) SARS-CoV-2 (PCR) Not Detected (Not Detectd) - EKG Data -: EKG Interpreted by Me EKG Comments: EKG taken today: 24 showing a sinus rhythm. ST elevation in anterior lateral leads appears chronic. Ventricular rate 74, NE interval 180, QRS duration 130, QT/QTc 365/393. - Radiology Data Radiology results: report reviewed, image reviewed Disposition Clinical Impression: Chest pain Disposition: ADMITTED IP TO THIS [facility] Condition: Stable Referrals: Micaela Galdamez MD [Primary Care Provider] - 1-2 days Time of Disposition: 10:55
[2024-09-26 08:56] LABS: Basophils # (A) 0.1 k/uL (0-0.2); Basophils % (A) 1 %; Eosinophils # (A) 0.3 k/uL (0-0.7); Eosinophils % (A) 2 %; HCT 46.4 % (39.0-53.0); HGB 14.9 gm/dL (13.0-17.5); Lymphocytes # (A) 1.8 k/uL (1.0-4.8); Lymphocytes % (A) 16 %; MCH 28.5 pg (25.0-35.0); MCHC 32.2 g/dL (31.0-37.0); MCV 88.5 fL (80.0-100.0); Mean Platelet Volume 7.2; Monocytes # (A) 0.7 k/uL (0-1.0); Monocytes % (A) 6 %; Neutrophils # (A) 8.2 k/uL (1.3-7.7); Neutrophils % (A) 74 %; Platelet Count 225 k/uL (150-450); RBC 5.24 m/uL (4.30-5.90); RDW 12.8 % (11.5-15.5); WBC 11.1 k/uL (3.8-10.6)
[2024-09-26 09:09] LABS: ALT 16 U/L (4-49); AST 26 U/L (17-59); African American GFR (CKD) 82 (>60 ml/min/1.73 sqM); Albumin 4.2 g/dL (3.5-5.0); Alkaline Phosphatase 79 U/L (38-126); Amylase 78 U/L (30-110); Anion Gap 9 mmol/L; Blood Urea Nitrogen 17 mg/dL (9-20); Calcium 9.1 mg/dL (8.4-10.2); Carbon Dioxide 26 mmol/L (22-30); Chloride 104 mmol/L (98-107); Glucose 108 mg/dL (74-99); Lipase 165 U/L (23-300); Magnesium 2.1 mg/dL (1.6-2.3); Non-African American GFR(CKD) 71 (>60 ml/min/1.73 sqM); Potassium 4.4 mmol/L (3.5-5.1); Sodium 139 mmol/L (137-145); Total Bilirubin 0.7 mg/dL (0.2-1.3); Total Protein 7.4 g/dL (6.3-8.2)
[2024-09-26 09:15] LABS: Prothrombin Time 10.7 sec (10.0-12.5)
[2024-09-26 09:21] LABS: Partial Thromboplastin Time 19.8 sec (22.0-30.0)
[2024-09-26 09:32] LABS: Influenza A Not Detected (Not Detectd); Influenza B Not Detected (Not Detectd); RSV Not Detected (Not Detectd)
[2024-09-26] MEDS: ONDANSETRON ODT 4 MG TAB PO STA (09:48)
--- NOTE | 2024-09-26 09:58 | XR ---
EXAMINATION TYPE: XR chest 2V DATE OF EXAM: 09/26/2024 9:27 AM COMPARISON: 05/16/2022 CLINICAL INDICATION: Male, 48 years old with history of nausea, TECHNIQUE: XR chest 2V view(s) obtained. FINDINGS: The heart size is normal. Pacemaker overlies left chest The pulmonary vasculature is normal. The lungs are clear. IMPRESSION: 1. No acute pulmonary process. [facility], , 09/26/2024 9:56 AM
[2024-09-26] MEDS: SODIUM CHLORIDE 0.9% 1,000 ML IV STA (10:42)
[2024-09-26] MEDS ORDERED: NALOXONE 0.4 MG/ML 1 ML VIAL IV PRN (10:52)
[2024-09-26] MEDS ORDERED: ACETAMINOPHEN TAB 325 MG TAB PO PRN (10:52)
[2024-09-26] MEDS ORDERED: TRIMETHOBENZAMIDE 100 MG/ML 2 ML VIAL IM PRN (13:46)
--- NOTE | 2024-09-26 13:49 | P.HPIM ---
History of Present Illness H&P Date: 09/26/24 48 year old M with PMH of CAD with stents and pacemaker, h/o cardiac arrest, h/o VTach + AFlutter, systolic CHF presents to the ED for intermittent nausea that started yesterday afternoon. He denies any abdominal pain or vomiting. He also noted an abnormal heart beat during these episodes. He reports a h/o VTach with similar symptoms in the past. He denies any headache, lower extremity edema, fever or chills, cough, chest pain, shortness of breath, changes in urination or bowel habits. No changes in appetite or weight. No dizziness, numbness/weakness/tingling of the extremities. In the ED he underwent extensive evaluation. BP 126/84, HR 78, T 97.9F, RR 18, 100% on RA. CBC, Coag panel, CMP significant for WBC 11.1, APTT 19.8, glu 108. Amylase 78. Lipase 165. COVID/RSV/Flu neg. Trop 0.015. Mag 2.1. CXR neg. EKG sinus rhythm with Q waves in multiple leads. Patient is admitted for Cardiology evaluation. General: non toxic, no distress, appears at stated age Derm: warm, dry Head: atraumatic, normocephalic, symmetric Eyes: EOMI, no lid lag, anicteric sclera Mouth: no lip lesion, mucus membranes moist Cardiovascular: S1S2 reg, no murmur Lungs: CTA bilateral, no rhonchi, no rales , no accessory muscle use Ext: no gross muscle atrophy, no edema, no contractures Neuro: no focal neuro deficits Psych: Alert, oriented, appropriate affect Based on my assessment of this patient, this patient meets a high complexity level of care. Nausea: Trend Trop/EKG to rule out ACS. Telemetry monitoring. Tigan 200 mg IM Q6 PRN for nausea if needed. Cardiology evaluation. PVCs: Metoprolol as below. CAD with stents and pacemaker: Management as below. h/o VTach + AFlutter: Metoprolol 25 mg PO QD. Mexiletine 200 mg PO TID. Sotalol 80 mg PO QD. Systolic CHF: Farxiga 5 mg PO QD. Metoprolol as above. Entresto 1 tab PO BID. CODE STATUS: FULL CODE DVT Prophylaxis: Eliquis GI Prophylaxis: Designated medical POA if patient is not able to make medical decisions for themselves: I have reviewed the following wireless consultant notes: ED note I have reviewed the results of the following tests: As above I have ordered the following tests: As above I have discussed the care of this patient with the following independent historian: Family at bedside. I have independently interpreted the following test below: EKG I have discussed the management of this patient with the following physician: Past Medical History Past Medical History: Myocardial Infarction ([place]) Additional Past Medical History / Comment(s): cardiac arrest apr 2021, ventric ular tachycardia Last Myocardial Infarction Date:: 05/01/2021 History of Any Multi-Drug Resistant Organisms: None Reported Past Surgical History: Heart Catheterization With Stent, Pacemaker Additional Past Surgical History / Comment(s): "stent x5 or 6 RCA june 2021" Past Anesthesia/Blood Transfusion Reactions: No Reported Reaction Date of Last Stent Placement:: 06/14/2021 Type of Cardiac Device: Permanent Pacemaker Device Placement Date:: 05/2021 Past Psychological History: No Psychological Hx Reported Smoking Status: Former smoker Past Alcohol Use History: None Reported Past Drug Use History: None Reported Medications and Allergies Home Medications Medication Instructions Recorded Confirmed Type Apixaban [Eliquis] 5 mg PO BID 02/27/22 09/26/24 History Mexiletine [Mexitil] 200 mg PO Q8HR #90 cap 02/28/22 09/26/24 Rx Sotalol [Betapace] 80 mg PO DAILY 05/16/22 09/26/24 History Atorvastatin [Lipitor] 80 mg PO HS 09/26/24 09/26/24 History Empagliflozin [Jardiance] 10 mg PO DAILY 09/26/24 09/26/24 History Metoprolol Succinate [Metoprolol 25 mg PO DAILY 09/26/24 09/26/24 History Succinate ER] Nitroglycerin Sl Tabs [Nitrostat] 0.4 mg SUBLINGUAL Q5M PRN 09/26/24 09/26/24 History Sacubitril/Valsartan [Entresto 49 1 tab PO BID 09/26/24 09/26/24 History mg-51 mg Tablet] Super B Complex With Vitamin C 1 tab PO DAILY 09/26/24 09/26/24 History Ubidecarenone [Coenzyme Q10] 100 mg PO DAILY 09/26/24 09/26/24 History Zinc Gluconate [Zinc] 25 mg PO DAILY 09/26/24 09/26/24 History Allergies Allergy/AdvReac Type Severity Reaction Status Date / Time Tetanus Vaccines and Toxoid Allergy Rash/Hives Verified 09/26/24 10:09 Physical Exam Vitals: Vital Signs Temp Pulse Resp BP Pulse Ox 09/26/24 12:00 67 18 99/67 98 09/26/24 10:18 68 17 91/54 100 09/26/24 09:18 69 17 117/76 100 09/26/24 08:14 97.9 F 78 18 126/84 100 Intake and Output 09/25/24 09/26/24 09/26/24 22:59 06:59 14:59 Other: Weight 86.183 kg Results CBC & Chem 7: 09/26/24 08:35 09/26/24 08:35 Labs: Abnormal Lab Results - Last 24 Hours (Table) 09/26/24 09/26/24 09/26/24 Range/Units 08:35 08:35 08:35 WBC 11.1 H (3.8-10.6) k/uL Neutrophils # 8.2 H (1.3-7.7) k/uL APTT 19.8 L (22.0-30.0) sec Glucose 108 H (74-99) mg/dL
[2024-09-26] MEDS: MEXILETINE 200 MG CAP PO SCH (15:37)
[2024-09-26] MEDS: SACUBITRIL/VALSARTAN 49 MG-51 MG TABLET PO SCH (21:05)
[2024-09-26] MEDS: APIXABAN 5 MG TAB PO SCH (21:05)
[2024-09-26] MEDS: ATORVASTATIN 80 MG TAB PO SCH (21:05)
[2024-09-27 07:16] VITALS: PULSE 58
[2024-09-27] MEDS: METOPROLOL SUCCINATE (ER) 25 MG TAB.ER.24H PO SCH (08:34)
[2024-09-27 08:35] VITALS: BP 106/71; RESP 15; TEMP 97.7
[2024-09-27] MEDS: DAPAGLIFLOZIN PROPANEDIOL 10 MG TABLET PO SCH (08:38)
[2024-09-27] MEDS ORDERED: DAPAGLIFLOZIN PROPANEDIOL 5 MG TABLET PO SCH (09:00)
[2024-09-27] MEDS ORDERED: CALCIUM CARBONATE 500 MG CHEWABLE PO PRN (10:27)
--- NOTE | 2024-09-27 12:21 | P.CRDCN ---
History of Present Illness Consult date: 09/27/24 Requesting physician: Travis Callaway Reason for Consult (text): nausea/cardiac history Chief complaint: nausea, PVCs History of present illness: This is a pleasant 48-year-old male patient of Dr. Aguilera and also [facility] heart failure clinic.He has a past medical history of cardiac arrest in 2020 at which time he underwent cardiac catheterization that showed totally occluded LAD and RCA, was in cardiogenic shock and transferred to [facility] at which time he underwent stenting of the RCA and ICD implantation. History of ischemic cardiomyopathy with most recent available echocardiogram from 2021 showing ejection fraction of 30 to 35%. He has a known LV thrombus and on Eliquis for that. the patient has had more recent testing done in our office and according to him things were stable but these results are not available to me. Presented to the hospital with complaints of nausea and noticed PVCs on his smart watch ECG albino and was concerned as he once had VT with symptoms of nausea. He has nausea is mostly after eating and he notes when he has nausea and checks his ECG albino on his smart phone he is having occasional PVCs. He has had no ICD discharges. His device was interrogated and showed 1 episode, brief of nonsustained VT on August 10 which patient was already aware of but no recent arrhythmias. Troponins have been negative x 2. He is mostly concerned about his nausea and requesting an ultrasound. He has had no chest discomfort, shortness of breath, orthopnea or PND. He exercises a couple days a week without issue. He works full-time. Has had no change in his exercise capacity or tolerance. He is scheduled for testing at [facility] on 06 October. Diagnostics -EKG: Sinus rhythm with evidence of prior TN, no significant changes from previous EKG -Chest x-ray: No acute pulmonary process -Laboratory studies: White blood cell count 11.1, sodium 139, potassium 4.4, BUN 17, creatinine 1.22, troponin 0.015 and less than 0.012 -Home cardiac medications: Mexiletine 200 mg p.o. every 8 hours, Entresto 49-51 mg tablet 1 tablet p.o. twice daily, Eliquis 5 mg p.o. twice daily, sotalol 80 mg p.o. daily, metoprolol succinate 25 mg p.o. daily, Jardiance 10 mg p.o. daily and Lipitor 80 mg p.o. nightly -Prior stress test: Results not available -Echocardiogram: Unavailable -Cardiac catheterization: May 2022 showed patent stent within the RCA with chronically occluded left anterior descending artery Review Of Systems: At the time of my exam: CONSTITUTIONAL: Denies fever or chills. HEENT: Denies blurred vision, vision changes. CARDIOVASCULAR: Denies chest pain. Denies orthopnea. Denies PND. Denies palpitations, dizziness, or syncope. RESPIRATORY: Denies shortness of breath, wheezing, or cough. Denies hemoptysis. GASTROINTESTINAL: Denies abdominal pain. Denies nausea or vomiting. Denies bleeding. HEMATOLOGIC: Denies bleeding disorders. GENITOURINARY: Denies hematuria. SKIN: Denies puritis. Denies rash. PHYSICAL EXAMINATION: This is a 48-year-old male in no apparent distress at the time of my examination. VITAL SIGNS: Reviewed. HEENT: Head is atraumatic, normocephalic. Pupils are equal, round. Sclerae anicteric. Conjunctivae are clear. Mucous membranes of the mouth are moist. Neck is supple. There is no elevated jugular venous pressure. No carotid bruit is heard. CHEST EXAMINATION: Clear to auscultation bilaterally. No wheezes rales or rhonchi. Respirations even and nonlabored. HEART EXAMINATION: Heart regular, positive S1 and S2. No S3. No S4. No clicks, rubs or murmurs. ABDOMEN: Soft, nontender. Bowel sounds are heard. No organomegaly noted. EXTREMITIES: 2+ peripheral pulses with no evidence of peripheral edema and no calf tenderness noted. NEUROLOGIC EXAMINATION: Patient is awake, alert and oriented x3. Assessment: 1. Symptoms of nausea after eating 2. PVCs 3. Ischemic cardiomyopathy with prior stenting of the RCA and known [employer] of the LAD 4. Status post ICD placement 5. LV thrombus Plan: From cardiology's perspective no need for cardiac workup at this time. Patient will keep his appointment on October 06 at [facility]. He will follow-up in the office with Dr. Aguilera. Evaluation of nausea deferred to primary. Thank you kindly for this consultation. Nurse practitioner note has been reviewed, I agree with documented findings and plan of care. Patient was seen and examined. Past Medical History Past Medical History: Myocardial Infarction (TN) Additional Past Medical History / Comment(s): cardiac arrest sept 2021, ventr icular tachycardia Last Myocardial Infarction Date:: 05/01/2021 History of Any Multi-Drug Resistant Organisms: None Reported Past Surgical History: Heart Catheterization With Stent, Pacemaker Additional Past Surgical History / Comment(s): "stent x6 RCA june 2021" [employer] AV pacer difib Past Anesthesia/Blood Transfusion Reactions: No Reported Reaction Date of Last Stent Placement:: 06/14/2021 Type of Cardiac Device: Permanent Pacemaker, AICD Device Placement Date:: 05/2021 Past Psychological History: No Psychological Hx Reported Smoking Status: Former smoker Past Alcohol Use History: None Reported Past Drug Use History: None Reported Medications and Allergies Home Medications Medication Instructions Recorded Confirmed Type Apixaban [Eliquis] 5 mg PO BID 02/27/22 09/26/24 History Mexiletine [Mexitil] 200 mg PO Q8HR #90 cap 02/28/22 09/26/24 Rx Sotalol [Betapace] 80 mg PO DAILY 05/16/22 09/26/24 History Atorvastatin [Lipitor] 80 mg PO HS 09/26/24 09/26/24 History Empagliflozin [Jardiance] 10 mg PO DAILY 09/26/24 09/26/24 History Metoprolol Succinate [Metoprolol 25 mg PO DAILY 09/26/24 09/26/24 History Succinate ER] Nitroglycerin Sl Tabs [Nitrostat] 0.4 mg SUBLINGUAL Q5M PRN 09/26/24 09/26/24 History Sacubitril/Valsartan [Entresto 49 1 tab PO BID 09/26/24 09/26/24 History mg-51 mg Tablet] Super B Complex With Vitamin C 1 tab PO DAILY 09/26/24 09/26/24 History Ubidecarenone [Coenzyme Q10] 100 mg PO DAILY 09/26/24 09/26/24 History Zinc Gluconate [Zinc] 25 mg PO DAILY 09/26/24 09/26/24 History Allergies Allergy/AdvReac Type Severity Reaction Status Date / Time Tetanus Vaccines and Toxoid Allergy Rash/Hives Verified 09/26/24 10:09 Physical Exam Vitals: Vital Signs Temp Pulse Pulse Resp BP BP Pulse Ox 09/27/24 08:34 97.7 F 58 L 15 106/71 100 09/27/24 07:15 58 L 18 91/59 95 09/27/24 06:28 98.3 F 63 14 88/62 100 09/26/24 22:54 65 18 90/55 97 09/26/24 19:15 98.0 F 68 18 98/68 98 09/26/24 17:47 76 18 109/80 99 09/26/24 15:39 67 18 95/64 97 09/26/24 12:00 67 18 99/67 98 Intake and Output 09/26/24 09/27/24 09/27/24 22:59 06:59 14:59 Other: Voiding Method Toilet Weight 86.183 kg Results 09/26/24 08:35 09/26/24 08:35 Cardiac Enzymes 09/26/24 Range/Units 13:15 Troponin I <0.012 (0.000-0.034) ng/mL Current Medications Generic Name Dose Route Start Last Admin Trade Name Freq PRN Reason Stop Dose Admin Acetaminophen 650 mg 09/26/24 10:52 Acetaminophen Tab 325 Mg Tab PO Q6HR PRN Mild Pain or Fever > 100.5 Apixaban 5 mg 09/26/24 21:00 09/27/24 08:34 Apixaban 5 Mg Tab PO 5 mg BID KRISHNA Administration Protocol Atorvastatin Calcium 80 mg 09/26/24 21:00 09/26/24 21:05 Atorvastatin 80 Mg Tab PO 80 mg HS KRISHNA Administration Calcium Carbonate/Glycine 500 mg 09/27/24 10:27 Calcium Carbonate 500 Mg Chewable PO QID PRN Heartburn Dapagliflozin 10 mg 09/27/24 09:00 09/27/24 08:38 Dapagliflozin Propanediol 10 Mg Tablet PO Not Given DAILY KRISHNA Famotidine 20 mg 09/28/24 09:00 Famotidine 20 Mg Tab PO DAILY KRISHNA Metoprolol Succinate 25 mg 09/27/24 09:00 09/27/24 08:34 Metoprolol Succinate (Er) 25 Mg Tab.Er.24h PO 25 mg DAILY KRISHNA Administration Mexiletine HCl 200 mg 09/26/24 16:00 09/27/24 07:14 Mexiletine 200 Mg Cap PO 200 mg Q8HR KRISHNA Administration Naloxone HCl 0.2 mg 09/26/24 10:52 Naloxone 0.4 Mg/Ml 1 Ml Vial IV Q2M PRN Opioid Reversal Sacubitril/Valsartan 1 each 09/26/24 21:00 09/27/24 08:34 Sacubitril/Valsartan 49 Mg-51 Mg Tablet PO 1 each BID KRISHNA Administration Sotalol HCl 80 mg 09/27/24 09:00 Sotalol 80 Mg Tab PO DAILY KRISHNA Trimethobenzamide HCl 200 mg 09/26/24 13:46 Trimethobenzamide 100 Mg/Ml 2 Ml Vial IM Q6HR PRN Nausea Intake and Output 09/26/24 09/27/24 09/27/24 22:59 06:59 14:59 Other: Voiding Method Toilet Weight 86.183 kg 09/26/24 08:35 09/26/24 08:35
--- NOTE | 2024-09-27 13:01 | P.DS ---
Providers Date of admission: 09/26/24 12:57 Expected date of discharge: 09/27/24 Attending physician: Travis Callaway MD Consults: 09/26/24 12:35 Consult Physician Stat Consulting Provider: Neida Aguilera Consult Reason/Comments: nausea/cardiac history Do you want consulting provider notified?: Yes Primary care physician: Micaela Galdamez MD Hospital Course: 48 year old M with PMH of CAD with stents and pacemaker, h/o cardiac arrest, h/o VTach + AFlutter, systolic CHF presents to the ED for intermittent nausea that started yesterday afternoon. He denies any abdominal pain or vomiting. He also noted an abnormal heart beat during these episodes. He reports a h/o VTach with similar symptoms in the past. He denies any headache, lower extremity edema, fever or chills, cough, chest pain, shortness of breath, changes in urination or bowel habits. No changes in appetite or weight. No dizziness, numbness/weakness/tingling of the extremities. In the ED he underwent extensive evaluation. BP 126/84, HR 78, T 97.9F, RR 18, 100% on RA. CBC, Coag panel, CMP significant for WBC 11.1, APTT 19.8, glu 108. Amylase 78. Lipase 165. COVID/RSV/Flu neg. Trop 0.015. Mag 2.1. CXR neg. EKG sinus rhythm with Q waves in multiple leads. Patient is admitted for Cardiology evaluation. Troponin < 0.012. ACS ruled out. AICD interrogated, no events. Cardiology evaluated, no further workup, cleared for discharge. 09/27 Patient was seen and examined. Reports nausea with food intake. No chest pain. Discharge Instructions: Follow up with your PCP within 1-2 days of discharge and Dr. Aguilera within 2 weeks of discharge. General: non toxic, no distress, appears at stated age Derm: warm, dry Head: atraumatic, normocephalic, symmetric Eyes: EOMI, no lid lag, anicteric sclera Mouth: no lip lesion, mucus membranes moist Cardiovascular: S1S2 reg, no murmur Lungs: CTA bilateral, no rhonchi, no rales , no accessory muscle use Ext: no gross muscle atrophy, no edema, no contractures Neuro: no focal neuro deficits Psych: Alert, oriented, appropriate affect Discharge Diagnosis: Nausea possibly GERD versus PUD versus gastritis PVCs CAD with stents and pacemaker h/o VTach + AFlutter Systolic CHF Patient Condition at Discharge: Stable Plan - Discharge Summary Discharge Rx Participant: Yes New Discharge Prescriptions: New Calcium Carbonate [Tums] 500 mg PO QID PRN tab PRN Reason: Heartburn Famotidine [Pepcid] 20 mg PO DAILY #30 tab Continue Sotalol [Betapace] 80 mg PO DAILY Metoprolol Succinate [Metoprolol Succinate ER] 25 mg PO DAILY Empagliflozin [Jardiance] 10 mg PO DAILY Atorvastatin [Lipitor] 80 mg PO HS Ubidecarenone [Coenzyme Q10] 100 mg PO DAILY Nitroglycerin Sl Tabs [Nitrostat] 0.4 mg SUBLINGUAL Q5M PRN PRN Reason: Chest Pain Apixaban [Eliquis] 5 mg PO BID Mexiletine [Mexitil] 200 mg PO Q8HR #90 cap Sacubitril/Valsartan [Entresto 49 mg-51 mg Tablet] 1 tab PO BID Zinc Gluconate [Zinc] 25 mg PO DAILY Super B Complex With Vitamin C 1 tab PO DAILY Discharge Medication List Apixaban [Eliquis] 5 mg PO BID 02/27/22 [History] Mexiletine [Mexitil] 200 mg PO Q8HR #90 cap 02/28/22 [Rx] Sotalol [Betapace] 80 mg PO DAILY 05/16/22 [History] Atorvastatin [Lipitor] 80 mg PO HS 09/26/24 [History] Empagliflozin [Jardiance] 10 mg PO DAILY 09/26/24 [History] Metoprolol Succinate [Metoprolol Succinate ER] 25 mg PO DAILY 09/26/24 [History] Nitroglycerin Sl Tabs [Nitrostat] 0.4 mg SUBLINGUAL Q5M PRN 09/26/24 [History] Sacubitril/Valsartan [Entresto 49 mg-51 mg Tablet] 1 tab PO BID 09/26/24 [History] Super B Complex With Vitamin C 1 tab PO DAILY 09/26/24 [History] Ubidecarenone [Coenzyme Q10] 100 mg PO DAILY 09/26/24 [History] Zinc Gluconate [Zinc] 25 mg PO DAILY 09/26/24 [History] Calcium Carbonate [Tums] 500 mg PO QID PRN tab 09/27/24 [Rx] Famotidine [Pepcid] 20 mg PO DAILY #30 tab 09/27/24 [Rx] Follow up Appointment(s)/Referral(s): Micaela Galdamez MD [Primary Care Provider] - 1-2 days Neida Aguilera MD [STAFF PHYSICIAN] - 2 Weeks Discharge Disposition: HOME SELF-CARE
[2024-09-27] MEDS: SOTALOL 80 MG TAB PO SCH (13:36)
[2024-09-28] MEDS ORDERED: FAMOTIDINE 20 MG TAB PO SCH (09:00)
== END 2024-09-27 13:46 | disposition home or self-care (01) ==
LOC: EC 08:13 → 6NMEDSUR 12:57
PROVIDERS: ADMIT Internal Medicine; ATTEND Internal Medicine
DX: R11.0 Nausea (principal); I49.3 Ventricular premature depolarization; I24.0 Acute coronary thrombosis not resulting in myocardial infarction; I25.10 Atherosclerotic heart disease of native coronary artery without angina pectoris; I25.5 Ischemic cardiomyopathy; I50.20 Unspecified systolic (congestive) heart failure; I25.2 Old myocardial infarction; Z79.01 Long term (current) use of anticoagulants; Z79.84 Long term (current) use of oral hypoglycemic drugs; Z79.899 Other long term (current) drug therapy; Z88.7 Allergy status to serum and vaccine; Z11.52 Encounter for screening for COVID-19; Z11.59 Encounter for screening for other viral diseases; Z95.5 Presence of coronary angioplasty implant and graft; Z86.74 Personal history of sudden cardiac arrest; Z95.810 Presence of automatic (implantable) cardiac defibrillator; Z87.891 Personal history of nicotine dependence; Z86.79 Personal history of other diseases of the circulatory system
CPT/HCPCS: 96360; 99285; 36415; 93005; 80053; 82150; 83690; 83735; 84484; 85025; 85610; 85730; 87636; 71046; G0378 ×2; 96361